=== PATIENT | male | born 1955 | race Caucasian/White ===

== ENCOUNTER 2019-07-04 10:08 | Outpatient (RCR) | payer MEDICARE, MEDICAID, SELFPAY ==
[2019-07-04 12:07] LABS: Add Urine Microscopic? YES; Bilirubin Urine Neg (NEGATIVE); Blood Urine Neg (Negative); Glucose Urine UA Norm (Normal); Ketones Urine Negative (Negative); Leukocyte Esterase Urine 2+ (Negative); Nitrate Urine Positive (Negative); Protein Urine Neg (Negative); Specific Gravity, Urine 1.015 (1.005-1.030); Sulfosalicylic Acid Urine Negative; Urine Appearance Cloudy (CLEAR); Urine Color Amber (Yellow); Urobilinogen Urine Norm (Negative); pH Urine 8.5 (5-7)
[2019-07-04 12:08] LABS: Add Urine Culture? Yes; Amorphous Sediment Urine 2+; Bacteria Urine 4+; Calcium Oxalate Crystals Urine 15-25 /hpf; Mucus Urine 1+; RBC Urine 0-4 /hpf (0-2); Squamous Epithelial Cell Urine 0-4 (0-5)
== END 2019-07-27 23:59 | disposition home or self-care (01) ==
LOC: LAB 10:08
PROVIDERS: Family Provider Physician Assistant Medical; Visit Provider Family Medicine
DX: N39.0 Urinary tract infection, site not specified (principal)
CPT/HCPCS: 81003; 87077; 87086; 87186

== ENCOUNTER 2019-07-17 13:28 | Outpatient (CLI) | payer MEDICARE, MEDICAID, SELFPAY ==
--- NOTE | 2019-07-17 13:37 | XRR_ITS ---
PROCEDURE INFORMATION: Exam: XR Abdomen, 1 View Exam date and time: 07/17/2019 1:54 PM Age: 63 years old Clinical indication: Condition or disease; Other: Calculus of urinary bladder; Patient HX: Best images possible PT is parapalegic TECHNIQUE: Imaging protocol: XR of the abdomen. Views: Frontal supine view of the abdomen. 1 View. COMPARISON: CR XR KUB [id number] 03/06/2019 2:19 PM FINDINGS: Gastrointestinal tract: Normal. No bowel dilation. Bones/joints: Unremarkable. XR/XR KUB [id number] IMPRESSION: No acute findings.
== END 2019-07-17 13:29 | disposition home or self-care (01) ==
LOC: RAD 13:33
PROVIDERS: Family Provider Physician Assistant Medical; PCP Urology; Visit Provider Urology
DX: N21.0 Calculus in bladder (principal)
CPT/HCPCS: 74018

== ENCOUNTER 2019-07-26 11:35 | Day surgery (SDC) | payer MEDICARE, MEDICAID, SELFPAY ==
[2019-07-25 16:06] VITALS: BMI 24.1
[2019-07-26 12:01] VITALS: BP 105/58; PULSE 79; RESP 18; TEMP 36.1; O2SAT 99
[2019-07-26] MEDS: sodium chloride 0.9% 1,000 ML 30 ML IV (12:11)
--- NOTE | 2019-07-26 12:23 | ANES.PREANES ---
Pre-Anesthetic Assessment Pre-Anesthetic Assessment: Height/Weight: Height 1.85 m Weight 83.007 kg Temp Pulse Resp BP Pulse Ox 96.9 F L 79 18 105/58 99 07/26/19 12:01 07/26/19 12:01 07/26/19 12:01 07/26/19 12:01 07/26/19 12:01 Preop Diagnosis: Cystolithiasis Proposed Procedure: Operation Date: 07/26/19 13:00 Proposed Procedures p Cystolitholapaxy(Not Applicable) - Jeet Tenorio MD Last intake: Intake Last Liquid Date 07/25/19 Last Solid Date 07/25/19 Social: Social History: No alcohol and No tobacco Exam: Pre-Anes Outpt Exam: alert, oriented x 3, clear to auscultation bilaterally and regular rate & rhythm Airway: Submandibular: WNL Cervical ROM: WNL MP: 2 Dentition: Full History/ROS: No significant history except as noted Pulmonary: Pulmonary: None reported CV/HEM: Comments: autonomic hyperreflexia : Comments: bladder stones, super pubic cath Hepatic: Hepatic: None reported GI: GI: None reported Metabolic: Metabolic: None reported Musc/skel: Comments: quadraplegic Neuropsych: Comments: C6-7 spinal cord injury Anesthetic Plan: ASA status: III Anesthesia: Anesthesia Evaluation and General Risk of > 500 ml blood loss (7ml/kg in children): No Meds/Allergies Current Medications: Current Medications Generic Name Dose Route Start Last Admin Trade Name Freq PRN Reason Stop Dose Admin Sodium Chloride 1,000 mls @ 30 ml s/hr 07/26/19 11:45 07/26/19 12:11 Sodium Chloride 0.9% IV 07/27/19 11:44 30 mls/hr .Q24H STEPHAN Administration PFSH Anesthesia PFSH: Medical History Bladder calculus (Acute) History of chronic urinary tract infection (Acute) Neurogenic bladder (Acute) Quadriplegia, unspecified (Acute) Surgical History History of back surgery (Acute) Family History Father , 86 CAD (coronary artery disease) Mother Diabetes Social History Smoking and tobacco status: former smoker Alcohol intake: never Adopted: No Caregiver/support person: No Lives independently: No Marital status: Single Current occupational status: disabled Data Anesthesia Cardiac Studies: No Data to Display
--- NOTE | 2019-07-26 12:42 | PM.HPUD ---
H&P update H&P Update: DATE OF SURGERY/PROCEDURE: 07/26/19 DATE H&P PERFORMED: 07/17/19 PLANNED PROCEDURE: Operation Date: 07/26/19 13:00 Proposed Procedures p Cystolitholapaxy(Not Applicable) - Jeet Tenorio MD Full H&P Medications/Allergies: Current Medications: Current Medications Generic Name Dose Route Start Last Admin Trade Name Freq PRN Reason Stop Dose Admin Sodium Chloride 1,000 mls @ 30 ml s/hr 07/26/19 11:45 07/26/19 12:11 Sodium Chloride 0.9% IV 07/27/19 11:44 30 mls/hr .Q24H STEPHAN Administration Perinent History: Medical/Surgical History: Medical History (Updated 07/17/19 @ 18:23 by Jeet Tenorio MD) Bladder calculus (Acute) History of chronic urinary tract infection (Acute) Neurogenic bladder (Acute) Quadriplegia, unspecified (Acute) Family History: Family History (Updated 07/04/19 @ 10:25 by Monique Gil RN) Father , 86 CAD (coronary artery disease) Mother Diabetes Social History: Social History Smoking and tobacco status: former smoker Alcohol intake: never Adopted: No Caregiver/support person: No Lives independently: No Marital status: Single Current occupational status: disabled
--- NOTE | 2019-07-26 13:52 | P.OP_ITS ---
Operative Report Date of procedure: July 26, 2019 Pre-op Diagnosis: Cystolithiasis Post-op diagnosis: same Procedure Done: Cystolitholapaxy greater than sign 2.5 cm Implants: Replaced suprapubic tube with 24 Cook Islander 10 cc balloon Specimens removed/disposition: Bladder stone fragment Pathology: other (Stone fragments) Surgeon: Jeet Tenorio Anesthesia: General Estimated blood loss: None Urine output: Not measured Complications: None Findings: 3 stones completely fragmented and evacuated from the bladder. No complications no problems. Condition: stable Brief History: Curtis is a quadriplegic with a longstanding suprapubic tube and despite utilizing Renacidin irrigation he has continued to form recurrent bladder stones. The right has been decreased though. Symptomatic bladder stones led to this admission for cystolitholapaxy. Procedure: After routine preoperative evaluation examination and obtaining of informed consent he was taken to the operating suite on 07/26/2019 where general anesthesia was administered without difficulty after appropriate timeout was performed, SCDs confirmed to be functioning, preoperative antibiotics administered, and beta-soto protocol confirmed. Prepped and draped in usual sterile fashion in dorsolithotomy position pain careful attention to avoiding pressure points. 23 Cook Islander cystoscope with 30 degree lens was introduced into the urethral meatus and advanced into the bladder under videoscopy. The stones were identified. The suprapubic site was used for replacement of a 24 Cook Islander Junior catheter with 10 cc and placed in the balloon. The stones were then fragmented with a 910 ?m holmium laser fiber into small enough pieces that were easily evacuated from the bladder with a new like evacuator. On final inspection all stones were confirmed to be out. The bladder mucosa was healthy without any significant trauma. The suprapubic catheter balloon was inflated in the bladder in the appropriate position was confirmed. Tolerated the procedure well without complications and was awakened in the operating room and returned to the care of room in stable condition. PLANS: 1. Follow-up in 3 months with KUB 2. Sooner for any concerns or questions.
[2019-07-26 13:57] VITALS: BP 146/84; PULSE 71; RESP 18; TEMP 36.7; O2SAT 100
[2019-07-26 14:00] VITALS: BP 135/68; PULSE 69; RESP 19; O2SAT 100
[2019-07-26 14:05] VITALS: BP 115/63; PULSE 73; RESP 20; TEMP 36.4; O2SAT 98
[2019-07-26 14:13] VITALS: BP 126/66; PULSE 86; RESP 16; TEMP 36.6; O2SAT 95
[2019-07-26 14:28] VITALS: BP 115/79; PULSE 76; RESP 16; O2SAT 96
--- NOTE | 2019-07-26 15:16 | SUR.PHASEI ---
1357- RECEIVED PATIENT IN PACU FROM OR VIA [facility]. RESP ARE EVEN AND NONLABORED. SIMPLE MASK APPLIED AT 6LPM, SAT 97%. HE IS AWAKE AND ALERT, DROWSY. NO S/S PAIN OR NAUSEA 1408- TRANSFERRED PATIENT FROM PACU TO OPS VIA [facility]. RESP ARE EVEN AND NONLABORED. SAT 96% WITH ROOM AIR. HE IS AWAKE AND ALERT, TALKATIVE. DENIES PAIN OR NAUSEA. TRANSITION OF CARE TO [facility]
--- NOTE | 2019-07-26 15:22 | SUR.PHASEII ---
FACE SHEET AND ORDER FOR ALLI FAXED TO [facility] SCHEDULING AND MAIN ADMISSIONS,FAXED TO BOTH PLACES CONFIRMED AT 1430 CALLED REBECCA IN [facility] SCHEDULING AT 1520 AND STATED SHE DIDN'T RECEIVE ANY PAPERWORK BUT WOULD SCHEDULE PT FOR BENB ON September AT 915AM
--- NOTE | 2019-07-26 16:24 | SUR.PHASEII ---
SPOKE WITH GISELA IN MAIN ADMISSIONS REGARDING KUB SCHEDULED FOR September AT 915AM AND STATES THAT SHE CAN SEE THE APPOINTMENT NOW BUT [facility] SCHEDULING IS AWAITING A DR'S ORDER,ORDER FAXED AND CONFIRMED MULTIPLE TIMES,OUTPATIENT REQUEST ALSO FILLED OUT AND FAXED TO [facility] SCHEDULING
--- NOTE | 2019-07-26 16:36 | SUR.PHASEII ---
SPOKE WITH REBECCA IN [facility]EN[facility]AL[facility]ED SCHEDULING AND ORDER RECEIVED PER REBECCA WITH OUTPATIENT REQUEST FORM FAXED TO HER
[2019-07-31 15:52] LABS: Stone Source BLADDER STONE
== END 2019-07-26 14:55 | disposition home or self-care (01) ==
PROVIDERS: Family Provider Physician Assistant Medical; PCP Urology; Visit Provider Urology
PROC: 0TCB8ZZ Extirpation of Matter from Bladder, Via Natural or Artificial Opening Endoscopic (ICD-10-PCS; CPT 52318; principal; 2019-07-26 13:00)
DX: N21.0 Calculus in bladder (principal); Z82.49 Family history of ischemic heart disease and other diseases of the circulatory system; Z83.3 Family history of diabetes mellitus; Z87.891 Personal history of nicotine dependence; Z87.440 Personal history of urinary (tract) infections
CPT/HCPCS: 52318; 12345; 82365; 88300; J1100; J2001; J2405; J2704; J3010; J7030

== ENCOUNTER 2019-07-27 14:39 | Outpatient (RCR) | payer MEDICARE, MEDICAID, SELFPAY | END 2019-07-27 23:59 | disposition home or self-care (01) | LOC: WOUND 14:39 | PROVIDERS: Family Provider Physician Assistant Medical; PCP Urology; Visit Provider Surgery | DX: I96 Gangrene, not elsewhere classified (principal); L89.153 Pressure ulcer of sacral region, stage 3 | CPT/HCPCS: 11044; 11047; 87070; 87176; 87205; 99213; G0463 ==

== ENCOUNTER 2019-07-31 08:33 | Outpatient (RCR) | payer MEDICARE, MEDICAID, SELFPAY ==
--- NOTE | 2019-07-31 08:45 | CT_ITS ---
WS: [id number] CT scan of the pelvis. Additional two-dimensional coronal and sagittal reconstruction was performed. 07/31/2019 Clinical Data: PAIN/REDNESS/NON HEALING ULCER/?OSTEOMYELITIS Comparison: CT pelvis, 12/28/2018 DLP: 367.[address] scans at [facility] use at least one of these dose optimization techniques: automat ed exposure control; mA and/or kV adjustment per patient size (includes targeted exams where dose is matched to clinical indication); or iterative reconstruction. Findings: There is an ulcer over the sacrum which has been noted on the previous scan. However no sacral osteom yelitis seen. There is also a possible subcutaneous fistula overlying the right hip but does not comm unicate with the bone. There is a catheter within the bladder. Oral contrast is within the small bowel. There is a large klaus unt of fecal material in the colon but no diverticulitis is noted. Osteoarthritic changes of the hips is present but there is no osteomyelitis. Degenerative change of the lower lumbar vertebral bodies i s present. There is degenerative disc disease at L4-L5. CT/CT pelvis w con* [id number] Impression: 1. Small ulcer overlying sacrum which does not cause sacral osteomyelitis. 2. Possible subcutaneous fistula in the right hip which does not communicate wi th the femoral head. 3. Osteoarthritis of the hips and the lower lumbar vertebral bodies but no oste omyelitis is present
[2019-07-31] MEDS: iohexol 300 mg/mL 50 mL Btl PO (08:54)
[2019-07-31 09:39] LABS: Blood Urea Nitrogen 17 mg/dL (8-23); Glomerular Filtration Rate 136.1 mL/min (90-130)
[2019-07-31] MEDS: iohexol 300 mg/mL 100 mL Btl IV (10:13)
== END 2019-08-25 23:59 | disposition home or self-care (01) ==
LOC: RAD 08:33
PROVIDERS: Family Provider Physician Assistant Medical; PCP Urology; Visit Provider Surgery
DX: L89.153 Pressure ulcer of sacral region, stage 3 (principal); L98.499 Non-pressure chronic ulcer of skin of other sites with unspecified severity; M16.0 Bilateral primary osteoarthritis of hip; M24.08 Loose body, other site; F17.200 Nicotine dependence, unspecified, uncomplicated; G82.50 Quadriplegia, unspecified; Z91.040 Latex allergy status
CPT/HCPCS: 11044; 11047; 36415; 72193; 82565; 84520

== ENCOUNTER 2019-08-03 14:16 | Outpatient (RCR) | payer MEDICARE, MEDICAID, SELFPAY | END 2019-08-25 23:59 | disposition home or self-care (01) | LOC: LAB 14:16 | PROVIDERS: Family Provider Physician Assistant Medical; PCP Urology; Visit Provider Family Medicine | DX: M79.605 Pain in left leg (principal); M79.604 Pain in right leg; L98.499 Non-pressure chronic ulcer of skin of other sites with unspecified severity ==

== ENCOUNTER 2019-12-07 10:47 | Outpatient (CLI) | payer MEDICARE, MEDICAID, SELFPAY ==
--- NOTE | 2019-12-07 10:59 | MRR_ITS ---
PROCEDURE INFORMATION: Exam: MR Pelvis Without and With Contrast, Sacrum Exam date and time: 12/07/2019 11:37 AM Age: 64 years old Clinical indication: Condition or disease; Other: Ulcer; Additional info: Pressure ulcer of sacrum stage 4 non-healing TECHNIQUE: Imaging protocol: Magnetic resonance images of the pelvis without and with intravenous contrast. Contrast material: PROHANCE; Contrast volume: 17 ml; Contrast route: INTRAVENOUS (IV); COMPARISON: No relevant prior studies available. FINDINGS: Tubes, catheters and devices: A suprapubic catheter is present in the bladder which is decompressed. Intraperitoneal space: No fluid collection identified. Bones/joints: There is extensive bone marrow edema within the bone marrow within the entire coccyx as well as the 5th segment of the sacrum. This is seen on T1 and T2 fat suppressed images. This marrow enhances on postcontrast images. This is also seen at the dorsal distal tip of the 4th sacral segment. Soft tissues: There is a large soft tissue ulceration extending from the posterior skin surface through the subcutaneous fat, reaching the posterior cortex of the coccyx. MR/MR pelvis wo/w con [id number] IMPRESSION: 1. Large posterior pressure ulcer extending from the skin to the posterior cortex of the coccyx. 2. Extensive bone marrow edema and marrow enhancement involving the entire coccyx, the 5th segment of the sacrum and the dorsal distal tip of the 4th segment of the sacrum consistent with osteomyelitis.
[2019-12-07 12:09] LABS: Blood Urea Nitrogen 12 mg/dL (8-23); Glomerular Filtration Rate 167.9 mL/min (90-130)
== END 2019-12-07 10:48 | disposition home or self-care (01) ==
LOC: RADSHAW 10:53
PROVIDERS: Family Provider Physician Assistant Medical; PCP Family Medicine; Visit Provider Nurse Practitioner Family
DX: L89.154 Pressure ulcer of sacral region, stage 4 (principal); R60.9 Edema, unspecified
CPT/HCPCS: 72197; 82565; 84520

== ENCOUNTER 2020-04-08 08:25 | Outpatient (CLI) | payer MEDICARE, MEDICAID, SELFPAY ==
--- NOTE | 2020-04-08 | MR_ITS ---
WS: [id number] MRI PELVIS with and without CONTRAST. COMPARISON: 12/07/2019 Multiplanar, multisequence imaging is performed with and without contrast. Sagittal and axial T1 fat sat sequences post-ProHance 17 cc IV. Suprapubic catheter present in a nondistended bladder. There is a soft tissue track with peripheral e nhancement extending through the midline of the pelvis near the gluteal cleft. This soft tissue tract extends to the distal coccyx. There is enhancement within the periphery. Mild improvement since the prior study with no significant progression. There is less marrow edema within the coccyx. There is a very minimal amount of edema in the fifth sacral segment and the adjacent coccyx. Very slight improv ement in the amount of marrow edema. There is still mild enhancement within the coccyx. Small amount of adjacent free fluid. Overall the presacral soft tissue enhancement is improving. No enhancement of the RIGHT ischial tuberosity. MR/MR pelvis wo/w con [id number] IMPRESSION: 1. Mild improvement in the marrow edema and enhancement involving the distal s acrum and coccyx. There is still a small amount of osteomyelitis involving the coccyx. 2. Slight improvement in the presacral soft tissue thickening and the enhancem ent along the decubitus ulcer tract since 12/07/2019.
== END 2020-04-08 08:26 | disposition home or self-care (01) ==
PROVIDERS: PCP Family Medicine; Visit Provider Internal Medicine Infectious Disease
DX: M86.68 Other chronic osteomyelitis, other site (principal); L89.152 Pressure ulcer of sacral region, stage 2; G82.54 Quadriplegia, C5-C7 incomplete; R60.0 Localized edema
CPT/HCPCS: 72197; A9579

== ENCOUNTER 2020-05-21 09:54 | Outpatient (CLI) | payer MEDICARE, MEDICAID, SELFPAY ==
--- NOTE | 2020-05-21 09:15 | XR_ITS ---
WS: [id number] XR KUB [id number] REASON FOR EXAM: bladder calculus FINDINGS: Compared to the previous examination of 07/17/2019, large bladder calculus is been removed. No urinary tract calculi are identified. Severe degenerative spondylosis in the lumbar spine. Inferior vena cava filter. Severe degenerative arthropathic change in the hip joints. XR/XR KUB [id number] IMPRESSION: No bladder calculus. No other urinary tract calculi.
== END 2020-05-21 09:55 | disposition home or self-care (01) ==
LOC: RAD 10:00
PROVIDERS: PCP Family Medicine; Visit Provider Urology
DX: N21.0 Calculus in bladder (principal)
CPT/HCPCS: 74018

== ENCOUNTER 2020-05-26 13:05 | Outpatient (CLI) | payer MEDICARE, MEDICAID, SELFPAY | END 2020-05-26 13:06 | disposition home or self-care (01) | LOC: WOUND 13:07 | PROVIDERS: PCP Family Medicine; Visit Provider Thoracic Surgery (Cardiothoracic Vascular Surgery) | DX: I96 Gangrene, not elsewhere classified (principal); L89.153 Pressure ulcer of sacral region, stage 3; L89.223 Pressure ulcer of left hip, stage 3 | CPT/HCPCS: 11042; 87070; 87077; 87176; 87186; 87205; G0463 ==

== ENCOUNTER 2020-09-08 13:16 | Outpatient (CLI) | payer MEDICARE, MEDICAID, SELFPAY ==
--- NOTE | 2020-09-08 13:21 | MR_ITS ---
WS: [id number] INDICATION: Left hip infection ulceration TECHNIQUE: MRI the left hip without and with gadolinium enhancement. Coronal T1, axial T1, coronal ST IR, sagittal T2 fat sat, sagittal T1, axial T2 fat sat, and post gadolinium imaging was obtained. FINDINGS: Soft tissue decubitus ulceration overlying the left posterior lateral hip. Associated soft tissue edema. Diffuse soft tissue thickening about the greater trochanter and femoral neck. No eviden ce of drainable abscess or fluid collection. Small fistulous tract extending to the skin with a small amount of air.. Replacement of the normal fatty bone marrow signal involving the femoral neck and gr eater trochanter with diffuse enhancement consistent with osteomyelitis. Preserved bone marrow signal in the femoral head. Abnormal bone marrow signal extends just into the proximal femoral shaft. Visua lized more distal femoral shaft appears normal. Reactive left inguinal lymph nodes. Soft tissue edema and enhancement extends into the gluteus musculature posteriorly. Suprapubic catheter. Previously described sacral decubitus ulcer is only partially visualized. MR/MR hip LT wo/w con [id number] IMPRESSION: 1. Posterior lateral decubitus ulcer overlying the left hip with diffuse soft tissue thickening. Associated enhancement and edema. 2. Fistulous tract extending to the skin with a small amount of air. No draina ble abscess or drainable fluid collection. 3. Replacement of the normal fatty bone marrow signal in the femoral neck and greater trochanter extending to the proximal femoral shaft. Diffuse associated enhancement. Findings consistent with osteomyelitis.
== END 2020-09-08 13:17 | disposition home or self-care (01) ==
LOC: RADSHAW 13:19
PROVIDERS: PCP Family Medicine; Visit Provider Family Medicine
DX: L08.9 Local infection of the skin and subcutaneous tissue, unspecified (principal); L89.229 Pressure ulcer of left hip, unspecified stage; R60.0 Localized edema
CPT/HCPCS: 73723; A9577

== ENCOUNTER 2020-11-20 09:59 | Outpatient (CLI) | payer MEDICARE, MEDICAID, SELFPAY ==
--- NOTE | 2020-11-20 09:30 | XR_ITS ---
WS: [id number] Exam: XR KUB [id number] Date/Time of Exam: 11/20/2020 9:30 AM Reason For Exam: N21.0 - Calculus in bladder Comparison 05/21/2020. Marked stool retention throughout the large bowel. Rectal fecal impaction. An IVC filter is in place. An opaque catheter ends in the central pelvic area. Significance is undetermined. No free air or acu te bowel obstruction. Advanced degenerative changes of the visualized hips. XR/XR KUB [id number] IMPRESSION: 1. Marked stool retention throughout the large bowel with rectal fecal impactio n. 2. Opaque catheter superimposing the pelvis. The significance is unclear. 3. No acute abdominal process.
== END 2020-11-20 10:00 | disposition home or self-care (01) ==
LOC: RAD 10:07
PROVIDERS: PCP Family Medicine; Visit Provider Urology
DX: N21.0 Calculus in bladder (principal); Z96.0 Presence of urogenital implants
CPT/HCPCS: 74018

== ENCOUNTER 2020-12-17 08:16 | Outpatient (CLI) | payer MEDICARE, MEDICAID, SELFPAY ==
--- NOTE | 2020-12-17 08:23 | MR_ITS ---
WS: [id number] MRI LEFT HIP with and without CONTRAST. COMPARISON: 09/08/2020 Multiplanar, multisequence imaging is performed with and without contrast. Moderate-sized decubitus ulcer over the posterior lateral LEFT hip soft tissues has moderately improv ed. The soft tissue tract and ulceration demonstrate improved edema. There is no longer air along the tract. There is less fluid along the tract. Improving amount of marrow edema in the femoral head and neck and also within the adjacent gluteal soft tissues. Mild distention of the greater trochanteric bursa. There is still enhancement within the soft tissues surrounding the greater tuberosity of the L EFT hip through the soft tissue ulceration but improved. There is a new peripherally enhancing collection medially positioned in the LEFT gluteal region near the ischial tuberosity. This collection measures 3.7 x 2.1 cm and was not present on the prior study. Small amount of fluid and enhancement around the LEFT ischial tuberosity. No enhancement within the marrow. Additional poorly defined fluid collection posterior to the RIGHT ischial tuberosity measuring 2.7 x 2.7 cm suspicious for an additional developing abscess. There is adjacent edema but no enhancement wi thin the bone. Additional peripherally enhancing collection measuring 3.0 x 1.8 cm in the midline just below the lotus cyx. Suprapubic catheter. MR/MR hip LT wo/w con [id number] IMPRESSION: 1. Previously described posterior lateral decubitus ulcer and tract posterior to the LEFT hip has moderately improved. Improving osteomyelitis involving the LEFT hip. 2. New small soft tissue ulcerations with enhancement associated with the isch ial tuberosities bilaterally and along the midline just below the coccyx. No as sociated osteomyelitis.
[2020-12-17] MEDS: gadobenate dimeglumine 20 mL vial IV (10:15)
== END 2020-12-17 08:17 | disposition home or self-care (01) ==
LOC: RADSHAW 08:20
PROVIDERS: PCP Family Medicine; Visit Provider Family Medicine
DX: M86.9 Osteomyelitis, unspecified (principal); L89.220 Pressure ulcer of left hip, unstageable
CPT/HCPCS: 73723; A9577

== ENCOUNTER 2021-05-28 12:48 | Outpatient (CLI) | payer MEDICARE, MEDICAID, SELFPAY ==
--- NOTE | 2021-05-28 12:57 | XR_ITS ---
WS: [id number] KUB, AP view, 05/28/2021 Clinical Data: BLADDER CALCULUS Comparison: KUB, 11/20/2020. Findings: No abnormal intraabdominal masses or calcifications are seen. There is no dilatated small bowel or ev idence of obstruction. There are phleboliths in the true pelvis. The IVC filter remains in position. There is a large amount of fecal material throughout the colon. T here is a levoscoliosis and severe osteoarthritis of the right hip. XR/XR KUB [id number] Impression: Large amount of fecal material in the colon.
== END 2021-05-28 12:49 | disposition home or self-care (01) ==
LOC: RAD 12:50
PROVIDERS: PCP Family Medicine; Visit Provider Urology
DX: N21.0 Calculus in bladder (principal)
CPT/HCPCS: 74018

== ENCOUNTER 2022-02-04 13:35 | Outpatient (CLI) | payer MEDICARE, MEDICAID, SELFPAY ==
--- NOTE | 2022-02-04 13:45 | XR_ITS ---
WS: [id number] XR KUB [id number] REASON FOR EXAM: BLADDER CALCULUS FINDINGS: Moderate colonic dilatation with significant stool retention from the right colon to the rectum. Caterina lar to previous examinations. IVC filter and presumed suprapubic catheter. There may be a bladder calculus superimposed on the bladder catheter tip. No other definite urinary tract calculi. XR/XR KUB [id number] IMPRESSION: Possible bladder calculus as above.
== END 2022-02-04 13:36 | disposition home or self-care (01) ==
LOC: RAD 13:35
PROVIDERS: PCP Internal Medicine; Visit Provider Urology
DX: N21.0 Calculus in bladder (principal); N31.9 Neuromuscular dysfunction of bladder, unspecified
CPT/HCPCS: 74018; 99213

== ENCOUNTER 2025-06-18 13:19 | Inpatient (IN) | payer MEDICARE, MEDICAID, SELFPAY ==
[2025-06-18] VITALS (24 sets, daily range): BP systolic 61–169; BP diastolic 38–102; PULSE 50–70; RESP 8–27; TEMP 35.9–36.6; O2SAT 93–99; BMI 21.7; BMI 20.9
--- OUTSIDE RECORDS SUMMARY | 2025-06-18 13:24 | XMS_ITS | Encounter Summary ---
Author Organization [facility] Address [address] [place] [address] Care Team Providers Care Senior Clerk Name Role Phone Panda Trevino MD Primary Care Provider [phone] Encounter Details Date Type Department Care Team (Late st Contact Info) Description 12/31/2019 Lab Requisition [facility] Laboratory Services [address] [place] [address] Panda Trevino MD [address] [place] [address] Social History Tobacco Use Types Packs/Day Years Used Date Smoking Tobacco: Never Smokeless Tobacco: Current Comments:one can per week x 20 Alcohol Use Standard Drinks/Week Comments No 0 (1 standard drink = 0.6 oz pur e alcohol) Sex and Gender Information Value Date Recorded Sex Assigned at Not on file 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 Blood Collection / Unknown 12/31/2019 8:14 AM CDT 12/31/2019 4:15 PM CDT Panda Trevino MD CHEMISTRY ORDERABLES Barbara l Result Performing Organization Address City/[facility]/ZIP Co de Phone Number [facility] [address] [place], [place] [id number] * (ABNORMAL) C-REACTIVE PROTEIN (12/31/2019 8:14 AM CDT) CRP 42.3(H) 0.0 - 5.0 mg/L 12/31/2019 4:34 PM CDT [facility] Blood Collection / Unknown 12/31/2019 8:14 AM CDT 12/31/2019 4:15 PM CDT Panda Trevino MD CHEMISTRY ORDERABLES Barbara l Result Performing Organization Address [facility] Co de Phone Number [place] [id number] [place], [place] [id number] documented in this encounter Visit Diagnoses Not on filedocumented in this encounter Care Teams Senior Clerk Relationship Specialty Start Date End Date Panda Trevino MD [address] [id number] PCP - General Family Practice 01/26/18 documented as of this encounter
--- OUTSIDE RECORDS SUMMARY | 2025-06-18 13:24 | XMS_ITS | Encounter Summary ---
Author Organization [facility] Address [address] [place] [address] Care Team Providers Care Groutman Name Role Phone Panda Trevino MD Primary Care Provider [phone] Reason for Referral * MRI (Routine) - Closed Specialty Diagnoses / Procedures Referred By Contac t Referred To Contact Radiology Diagnoses Pressure ulcer of sacral region, stage 4 (CMS/HCC) Procedures MRI PELVIS W WO CONTRAST Janneth Foy FNP Phone: tel: fax: [facility] [address] [place] [address] Phone: tel: fax: Referral ID Status Reason Start Date Expiration Date V isits Requested Visits Authorized [id number] Closed [facility] CTS to Schedule (SG) 11/14/2019 12/14/2020 1 1 Encounter Details Date Type Department Care Team (Latest Contact Info) Description 11/14/2019 Ancillary Orders [facility] Centralized Scheduling [address] [place] [address] Janneth Foy FNP [address] [place] [address] Pressure ulcer of sacral region, stage 4 (CMS/HCC) Social History Tobacco Use Types Packs/Day Years Used Date Smoking Tobacco: Never Smokeless Tobacco: Current Comments:one can per week x 20 Alcohol Use Standard Drinks/Week Comments No 0 (1 standard drink = 0.6 oz pur e alcohol) Sex and Gender Information Value Date Recorded Sex Assigned at Not on file 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 Gender Identity Not on file Sexual Orientation Not on file documented as of this encounter Plan of Treatment Not on file documented as of this encounter Results * MRI PELVIS W WO CONTRAST (12/07/2019) Anatomical Region Laterality Modality Pelvis Magnetic Resonan ce Janneth Foy COURIER MR ORDERABLES Final Result documented in this encounter Visit Diagnoses Diagnosis Pressure ulcer of sacral region, stage 4 (CMS/HCC) documented in this encounter Care Teams Groutman Relationship Specialty Start Date End Date Panda Trevino MD [address] [facility] [address] [place] [phone] PCP - General Family Practice 01/26/18 documented as of this encounter
--- OUTSIDE RECORDS SUMMARY | 2025-06-18 13:24 | XMS_ITS | Encounter Summary ---
Author Organization [facility] Address [address] [place] [address] Care Team Providers Care Hot Wire Glass Tube Cutter Name Role Phone Panda Trevino MD Primary Care Provider [phone] [phone] Encounter Details Date Type Department Care Team (Late st Contact Info) Description 11/29/2019 Lab Requisition [facility] Laboratory Services [address] [place] [address] Panda Trevino MD [address] [place] [address] Social History Tobacco Use Types Packs/Day Years Used Date Smoking Tobacco: Never Smokeless Tobacco: Current Comments:one can per week x 20 Alcohol Use Standard Drinks/Week Comments No 0 (1 standard drink = 0.6 oz pur e alcohol) Sex and Gender Information Value Date Recorded Sex Assigned at Not on file 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 No / Unsure 11/20/2019 12:59 PM CDT documented as of this encounter Plan of Treatment Not on file documented as of this encounter Procedures Procedure Name Priority Date/Time Associated Diagnosis Comments C-REACTIVE PROTEIN Stat 11/29/2019 7: 18 AM CDT documented in this encounter Results * (ABNORMAL) C-REACTIVE PROTEIN (11/29/2019 7:18 AM CDT) CRP 65.2(H) 0.0 - 5.0 mg/L 11/29/2019 2:15 PM CDT [facility] [employer] [facility] Blood Collection / Unknown 11/29/2019 7:18 AM CDT 11/29/2019 1:54 PM CDT us Panda Trevino MD CHEMISTRY ORDERABLES Barbara l Result [facility] [employer] [facility] CLIA# [id number] [address] [place] [address] documented in this encounter Visit Diagnoses Not on filedocumented in this encounter Care Teams Hot Wire Glass Tube Cutter Relationship Specialty Start Date End Date Panda Trevino MD [address] [facility] [address] [place] [phone] PCP - General Family Practice 01/26/18 documented as of this encounter
--- OUTSIDE RECORDS SUMMARY | 2025-06-18 13:24 | XMS_ITS | Encounter Summary ---
Author Organization [facility] Address [address] [place] [address] Care Team Providers Care Fire Tender Name Role Phone Panda Trevino MD Primary Care Provider +1 [phone] Encounter Details Date Type Department Care Team (Late st Contact Info) Description 11/01/2019 Lab Requisition [facility] Laboratory Services [address] [place] [address] [place] [address] Panda Trevino MD [address] [place] [address] Social History Tobacco Use Types Packs/Day Years Used Date Smoking Tobacco: Never Smokeless Tobacco: Current Comments:one can per week x 20 Alcohol Use Standard Drinks/Week Comments No 0 (1 standard drink = 0.6 oz pur e alcohol) Sex and Gender Information Value Date Recorded Sex Assigned at Not on file 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 Comment: Other - Also called Group A Streptococcus Beta Streptococcus groups A, B, C, and G are predictably susceptible to ampicillin, penicillin, and cefazolin, but may be resistant to erythromycin and/or clindamycin. Susceptibility not routinely performed CULTURE 1+ or few Streptococcus agalactiae(A) HUMERA MCG/ML 11/04/2019 7:37 AM CDT [facility] Comment: Other - Also called Group B Streptococcus Beta Streptococcus groups A, B, C, and G are predictably susceptible to ampicillin, penicillin, and cefazolin, but may be resistant to erythromycin and/or clindamycin. Susceptibility not routinely performed CULTURE STAPHYLOCOCCUS AUREUS(A) HUMERA MCG/ML 11/04/2019 7:37 AM CDT [facility] GRAM STAIN No organisms observed 11/04/2019 7:37 AM CDT [facility] GRAM STAIN No WBC observed 0 7:37 AM T [facility] Wound ENTIRE COCCYX / Unknown Collection / Unknown 11/01/2019 5:54 AM CDT 11/01/2019 2:18 PM CDT Narrative Organism Antibiotic Method Susceptibility Staphylococcus aureus CLINDAMYCIN HMUERA MCG/ML 0.25 mcg/mL: Susceptible Staphylococcus aureus ERYTHROMYCIN HUMERA MCG/ML <=0.25 mcg/mL: Susceptible Staphylococcus aureus OXACILLIN (Nafcillin) HUMERA MCG/ML 0.5 mcg/mL: Susceptible Comment:Oxacillin newberry sceptible S.aureus (MSSA) is predictably susceptible to cefazolin and ceftriaxone. Staphylococcus aureus TRIMETHOPRIM/ SULFAMETHOXAZOLE HUMERA MCG/ML <=10 mcg/mL: Susceptible Staphylococcus aureus VANCOMYCIN HUMERA MCG/ML 1 mcg/mL: Susceptible Staphylococcus aureus DOXYCYCLINE HUMERA MCG/ML <=0.5 mcg/mL: Susceptible Panda Trevino MD MICROBIOLOGY - GENERAL OR DERABLES Final Result [facility] CLIA# [id number] [address] [place] [address] documented in this encounter Visit Diagnoses Not on filedocumented in this encounter Care Teams Fire Tender Relationship Specialty Start Date End Date Panda Trevino MD [address] [phone] PCP - General Family Practice 01/26/18 documented as of this encounter
--- OUTSIDE RECORDS SUMMARY | 2025-06-18 13:24 | XMS_ITS | Encounter Summary ---
Author Organization [facility] Address [address] [place] [address] Care Team Providers Care Medical Bill Processor Name Role Phone Panda Trevino MD Primary Care Provider [phone] [phone] Encounter Details Date Type Department Care Team (Late st Contact Info) Description 10/04/2019 Lab Requisition [facility] Laboratory Services [address] [place] [address] [place] [address] Panda Trevino MD [address] [place] [address] Pressure ulcer of sacral region, stage 3 (CMS/HCC) Social History Tobacco Use Types Packs/Day Years Used Date Smoking Tobacco: Never Smokeless Tobacco: Current Comments:one can per week x 20 Alcohol Use Standard Drinks/Week Comments No 0 (1 standard drink = 0.6 oz pur e alcohol) Sex and Gender Information Value Date Recorded Sex Assigned at Not on file 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 Gender Identity Not on file Sexual Orientation Not on file documented as of this encounter Plan of Treatment Not on file documented as of this encounter Procedures Procedure Name Priority Date/Time Associated Diagnosis Comments C-REACTIVE PROTEIN Stat 10/04/2019 5 :24 AM CDT Pressure ulcer of sacral region, stage 3 documented in this encounter Results * (ABNORMAL) C-REACTIVE PROTEIN (10/04/2019 5:24 AM CDT) CRP 19.7(H) 0.0 - 5.0 mg/L 10/04/2019 2:07 PM CDT [facility] Blood Collection / Unknown 10/04/2019 5:24 AM CDT 10/04/2019 1:51 PM CDT Panda Trevino MD CHEMISTRY ORDERABLES Barbara dick Result [facility] [employer] [facility] CLIA# [id number] [address] [place] [address] documented in this encounter Visit Diagnoses Diagnosis Pressure ulcer of sacral region, stage 3 (CMS/HCC) documented in this encounter Care Teams Medical Bill Processor Relationship Specialty Start Date End Date Panda Trevino MD [address] [facility] [address] [place] [phone] PCP - General Family Practice 01/26/18 documented as of this encounter
--- OUTSIDE RECORDS SUMMARY | 2025-06-18 13:24 | XMS_ITS | Encounter Summary ---
Author Organization [facility] Address [address] [place] [address] Care Team Providers Care Collateral Analyst Name Role Phone Panda Trevino MD Primary Care Provider [phone] [phone] Encounter Details Date Type Department Care Team (Late st Contact Info) Description 11/02/2019 Lab Requisition [facility] Laboratory Services [address] [place] [address] [place] [address] Panda Trevino MD [address] [place] [address] Social History Tobacco Use Types Packs/Day Years Used Date Smoking Tobacco: Never Smokeless Tobacco: Current Comments:one can per week x 20 Alcohol Use Standard Drinks/Week Comments No 0 (1 standard drink = 0.6 oz pur e alcohol) Sex and Gender Information Value Date Recorded Sex Assigned at Not on file 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 Gender Identity Not on file Sexual Orientation Not on file documented as of this encounter Plan of Treatment Not on file documented as of this encounter Procedures Procedure Name Priority Date/Time Associated Diagnosis Comments C-REACTIVE PROTEIN Stat 11/02/2019 8: 37 AM CDT documented in this encounter Results * (ABNORMAL) C-REACTIVE PROTEIN (11/02/2019 8:37 AM CDT) CRP 90.8(H) 0.0 - 5.0 mg/L 11/02/2019 4:08 PM CDT [facility] [employer] [facility] Blood 11/02/2019 8:37 AM CDT 11/02/2019 3:51 PM CDT Panda Trevino MD CHEMISTRY ORDERABLES Barbara dick Result [facility] CLVT# [id number] [address] [place] [address] documented in this encounter Visit Diagnoses Not on filedocumented in this encounter Care Teams Collateral Analyst Relationship Specialty Start Date End Date Panda Trevino MD [address] [address] PCP - General Family Practice 01/26/18 documented as of this encounter
--- OUTSIDE RECORDS SUMMARY | 2025-06-18 13:24 | XMS_ITS | Encounter Summary ---
Author Organization [facility] Address [address] [place] [address] Care Team Providers Care Lacing String Cutter Name Role Phone Panda Trevino MD Primary Care Provider +1 [phone] Encounter Details Date Type Department Care Team (Late st Contact Info) Description 12/19/2019 Lab Requisition [facility] Laboratory Services [address] [place] [address] Panda Trevino MD [address] [place] [address] Social History Tobacco Use Types Packs/Day Years Used Date Smoking Tobacco: Never Smokeless Tobacco: Current Comments:one can per week x 20 Alcohol Use Standard Drinks/Week Comments No 0 (1 standard drink = 0.6 oz pur e alcohol) Sex and Gender Information Value Date Recorded Sex Assigned at Not on file 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 Gender Identity Not on file Sexual Orientation [...] Date/Time Associated Diagnosis Comments C-REACTIVE PROTEIN Stat 12/19/2019 7: 34 AM CDT CK Stat 12/19/2019 7:34 AM CDT documented in this encounter Results * CK (12/19/2019 7:34 AM CDT) CK 108 39 - 308 U/L 12/19/2019 5:21 PM CDT [facility] Blood 12/19/2019 7:34 AM CDT 12/19/2019 5:05 PM CDT Panda Trevino MD CHEMISTRY ORDERABLES Barbara l Result [facility] CLIA# [id number] [address] [place], [place] [address] * (ABNORMAL) C-REACTIVE PROTEIN (12/19/2019 7:34 AM CDT) CRP 66.6(H) 0.0 - 5.0 mg/L 12/19/2019 5:21 PM CDT [facility] Blood 12/19/2019 7:34 AM CDT 12/19/2019 5:05 PM CDT Panda Trevino MD CHEMISTRY ORDERABLES Barbara l Result Performing Organization Address City/[facility]/ZIP Co de Phone Number [facility] CLIA# [id number] [address] [place], [place] [address] documented in this encounter Visit Diagnoses Not on filedocumented in this encounter Care Teams Lacing String Cutter Relationship Specialty Start Date End Date Panda Trevino MD [address] [phone] PCP - General Family Practice 01/26/18 documented as of this encounter
--- OUTSIDE RECORDS SUMMARY | 2025-06-18 13:24 | XMS_ITS | Encounter Summary ---
Author Organization [facility] Address [address] [place] [address] Care Team Providers Care Lapping Machine Tender Name Role Phone Panda Trevino MD Primary Care Provider [phone] [phone] Encounter Details Date Type Department Care Team (Late st Contact Info) Description 01/09/2020 Lab Requisition [facility] Laboratory Services [address] [place] [address] [place] [address] Panda Trevino MD [address] [place] [address] Social History Tobacco Use Types Packs/Day Years Used Date Smoking Tobacco: Never Smokeless Tobacco: Current Comments:one can per week x 20 Alcohol Use Standard Drinks/Week Comments No 0 (1 standard drink = 0.6 oz pur e alcohol) Sex and Gender Information Value Date Recorded Sex Assigned at Not on file 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 Gender Identity Not on file Sexual Orientation Not on file documented as of this encounter Plan of Treatment Not on file documented as of this encounter Procedures Procedure Name Priority Date/Time Associated Diagnosis Comments CBC WITH DIFFERENTIAL Routine 01/09/2020 5:10 AM CDT C-REACTIVE PROTEIN Routine 01/09/2020 5: 10 AM CDT CK Routine 01/09/2020 5:10 AM CDT documented in this encounter Results * (ABNORMAL) CK (01/09/2020 5:10 AM CDT) CK 446(H) 39 - 308 U/L 01/09/2020 2:48 PM CDT [facility] Blood Collection / Unknown 01/09/2020 5:10 AM CDT 01/09/2020 2:26 PM CDT Panda Trevino MD CHEMISTRY ORDERABLES Barbara l Result Performing Organization Address [facility] Co de Phone Number [address] [phone] * (ABNORMAL) C-REACTIVE PROTEIN (01/09/2020 5:10 AM CDT) Pathologist [facility] CRP 59.1(H) 0.0 - 5.0 mg/L 01/09/2020 2:48 PM CDT [facility] Blood Collection / Unknown 01/09/2020 5:10 AM CDT 01/09/2020 2:26 PM CDT Panda Trevino MD CHEMISTRY ORDERABLES Barbara l Result Performing Organization Address [facility] Phone Number [address] [address] * (ABNORMAL) CBC WITH DIFFERENTIAL (01/09/2020 5:10 AM CDT) Pathologist [facility] WBC 10.8 4.8 - 10.8 K/uL 01/09/2020 2:33 PM CDT [facility] RBC 3.82(L) 4.60 - 6.20 M/uL 01/09/2020 2:33 PM CDT [facility] HEMOGLOBIN 10.0(L) 14.0 - 18.0 g/dL 01/09/2020 2:33 PM CDT [facility] HEMATOCRIT 32.3(L) 41.0 - 53.0 % 01/09/2020 2:33 PM CDT [facility] MCV 84.6 84.0 - 103.0 fL 01/09/2020 2:33 PM [facility] MCH 26.2(L) 27.0 - 34.0 pg 01/09/2020 2:33 PM [facility] MCHC 31.0 30.0 - 35.0 g/dL 01/09/2020 2:33 PM [facility] RDW 15.3(H) 11.0 - 14.5 % 01/09/2020 2:33 PM [facility] RDW-STDEV 46.2 37.0 - 54.0 fL 01/09/2020 2:33 PM [facility] PLATELETS 367 140 - 440 K/uL 01/09/2020 2:33 PM [facility] MPV 9.1 8.9 - 12.8 fL 01/09/2020 2:33 PM [facility] NEUTROPHILS 63 42 - 75 % 01/09/2020 2:33 PM [facility] LYMPHOCYTES 22(L) 24 - 44 % 01/09/2020 2:33 PM [facility] MONOCYTES 11(H) 2 - 10 % 01/09/2020 2:33 PM [facility] EOSINOPHILS 3 0 - 7 % 01/09/2020 2:33 PM [facility] BASOPHILS 0 0 - 1 % 01/09/2020 2:33 PM [facility] IMMATURE GRANULOCYTES 1 0 - 2 % 01/09/2020 2:33 PM [facility] NEUTROPHIL ABSOLUTE 6.80 2.00 - 8.00 K/uL 01/09/2020 2:33 PM [facility] LYMPHOCYTE ABSOLUTE 2.36 1.20 - 4.00 K/uL 01/09/2020 2:33 PM [facility] MONOCYTE ABSOLUTE 1.20(H) 0.10 - 0.60 K/uL 01/09/2020 2:33 PM [facility] EOSINOPHIL ABSOLUTE 0.27 0.00 - 0.70 K/uL 01/09/2020 2:33 PM [facility] BASOPHILS ABSOLUTE 0.04 0.00 - 0.20 K/uL 01/09/2020 2:33 PM CDT [facility] IMMATURE GRANULOCYTES ABSOLUTE 0.13(H) 0.00 - 0.10 K/uL 01/09/2020 2:33 PM CDT [facility] Blood Collection / Unknown 01/09/2020 5:10 AM CDT 01/09/2020 2:25 PM CDT us Panda Trevino MD HEMATOLOGY ORDERABLES Fin al Result [facility] [address] [place] [address] documented in this encounter Visit Diagnoses Not on filedocumented in this encounter Care Teams Lapping Machine Tender Relationship Specialty Start Date End Date Panda Trevino MD [address] [phone] PCP - General Family Practice 01/26/18 documented as of this encounter
--- OUTSIDE RECORDS SUMMARY | 2025-06-18 13:24 | XMS_ITS | Encounter Summary ---
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 Gender Identity Not on file Sexual Orientation Not on file documented as of this encounter Plan of Treatment Not on file documented as of this encounter Procedures Procedure Name Priority Date/Time Associated Diagnosis Comments C-REACTIVE PROTEIN Stat 09/13/2019 8: 52 AM CDT Pressure ulcer of sacral region, stage 3 documented in this encounter Results * (ABNORMAL) C-REACTIVE PROTEIN (09/13/2019 8:52 AM CDT) CRP 15.9(H) 0.0 - 5.0 mg/L 09/13/2019 5:08 PM CDT [facility] Blood Collection / Unknown 09/13/2019 8:52 AM CDT 09/13/2019 4:50 PM CDT Panda Trevino MD CHEMISTRY ORDERABLES Barbara dick Result [facility] [employer] [facility] CLIA# [id number] [address] [place] [address] documented in this encounter Visit Diagnoses Diagnosis Pressure ulcer of sacral region, stage 3 (CMS/HCC) documented in this encounter Care Teams Molding Machine Tender Relationship Specialty Start Date End Date Panda Trevino MD [address] [facility] [address] [place] [address] PCP - General Family Practice 01/26/18 documented as of this encounter
--- OUTSIDE RECORDS SUMMARY | 2025-06-18 13:24 | XMS_ITS | Encounter Summary ---
Author Organization [facility] Address [address] [place] [address] Care Team Providers Care Ampoule Sealer Name Role Phone Panda Trevino MD Primary Care Provider +1 [phone] Encounter Details Date Type Department Care Team (Late st Contact Info) Description 12/22/2019 Lab Requisition [facility] Laboratory Services [place] [address] [facility] [address] [place] [address] Panda Trevino MD [address] [place] [phone] Other acute osteomyelitis, unspecified site (CMS/HCC); Pressure ulcer of sacral region, stage 3 (CMS/HCC) Social History Tobacco Use Types Packs/Day Years Used Date Smoking Tobacco: Never Smokeless Tobacco: Current Comments:one can per week x 20 Alcohol Use Standard Drinks/Week Comments No 0 (1 standard drink = 0.6 oz pur e alcohol) Sex and Gender Information Value Date Recorded Sex Assigned at Not on file 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 Gender Identity Not on file Sexual Orientation Not on file documented as of this encounter Plan of Treatment Not on file documented as of this encounter Procedures Procedure Name Priority Date/Time Associated Diagnosis Comments CBC WITH DIFFERENTIAL Routine 12/22/2019 12:05 PM CDT C-REACTIVE PROTEIN Routine 12/22/2019 12 :05 PM CDT CK Routine 12/22/2019 12:05 PM CDT COMPREHENSIVE METABOLIC PANEL Routine 12/22/2019 12:05 PM CDT documented in this encounter Results * (ABNORMAL) CBC WITH DIFFERENTIAL (12/22/2019 12:05 PM CDT) WBC 12.7(H) 4.2 - 9.1 K/uL 12/22/2019 1:27 PM [facility] RBC 4.30(L) 4.63 - 6.08 M/uL 12/22/2019 1:27 PM [facility] HEMOGLOBIN 11.3(L) 13.7 - 17.5 g/dL 12/22/2019 1:27 PM [facility] HEMATOCRIT 36.0(L) 40.1 - 51.0 % 12/22/2019 1:27 PM [facility] MCV 83.7 79.0 - 92.2 fL 12/22/2019 1:27 PM [facility] MCH 26.3 25.7 - 32.2 pg 12/22/2019 1:27 PM [facility] MCHC 31.4(L) 32.3 - 36.5 g/dL 12/22/2019 1:27 PM [facility] RDW 14.6(H) 11.0 - 14.5 % 12/22/2019 1:27 PM [facility] RDW-STDEV 44.3 36.9 - 56.9 fL 12/22/2019 1:27 PM [facility] PLATELETS 438(H) 130 - 400 K/uL 12/22/2019 1:27 PM [facility] MPV 8.7(L) 10.0 - 14.8 fL 12/22/2019 1:27 PM [facility] NEUTROPHILS 65 34 - 68 % 12/22/2019 1:27 PM [facility] LYMPHOCYTES 22 22 - 53 % 12/22/2019 1:27 PM [facility] MONOCYTES 9 5 - 12 % 12/22/2019 1:27 PM [facility] EOSINOPHILS 2 1 - 7 % 12/22/2019 1:27 PM [facility] BASOPHILS 0 0 - 1 % 12/22/2019 1:27 PM CDT [facility] IMMATURE GRANULOCYTES 2 % 12/22/2019 1:27 PM CDT [facility] NEUTROPHIL ABSOLUTE 8.24(H) 1.78 - 5.38 K/uL 12/22/2019 1:27 PM CDT [facility] LYMPHOCYTE ABSOLUTE 2.76 1.20 - 3.40 K/uL 12/22/2019 1:27 PM CDT [facility] MONOCYTE ABSOLUTE 1.13(H) 0.30 - 0.82 K/uL 12/22/2019 1:27 PM CDT [facility] EOSINOPHIL ABSOLUTE 0.28 0.04 - 0.54 K/uL 12/22/2019 1:27 PM CDT [facility] BASOPHILS ABSOLUTE 0.04 0.01 - 0.08 K/uL 12/22/2019 1:27 PM CDT [facility] IMMATURE GRANULOCYTES ABSOLUTE 0.22 K/uL 12/22/2019 1:27 PM CDT [facility] Blood 12/22/2019 12:0 5 PM CDT 12/22/2019 1:12 PM CDT Panda Trevino MD HEMATOLOGY ORDERABLES Fin al Result Performing Organization Address [facility] Co de Phone Number [facility] CLIA # [id number] [address] [place] [address] * (ABNORMAL) C-REACTIVE PROTEIN (12/22/2019 12:05 PM CDT) CRP 42.1(H) <5.0 mg/L 12/22/2019 1:48 PM CDT [facility] Blood 12/22/2019 12:0 5 PM CDT 12/22/2019 1:12 PM CDT Panda Trevino MD CHEMISTRY ORDERABLES Barbara l Result Performing Organization Address City/[facility]/ZIP Co de Phone Number [facility] CLIA # [id number] [address] [place] [address] * CK (12/22/2019 12:05 PM CDT) CK 146 39 - 308 U/L 12/22/2019 1:49 PM [facility] Blood 12/22/2019 12:0 5 PM CDT 12/22/2019 1:12 PM CDT Panda Trevino MD CHEMISTRY ORDERABLES Barbara l Result [facility] CLIA # [id number] [address] [place] [address] * (ABNORMAL) COMPREHENSIVE METABOLIC PANEL (12/22/2019 12:05 PM CDT) Pathologist [facility] SODIUM 134(L) 136 - 145 mmol/L 12/22/2019 1:49 PM [facility] POTASSIUM 3.9 3.5 - 5.1 mmol/L 12/22/2019 1:49 PM [facility] CHLORIDE 100 98 - 107 mmol/L 12/22/2019 1:49 PM [facility] CO2 25 22 - 29 mmol/L 12/22/2019 1:49 PM [facility] CALCIUM 9.3 8.8 - 10.2 mg/dL 12/22/2019 1:49 PM [facility] BUN 12 8 - 23 mg/dL 12/22/2019 1:49 PM [facility] CREATININE 0.64(L) 0.67 - 1.17 mg/dL 12/22/2019 1:49 PM [facility] GLUCOSE 91 74 - 99 mg/dL 12/22/2019 1:49 PM [facility] TOTAL PROTEIN 8.2 6.6 - 8.7 g/dL 12/22/2019 1:49 PM [facility] ALBUMIN 3.6 3.5 - 5.2 g/dL 12/22/2019 1:[address] [facility] BILIRUBIN TOTAL 0.2 <=1.2 mg/dL 12/22/2019 1:49 PM CDT [facility] ALKALINE PHOSPHATASE 83 40 - 129 U/L 12/22/2019 1:49 PM CDT [facility] AST 22 10 - 50 U/L 12/22/2019 1:49 PM CDT [facility] ALT 19 10 - 50 U/L 12/22/2019 1:49 PM T [facility] GFR >60 >=60 mL/min/1.7 3 sq meter 12/22/2019 1:49 PM T [facility] Comment: eGFR has not been validated for use in the elderly (> 70 years of age), women, patients with serious co-morbid conditions, or persons with extremes of body size or muscle mass and should also be interpreted with caution in patients with acute kidney failure, dialysis dependent patients, patients reporting exceptional dietary intake (e.g. vegetarian diet, high protein diets, creatine supplementation), and patients with severe liver disease. Based on National Kidney Disease Education Program If patient is , please refer to the GFR result. GFR, >60 >=60 mL/min/1.7 3 sq meter 12/22/2019 1:49 PM CDT [facility] ANION GAP 9(L) 12 - 20 mmol/L 12/22/2019 1:49 PM [facility] Blood 12/22/2019 12:0 5 PM CDT 12/22/2019 1:12 PM CDT Panda Trevino MD CHEMISTRY ORDERABLES Barbara l Result [facility] CLIA # [id number] [address] [address] documented in this encounter Visit Diagnoses Diagnosis Other acute osteomyelitis, unspecified site (CMS/HCC) Pressure ulcer of sacral region, stage 3 (CMS/HCC) documented in this encounter Care Teams Ampoule Sealer Relationship Specialty Start Date End Date Panda Trevino MD [address] [address] PCP - General Family Practice 01/26/18 documented as of this encounter
--- OUTSIDE RECORDS SUMMARY | 2025-06-18 13:24 | XMS_ITS | Encounter Summary ---
Author Organization [facility] Address [address] [place] [address] Care Team Providers Care Scraper Loader Operator Name Role Phone Panda Trevino MD Primary Care Provider +1 [phone] Encounter Details Date Type Department Care Team (Late st Contact Info) Description 01/03/2020 Lab Requisition [facility] Laboratory Services [address] [place] [address] Panda Trevino MD [address] [place] [address] Social History Tobacco Use Types Packs/Day Years Used Date Smoking Tobacco: Never Smokeless Tobacco: Current Comments:one can per week x 20 Alcohol Use Standard Drinks/Week Comments No 0 (1 standard drink = 0.6 oz pur e alcohol) Sex and Gender Information Value Date Recorded Sex Assigned at Not on file 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 Gender Identity Not on file Sexual Orientation Not on file documented as of this encounter Plan of Treatment Not on file documented as of this encounter Procedures Procedure Name Priority Date/Time Associated Diagnosis Comments C-REACTIVE PROTEIN Stat 01/03/2020 6: 03 AM CDT CK Stat 01/03/2020 6:03 AM CDT documented in this encounter Results * (ABNORMAL) CK (01/03/2020 6:03 AM CDT) CK 546(H) 39 - 308 U/L 01/03/2020 6:00 PM CDT [facility] Blood 01/03/2020 6:03 AM CDT 01/03/2020 5:40 PM CDT Panda Trevino MD CHEMISTRY ORDERABLES Barbara l Result Performing Organization Address [facility] de Phone Number [facility] [address] [place] [address] * (ABNORMAL) C-REACTIVE PROTEIN (01/03/2020 6:03 AM CDT) CRP 73.8(H) 0.0 - 5.0 mg/L 01/03/2020 6:00 PM CDT [facility] Blood 01/03/2020 6:03 AM CDT 01/03/2020 5:40 PM CDT Panda Trevino MD CHEMISTRY ORDERABLES Barbara l Result Performing Organization Address [facility] de Phone Number [place] [place], [place] [id number] documented in this encounter Visit Diagnoses Not on filedocumented in this encounter Care Teams Scraper Loader Operator Relationship Specialty Start Date End Date Panda Trevino MD [address] [facility] [address] [place] [phone] PCP - General Family Practice 01/26/18 documented as of this encounter
--- OUTSIDE RECORDS SUMMARY | 2025-06-18 13:24 | XMS_ITS | Encounter Summary ---
Author Organization [facility] Address [address] [place] [address] Care Team Providers Care Agricultural Extension Educator Name Role Phone Panda Trevino MD Primary Care Provider +1 [phone] Encounter Details Date Type Department Care Team (Late st Contact Info) Description 12/28/2019 Lab Requisition [facility] Laboratory Services [address] [place] [address] Panda Trevino MD [address] [place] [address] Social History Tobacco Use Types Packs/Day Years Used Date Smoking Tobacco: Never Smokeless Tobacco: Current Comments:one can per week x 20 Alcohol Use Standard Drinks/Week Comments No 0 (1 standard drink = 0.6 oz pur e alcohol) Sex and Gender Information Value Date Recorded Sex Assigned at Not on file 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 Gender Identity Not on file Sexual Orientation Not on file documented as of this encounter Plan of Treatment Not on file documented as of this encounter Procedures Procedure Name Priority Date/Time Associated Diagnosis Comments CBC WITH DIFFERENTIAL Stat 12/28/2019 8:38 AM CDT C-REACTIVE PROTEIN Stat 12/28/2019 8: 38 AM CDT CK Stat 12/28/2019 8:38 AM CDT documented in this encounter Results * (ABNORMAL) CK (12/28/2019 8:38 AM CDT) [facility] CK 484(H) 39 - 308 U/L 12/28/2019 12:12 PM CDT [facility] Blood 12/28/2019 8:38 AM CDT 12/28/2019 11:51 AM CDT Panda Trevino MD CHEMISTRY ORDERABLES Barbara l Result Performing Organization Address City/[facility]/ZIP Co de Phone Number [facility] CLIA# [id number] [address] [place] [address] * (ABNORMAL) C-REACTIVE PROTEIN (12/28/2019 8:38 AM CDT) [facility] CRP 36.0(H) 0.0 - 5.0 mg/L 12/28/2019 12:12 PM CDT [facility] Blood 12/28/2019 8:38 AM CDT 12/28/2019 11:51 AM CDT Panda Trevino MD CHEMISTRY ORDERABLES Barbara l Result Performing Organization Address City/[facility] Co de Phone Number [facility] CLIA# [id number] [address] [place] [address] * (ABNORMAL) CBC WITH DIFFERENTIAL (12/28/2019 8:38 AM CDT) [facility] WBC 8.9 4.8 - 10.8 K/uL 12/28/2019 11:57 AM CDT [facility] RBC 4.10(L) 4.60 - 6.20 M/uL 12/28/2019 11:57 AM CDT [facility] HEMOGLOBIN 10.9(L) 14.0 - 18.0 g/dL 12/28/2019 11:57 AM CDT [facility] HEMATOCRIT 35.1(L) 41.0 - 53.0 % 12/28/2019 11:57 AM CDT [facility] MCV 85.6 84.0 - 103.0 fL 12/28/2019 11:57 AM [facility] [employer] [facility] MCH 26.6(L) 27.0 - 34.0 pg 12/28/2019 11:57 AM [facility] [employer] [facility] MCHC 31.1 30.0 - 35.0 g/dL 12/28/2019 11:57 AM [facility] [employer] [facility] RDW 15.1(H) 11.0 - 14.5 % 12/28/2019 11:57 AM [facility] [employer] [facility] RDW-STDEV 46.5 37.0 - 54.0 fL 12/28/2019 11:57 AM [facility] [employer] [facility] PLATELETS 332 140 - 440 K/uL 12/28/2019 11:57 AM [facility] [employer] [facility] MPV 8.9 8.9 - 12.8 fL 12/28/2019 11:57 AM [facility] [employer] [facility] NEUTROPHILS 66 42 - 75 % 12/28/2019 11:57 AM [facility] [employer] [facility] LYMPHOCYTES 23(L) 24 - 44 % 12/28/2019 11:57 AM [facility] [employer] [facility] MONOCYTES 6 2 - 10 % 12/28/2019 11:57 AM [facility] [employer] [facility] EOSINOPHILS 3 0 - 7 % 12/28/2019 11:57 AM [facility] [employer] [facility] BASOPHILS 0 0 - 1 % 12/28/2019 11:57 AM [facility] [employer] [facility] IMMATURE GRANULOCYTES 2 0 - 2 % 12/28/2019 11:57 AM [facility] [employer] [facility] NEUTROPHIL ABSOLUTE 5.88 2.00 - 8.00 K/uL 12/28/2019 11:57 AM [facility] [employer] [facility] LYMPHOCYTE ABSOLUTE 2.08 1.20 - 4.00 K/uL 12/28/2019 11:57 AM [facility] [employer] [facility] MONOCYTE ABSOLUTE 0.56 0.10 - 0.60 K/uL 12/28/2019 11:57 AM [facility] [employer] [facility] EOSINOPHIL ABSOLUTE 0.22 0.00 - 0.70 K/uL 12/28/2019 11:57 AM [facility] [employer] SERVICES - [place] BASOPHILS ABSOLUTE 0.04 0.00 - 0.20 K/uL 12/28/2019 11:57 AM CDT [facility] IMMATURE GRANULOCYTES ABSOLUTE 0.13(H) 0.00 - 0.10 K/uL 12/28/2019 11:57 AM CDT [facility] Blood 12/28/2019 8:38 AM CDT 12/28/2019 11:51 AM CDT us Panda Trevino MD HEMATOLOGY ORDERABLES Fin al Result [facility] CLIA# [id number] [address] [place] [address] documented in this encounter Visit Diagnoses Not on filedocumented in this encounter Care Teams Agricultural Extension Educator Relationship Specialty Start Date End Date Panda Trevino MD [address] [facility] [address] [place] [phone] PCP - General Family Practice 01/26/18 documented as of this encounter
--- OUTSIDE RECORDS SUMMARY | 2025-06-18 13:24 | XMS_ITS | Encounter Summary ---
Author Organization [facility] Address [address] [place] [address] Care Team Providers Care Director [employer] Name Role Phone Panda Trevino MD Primary Care Provider [phone] [phone] Encounter Details Date Type Department Care Team (Late st Contact Info) Description 01/27/2020 Lab Requisition [facility] Laboratory Services [place] [address] [address] Panda Trevino MD [address] [place] [address] Social History Tobacco Use Types Packs/Day Years Used Date Smoking Tobacco: Never Smokeless Tobacco: Current Comments:one can per week x 20 Alcohol Use Standard Drinks/Week Comments No 0 (1 standard drink = 0.6 oz pur e alcohol) Sex and Gender Information Value Date Recorded Sex Assigned at Not on file 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 Gender Identity Not on file Sexual Orientation Not on file documented as of this encounter Plan of Treatment Not on file documented as of this encounter Procedures Procedure Name Priority Date/Time Associated Diagnosis Comments CBC WITH DIFFERENTIAL Routine 01/27/2020 10:33 AM CDT C-REACTIVE PROTEIN Routine 01/27/2020 10 :33 AM CDT CK Routine 01/27/2020 10:33 AM CDT documented in this encounter Results * (ABNORMAL) C-REACTIVE PROTEIN (01/27/2020 10:33 AM CDT) CRP 19.5(H) <5.0 mg/L 01/27/2020 11:37 AM CDT [facility] Blood 01/27/2020 10:3 3 AM CDT 01/27/2020 10:59 AM CDT Panda Trevino MD CHEMISTRY ORDERABLES Barbara l Result [facility] CLIA # [id number] [address] [place] [address] * (ABNORMAL) CK (01/27/2020 10:33 AM CDT) CK 584(H) 39 - 308 U/L 01/27/2020 11:55 AM CDT [facility] Blood 01/27/2020 10:3 3 AM CDT 01/27/2020 10:59 AM CDT Panda Trevino MD CHEMISTRY ORDERABLES Barbara l Result [facility] CLIA # [id number] [address] [place] [address] * (ABNORMAL) CBC WITH DIFFERENTIAL (01/27/2020 10:33 AM CDT) WBC 9.7(H) 4.2 - 9.1 K/uL 01/27/2020 11:03 AM [facility] RBC 4.02(L) 4.63 - 6.08 M/uL 01/27/2020 11:03 AM [facility] HEMOGLOBIN 10.6(L) 13.7 - 17.5 g/dL 01/27/2020 11:03 AM [facility] HEMATOCRIT 33.9(L) 40.1 - 51.0 % 01/27/2020 11:03 AM [facility] MCV 84.3 79.0 - 92.2 fL 01/27/2020 11:03 AM [facility] MCH 26.4 25.7 - 32.2 pg 01/27/2020 11:03 AM [facility] MCHC 31.3(L) 32.3 - 36.5 g/dL 01/27/2020 11:03 AM [facility] RDW 15.5(H) 11.0 - 14.5 % 01/27/2020 11:03 AM [facility] RDW-STDEV 46.9 36.9 - 56.9 fL 01/27/2020 11:03 AM [facility] PLATELETS 293 130 - 400 K/uL 01/27/2020 11:03 AM [facility] MPV 9.0(L) 10.0 - 14.8 fL 01/27/2020 11:03 AM [facility] NEUTROPHILS 69(H) 34 - 68 % 01/27/2020 11:03 AM [facility] LYMPHOCYTES 19(L) 22 - 53 % 01/27/2020 11:03 AM [facility] MONOCYTES 9 5 - 12 % 01/27/2020 11:03 AM [facility] EOSINOPHILS 2 1 - 7 % 01/27/2020 11:03 AM [facility] BASOPHILS 0 0 - 1 % 01/27/2020 11:03 AM [facility] IMMATURE GRANULOCYTES 1 % 01/27/2020 11:03 AM [facility] NEUTROPHIL ABSOLUTE 6.66(H) 1.78 - 5.38 K/uL 01/27/2020 11:03 AM [facility] LYMPHOCYTE ABSOLUTE 1.80 1.20 - 3.40 K/uL 01/27/2020 11:03 AM [facility] MONOCYTE ABSOLUTE 0.91(H) 0.30 - 0.82 K/uL 01/27/2020 11:03 AM [facility] EOSINOPHIL ABSOLUTE 0.23 0.04 - 0.54 K/uL 01/27/2020 11:03 AM [facility] BASOPHILS ABSOLUTE 0.04 0.01 - 0.08 K/uL 01/27/2020 11:03 AM [facility] IMMATURE GRANULOCYTES ABSOLUTE 0.07 K/uL 01/27/2020 11:03 AM CDT [facility] Blood 01/27/2020 10:3 3 AM CDT 01/27/2020 10:59 AM CDT us Panda Trevino MD HEMATOLOGY ORDERABLES Fin al Result [facility] CLIA # [id number] [address] [address] documented in this encounter Visit Diagnoses Not on filedocumented in this encounter Care Teams Director Enterprise Systems Relationship Specialty Start Date End Date Panda Trevino MD [address] [phone] PCP - General Family Practice 01/26/18 documented as of this encounter
--- OUTSIDE RECORDS SUMMARY | 2025-06-18 13:24 | XMS_ITS | Encounter Summary ---
Author Organization [facility] Address [address] [place] [address] Care Team Providers Care Molder Offbearer Name Role Phone Panda Trevino MD Primary Care Provider +1 [phone] Encounter Details Date Type Department Care Team (Late st Contact Info) Description 09/20/2019 Lab Requisition [facility] Laboratory Services [address] [place] [address] [place] [address] Panda Trevino MD [address] [place] [address] Abnormal finding of blood chemistry, unspecified Social History Tobacco Use Types Packs/Day Years Used Date Smoking Tobacco: Never Smokeless Tobacco: Current Comments:one can per week x 20 Alcohol Use Standard Drinks/Week Comments No 0 (1 standard drink = 0.6 oz pur e alcohol) Sex and Gender Information Value Date Recorded Sex Assigned at Not on file 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 Gender Identity Not on file Sexual Orientation Not on file documented as of this encounter Plan of Treatment Not on file documented as of this encounter Procedures Procedure Name Priority Date/Time Associated Diagnosis Comments C-REACTIVE PROTEIN Stat 09/20/2019 7: 15 AM CDT Abnormal finding of blood chemistry, unspecified documented in this encounter Results * (ABNORMAL) C-REACTIVE PROTEIN (09/20/2019 7:15 AM CDT) CRP 13.6(H) 0.0 - 5.0 mg/L 09/20/2019 1:15 PM CDT [facility] Blood Collection / Unknown 09/20/2019 7:15 AM CDT 09/20/2019 1:00 PM CDT Panda Trevino MD CHEMISTRY ORDERABLES Barbara dick Result [facility] [employer] [facility] CLIA# [id number] [address] [place] [address] documented in this encounter Visit Diagnoses Diagnosis Abnormal finding of blood chemistry, unspecified documented in this encounter Care Teams Molder Offbearer Relationship Specialty Start Date End Date Panda Trevino MD [address] [phone] PCP - General Family Practice 01/26/18 documented as of this encounter
--- OUTSIDE RECORDS SUMMARY | 2025-06-18 13:24 | XMS_ITS | Encounter Summary ---
Author Organization [facility] Address [address] [place] [address] Care Team Providers Care Metal Molder Name Role Phone Panda Trevino MD Primary Care Provider +1 [phone] Encounter Details Date Type Department Care Team (Late st Contact Info) Description 11/12/2019 Lab Requisition [facility] Laboratory Services [address] [place] [address] [place] [address] Panda Trevino MD [address] [place] [address] Social History Tobacco Use Types Packs/Day Years Used Date Smoking Tobacco: Never Smokeless Tobacco: Current Comments:one can per week x 20 Alcohol Use Standard Drinks/Week Comments No 0 (1 standard drink = 0.6 oz pur e alcohol) Sex and Gender Information Value Date Recorded Sex Assigned at Not on file 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 Gender Identity Not on file Sexual Orientation Not on file documented as of this encounter Plan of Treatment Not on file documented as of this encounter Procedures Procedure Name Priority Date/Time Associated Diagnosis Comments C-REACTIVE PROTEIN Stat 11/12/2019 7: 52 AM CDT documented in this encounter Results * (ABNORMAL) C-REACTIVE PROTEIN (11/12/2019 7:52 AM CDT) CRP 104.6(H) 0.0 - 5.0 mg/L 11/12/2019 5:28 PM CDT [facility] [employer] [facility] Blood Collection / Unknown 11/12/2019 7:52 AM CDT 11/12/2019 5:10 PM CDT Panda Trevino MD CHEMISTRY ORDERABLES Barbara dick Result [facility] LABORATORY SERVICES [facility]# [id number] [facility] [place] [address] documented in this encounter Visit Diagnoses Not on filedocumented in this encounter Care Teams Metal Molder Relationship Specialty Start Date End Date Panda Trevino MD [address] [phone] PCP - General Family Practice 01/26/18 documented as of this encounter
--- OUTSIDE RECORDS SUMMARY | 2025-06-18 13:24 | XMS_ITS | Encounter Summary ---
Author Organization [facility] Address [address] [place] [address] Care Team Providers Care Occupational Therapy Aide Name Role Phone Panda Trevino MD Primary Care Provider +1 [phone] Encounter Details Date Type Department Care Team (Late st Contact Info) Description 12/25/2019 Lab Requisition [facility] Laboratory Services [address] [place] [address] [place] [address] Panda Trevino MD [address] [place] [address] Social History Tobacco Use Types Packs/Day Years Used Date Smoking Tobacco: Never Smokeless Tobacco: Current Comments:one can per week x 20 Alcohol Use Standard Drinks/Week Comments No 0 (1 standard drink = 0.6 oz pur e alcohol) Sex and Gender Information Value Date Recorded Sex Assigned at Not on file 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 [employer] [facility] Blood Collection / Unknown 12/25/2019 5:28 AM CDT 12/25/2019 3:13 PM CDT Panda Trevino MD CHEMISTRY ORDERABLES Barbara l Result Performing Organization Address City/[facility]/ZIP Co de Phone Number [facility] CLIA# [id number] [address] [place], [place] [address] * (ABNORMAL) C-REACTIVE PROTEIN (12/25/2019 5:28 AM CDT) CRP 44.7(H) 0.0 - 5.0 mg/L 12/25/2019 3:29 PM CDT [facility] Blood Collection / Unknown 12/25/2019 5:28 AM CDT 12/25/2019 3:13 PM CDT Panda Trevino MD CHEMISTRY ORDERABLES Barbara l Result Performing Organization Address City/[facility] Co de Phone Number [facility] CLIA# [id number] [address] [place], [place] [address] documented in this encounter Visit Diagnoses Not on filedocumented in this encounter Care Teams Occupational Therapy Aide Relationship Specialty Start Date End Date Panda Trevino MD [address] [facility] [address] [place] [phone] PCP - General Family Practice 01/26/18 documented as of this encounter
--- OUTSIDE RECORDS SUMMARY | 2025-06-18 13:24 | XMS_ITS | Encounter Summary ---
Author Organization [facility] Address [address] [place] [address] Care Team Providers Care Machine Stonecutter Name Role Phone Panda Trevino MD Primary Care Provider [phone] [phone] Encounter Details Date Type Department Care Team (Late st Contact Info) Description 12/06/2019 Lab Requisition [facility] Laboratory Services [address] [place] [address] [place] [address] Panda Trevino MD [address] [place] [address] Social History Tobacco Use Types Packs/Day Years Used Date Smoking Tobacco: Never Smokeless Tobacco: Current Comments:one can per week x 20 Alcohol Use Standard Drinks/Week Comments No 0 (1 standard drink = 0.6 oz pur e alcohol) Sex and Gender Information Value Date Recorded Sex Assigned at Not on file 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 Gender Identity Not on file Sexual [...] Date/Time Associated Diagnosis Comments C-REACTIVE PROTEIN Stat 12/06/2019 7: 12 AM CDT documented in this encounter Results * (ABNORMAL) C-REACTIVE PROTEIN (12/06/2019 7:12 AM CDT) CRP 118.1(H) 0.0 - 5.0 mg/L 12/06/2019 2:58 PM CDT [facility] [employer] [facility] Blood Collection / Unknown 12/06/2019 7:12 AM CDT 12/06/2019 2:44 PM CDT us Panda Trevino MD CHEMISTRY ORDERABLES Barbara l Result [facility] [employer] [facility] CLIA# [id number] [address] [place] [address] documented in this encounter Visit Diagnoses Not on filedocumented in this encounter Care Teams Machine Stonecutter Relationship Specialty Start Date End Date Panda Trevino MD [address] [facility] [address] [place] [phone] PCP - General Family Practice 01/26/18 documented as of this encounter
--- OUTSIDE RECORDS SUMMARY | 2025-06-18 13:25 | XMS_ITS | Encounter Summary ---
Author Organization [facility] Address [address] [place] [address] Care Team Providers Care Produce Team Lead Name Role Phone Panda Trevino MD Primary Care Provider [phone] [phone] Encounter Details Date Type Department Care Team (Late st Contact Info) Description 04/10/2020 Lab Requisition [facility] Laboratory Services [address] [place] [address] Panda Trevino MD [address] [place] [address] Social History Tobacco Use Types Packs/Day Years Used Date Smoking Tobacco: Never Smokeless Tobacco: Current Comments:one can per week x 20 Alcohol Use Standard Drinks/Week Comments No 0 (1 standard drink = 0.6 oz pur e alcohol) Sex and Gender Information Value Date Recorded Sex Assigned at Not on file Legal Sex Male 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 No / Unsure 03/11/2020 12:53 PM CDT documented as of this encounter Plan of Treatment Not on file documented as of this encounter Procedures Procedure Name Priority Date/Time Associated Diagnosis Comments WOUND CULTURE WITH GRAM STAIN Routine 04/10/2020 7:18 AM CDT documented in this encounter Results * (ABNORMAL) WOUND (AEROBIC) CULTURE WITH GRAM STAIN (04/10/2020 7:18 AM CDT) CULTURE PROTEUS MIRABILIS(A) HUMERA MCG/ML 04/13/2020 11:16 AM CDT [facility] CULTURE STAPHYLOCOCCUS AUREUS(A) HUMERA MCG/ML 04/13/2020 11:16 AM CDT [facility] Comment:Other - For suscepti bility, refer to other wound culture. GRAM STAIN 1+ (Rare or Occasional) Gram positive cocci 04/13/2020 11:16 AM T [facility] GRAM STAIN 1+ (Rare or Occasional) Gram negative rods 04/13/2020 11:16 AM T [facility] GRAM STAIN 1+ (Rare or Occasional) Gram positive rods 04/13/2020 11:16 AM T [facility] GRAM STAIN 1+ (Rare or Occasional) Polymorphonuclear WBC 04/13/2020 11:16 AM T [facility] Wound [place] / Unknown Collection / Unknown 04/10/2020 7:18 AM CDT 04/10/2020 4:43 PM CDT Narrative [facility] - 04/13/2020 11:16 AM CDT Gram positive rods observed on direct gram stain not recovered on aerobic culture. If clinically warranted, suggest submitting culture for anaerobes. Organism Antibiotic Method Susceptibility Proteus mirabilis AMOXICILLIN/ CLAVULANATE HUMERA MCG/ML 16 mcg/mL: Intermediate Proteus mirabilis AMPICILLIN/ SULBACTAM HUMERA MCG/ML >=32 mcg/mL: Resistant Proteus mirabilis AMPICILLIN HUMERA MCG/ML >=32 mcg/mL: Resistant Proteus mirabilis CEFAZOLIN HUMERA MCG/ML >=64 mcg/mL: Resistant Proteus mirabilis CEFEPIME HUMERA MCG/ML 4 mcg/mL: Susceptible Proteus mirabilis CEFTRIAXONE HUMERA MCG/ML >=64 mcg/mL: Resistant Proteus mirabilis CIPROFLOXACIN HUMERA MCG/ML >=4 mcg/mL: Resistant Proteus mirabilis GENTAMICIN HUMERA MCG/ML <=1 mcg/mL: Susceptible Proteus mirabilis LEVOFLOXACIN HUMERA MCG/ML 4 mcg/mL: Intermediate Proteus mirabilis PIPERACILLIN/ TAZOBACTAM HUMERA MCG/ML <=4 mcg/mL: Susceptible Proteus mirabilis TOBRAMYCIN HUMERA MCG/ML <=1 mcg/mL: Susceptible Proteus mirabilis TRIMETHOPRIM/ SULFAMETHOXAZOLE HUMERA M CG/ML >=320 mcg/mL: Resistant Panda Trevino MD MICROBIOLOGY - GENERAL OR DERABLES Final Result [facility] [address] [address] documented in this encounter Visit Diagnoses Not on filedocumented in this encounter Care Teams Produce Team Lead Relationship Specialty Start Date End Date Panda Trevino MD [address] [phone] PCP - General Family Practice 01/26/18 documented as of this encounter
--- OUTSIDE RECORDS SUMMARY | 2025-06-18 13:25 | XMS_ITS | Encounter Summary ---
Author Organization [facility] Address [address] [place] [address] Care Team Providers Care Dredge Pumper Name Role Phone Panda Trevino MD Primary Care Provider [phone] [phone] Reason for Referral * CT Scan (Routine) - Closed Specialty Diagnoses / Procedures Referred By Contac t Referred To Contact Radiology Diagnoses Acute bone infection (CMS/HCC) Procedures CT BIOPSY BONE Panda Trevino MD [address] [address] Phone: tel: fax: [facility] CT Scan [address] [place] [address] Phone: tel: fax: Referral ID Status Reason Start Date Expiration Date V isits Requested Visits Authorized [id number] Closed [facility] TO SCHEDULE (SGF) 01/21/2020 02/20/2021 1 1 Encounter Details Date Type Department Care Team (Latest Contact Info) Description 01/21/2020 Ancillary Orders 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 Exam: CT BIOPSY [id number] lower sacral/coccyx bone biopsy. Date/Time of Exam: 01/31/2020 1:53 PM Reason For Exam: The patient is a 64-year-old quadriplegic male with findings on an MRI of 12/07/2019 suspicious for osteomyelitis of the lower sacrum and/or coccyx. Biopsy has been requested. Diagnosis: Acute bone infection. Technique: Axial CT imaging and CT fluoroscopy were utilized for localization and procedure guidance. Contrast: None. Findings: Comparison is made to the MRI of 12/07/2019. The procedure and its risks, benefits and alternatives were explained to the patient. Consent to proceed was obtained. Note that the patient has no sensation below his chest. IV Versed was administered. No fentanyl was given. The patient was placed in a left lateral decubitus position on the CT scan table. Preliminary images were obtained for localization. An appropriate approach for biopsy of the lower sacrum/upper coccyx at the site of the decubitus ulcer that corresponds to the abnormality on MRI was identified. The skin was marked. The area was prepped and draped in the usual fashion. Utilizing CT fluoroscopy, the 11-gauge introducer was advanced to the posterolateral cortex of the affected bone. Utilizing the power dedicated regional driver, the introducer was advanced through the cortex. Appropriate positioning was confirmed with CT fluoroscopy. A pass was made with the 13-gauge bone biopsy needle utilizing the power dedicated regional driver. A core was obtained and was divided between pathology and microbiology. The introducer was angled somewhat differently and a second pass was made with the 13-gauge bone biopsy needle. A second core was obtained and was divided between pathology and microbiology. The introducer was removed. A sterile Band-Aid was applied. The patient tolerated the procedure well. There were no immediate postprocedure complications. Estimated blood loss was minimal. IMPRESSION: CT-guided lower sacral/upper coccyx bone biopsy as described. [id number] Narrative Procedure Note Pia Narvaez MD - 01/31/2020 IMPRESSION: Please see below. Exam: CT BIOPSY [id number] lower sacral/coccyx bone biopsy. Date/Time of Exam: 01/31/2020 1:53 PM Reason For Exam: The patient is a 64-year-old quadriplegic male with findings on an MRI of 12/07/2019 suspicious for osteomyelitis of the lower sacrum and/or coccyx. Biopsy has been requested. Diagnosis: Acute bone infection. Technique: Axial CT imaging and CT fluoroscopy were utilized for localization and procedure guidance. Contrast: None. Findings: Comparison is made to the MRI of 12/07/2019. The procedure and its risks, benefits and alternatives were explained to the patient. Consent to proceed was obtained. Note that the patient has no sensation below his chest. IV Versed was administered. No fentanyl was given. The patient was placed in a left lateral decubitus position on the CT scan table. Preliminary images were obtained for localization. An appropriate approach for biopsy of the lower sacrum/upper coccyx at the site of the decubitus ulcer that corresponds to the abnormality on MRI was identified. The skin was marked. The area was prepped and draped in the usual fashion. Utilizing CT fluoroscopy, the 11-gauge introducer was advanced to the posterolateral cortex of the affected bone. Utilizing the power dedicated regional driver, the introducer was advanced through the cortex. Appropriate positioning was confirmed with CT fluoroscopy. A pass was made with the 13-gauge bone biopsy needle utilizing the power dedicated regional driver. A core was obtained and was divided between pathology and microbiology. The introducer was angled somewhat differently and a second pass was made with the 13-gauge bone biopsy needle. A second core was obtained and was divided between pathology and microbiology. The introducer was removed. A sterile Band-Aid was applied. The patient tolerated the procedure well. There were no immediate postprocedure complications. Estimated blood loss was minimal. IMPRESSION: CT-guided lower sacral/upper coccyx bone biopsy as described. [id number] ORDERABLES Final Res ult documented in this encounter Visit Diagnoses Diagnosis Acute bone infection (CMS/HCC) Acute osteomyelitis, site unspecified Acute bone infection (CMS/HCC) Acute osteomyelitis, site unspecified documented in this encounter Care Teams Dredge Pumper Relationship Specialty Start Date End Date Panda Trevino MD [address] [address] PCP - General Family Practice 01/26/18 documented as of this encounter
--- OUTSIDE RECORDS SUMMARY | 2025-06-18 13:25 | XMS_ITS | Encounter Summary ---
Author Organization [facility] Address [address] [place] [address] Care Team Providers Care Cook Helper Name Role Phone Panda Trevino MD Primary Care Provider [phone] [phone] Encounter Details Date Type Department Care Team (Late st Contact Info) Description 04/21/2020 Lab Requisition [facility] Laboratory Services [address] [place] [address] Panda Trevino MD [address] [place] [address] Social History Tobacco Use Types Packs/Day Years Used Date Smoking Tobacco: Never Smokeless Tobacco: Current Comments:one can per week x 20 Alcohol Use Standard Drinks/Week Comments No 0 (1 standard drink = 0.6 oz pur e alcohol) Sex and Gender Information Value Date Recorded Sex Assigned at Not on file 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 Gender Identity Not on file Sexual Orientation Not on file documented as of this encounter Plan of Treatment Not on file documented as of this encounter Procedures Procedure Name Priority Date/Time Associated Diagnosis Comments C-REACTIVE PROTEIN Routine 04/21/2020 7: 48 AM CDT documented in this encounter Results * (ABNORMAL) C-REACTIVE PROTEIN (04/21/2020 7:48 AM CDT) CRP 17.2(H) 0.0 - 5.0 mg/L 04/21/2020 2:17 PM CDT [facility] [employer] [facility] Blood 04/21/2020 7:48 AM CDT 04/21/2020 1:57 PM CDT Panda Trevino MD CHEMISTRY ORDERABLES Barbara dick Result Performing Organization Address City/State/[facility] Co de Phone Number [facility] [id number] [place] [address] documented in this encounter Visit Diagnoses Not on filedocumented in this encounter Care Teams Cook Helper Relationship Specialty Start Date End Date Panda Trevino MD [address] [facility] [address] [place] [address] PCP - General Family Practice 01/26/18 documented as of this encounter
--- OUTSIDE RECORDS SUMMARY | 2025-06-18 13:25 | XMS_ITS | Encounter Summary ---
Author Organization [facility] Address [address] [place] [address] Care Team Providers Care Occupational Hygienist Name Role Phone Panda Trevino MD Primary Care Provider [phone] [phone] Encounter Details Date Type Department Care Team (Late st Contact Info) Description 01/12/2020 Lab Requisition [facility] Laboratory Services [place] [address] [address] Panda Trevino MD [address] [place] [address] Social History Tobacco Use Types Packs/Day Years Used Date Smoking Tobacco: Never Smokeless Tobacco: Current Comments:one can per week x 20 Alcohol Use Standard Drinks/Week Comments No 0 (1 standard drink = 0.6 oz pur e alcohol) Sex and Gender Information Value Date Recorded Sex Assigned at Not on file 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 Gender Identity Not on file Sexual Orientation Not on file documented as of this encounter Plan of Treatment Not on file documented as of this encounter Procedures Procedure Name Priority Date/Time Associated Diagnosis Comments CBC WITH DIFFERENTIAL Routine 01/12/2020 11:15 AM CDT C-REACTIVE PROTEIN Routine 01/12/2020 11 :15 AM CDT CK Routine 01/12/2020 11:15 AM CDT documented in this encounter Results * (ABNORMAL) CBC WITH DIFFERENTIAL (01/12/2020 11:15 AM CDT) WBC 12.0(H) 4.2 - 9.1 K/uL 01/12/2020 12:29 PM [facility] RBC 4.04(L) 4.63 - 6.08 M/uL 01/12/2020 12:29 PM [facility] HEMOGLOBIN 10.5(L) 13.7 - 17.5 g/dL 01/12/2020 12:29 PM [facility] HEMATOCRIT 33.6(L) 40.1 - 51.0 % 01/12/2020 12:29 PM [facility] MCV 83.2 79.0 - 92.2 fL 01/12/2020 12:29 PM [facility] MCH 26.0 25.7 - 32.2 pg 01/12/2020 12:29 PM [facility] MCHC 31.3(L) 32.3 - 36.5 g/dL 01/12/2020 12:29 PM [facility] RDW 14.9(H) 11.0 - 14.5 % 01/12/2020 12:29 PM [facility] RDW-STDEV 45.1 36.9 - 56.9 fL 01/12/2020 12:29 PM [facility] PLATELETS 404(H) 130 - 400 K/uL 01/12/2020 12:29 PM [facility] MPV 8.4(L) 10.0 - 14.8 fL 01/12/2020 12:29 PM [facility] NEUTROPHILS 72(H) 34 - 68 % 01/12/2020 12:29 PM [facility] LYMPHOCYTES 16(L) 22 - 53 % 01/12/2020 12:29 PM [facility] MONOCYTES 8 5 - 12 % 01/12/2020 12:29 PM [facility] EOSINOPHILS 2 1 - 7 % 01/12/2020 12:29 PM [facility] BASOPHILS 0 0 - 1 % 01/12/2020 12:29 PM [facility] IMMATURE GRANULOCYTES 2 % 01/12/2020 12:29 PM [facility] NEUTROPHIL ABSOLUTE 8.68(H) 1.78 - 5.38 K/uL 01/12/2020 12:29 PM CDT [facility] LYMPHOCYTE ABSOLUTE 1.86 1.20 - 3.40 K/uL 01/12/2020 12:29 PM CDT [facility] MONOCYTE ABSOLUTE 1.01(H) 0.30 - 0.82 K/uL 01/12/2020 12:29 PM CDT [facility] EOSINOPHIL ABSOLUTE 0.23 0.04 - 0.54 K/uL 01/12/2020 12:29 PM CDT [facility] BASOPHILS ABSOLUTE 0.05 0.01 - 0.08 K/uL 01/12/2020 12:29 PM CDT [facility] IMMATURE GRANULOCYTES ABSOLUTE 0.19 K/uL 01/12/2020 12:29 PM [facility] Blood 01/12/2020 11:1 5 AM CDT 01/12/2020 11:55 AM CDT us Panda Trevino MD HEMATOLOGY ORDERABLES Fin al Result Performing Organization Address [facility] Co de Phone Number [facility] CLIA # [id number] [address] [place] [address] * (ABNORMAL) C-REACTIVE PROTEIN (01/12/2020 11:15 AM CDT) CRP 50.0(H) <5.0 mg/L 01/12/2020 12:34 PM CDT [facility] Blood 01/12/2020 11:1 5 AM CDT 01/12/2020 11:55 AM CDT us Panda Trevino MD CHEMISTRY ORDERABLES Barbara l Result Performing Organization Address City/[facility]/ZIP Co de Phone Number [facility] CLIA # [id number] [address] [place] [address] * (ABNORMAL) CK (01/12/2020 11:15 AM CDT) CK 437(H) 39 - 308 U/L 01/12/2020 12:34 PM CDT [facility] Blood 01/12/2020 11:1 5 AM CDT 01/12/2020 11:55 AM CDT Panda Trevino MD CHEMISTRY ORDERABLES Barbara dick Result [facility] CLIA # [id number] [address] [address] documented in this encounter Visit Diagnoses Not on filedocumented in this encounter Care Teams Occupational Hygienist Relationship Specialty Start Date End Date Panda Trevino MD [address] [phone] PCP - General Family Practice 01/26/18 documented as of this encounter
--- OUTSIDE RECORDS SUMMARY | 2025-06-18 13:25 | XMS_ITS | Encounter Summary ---
Author Organization [facility] Address [address] [place] [address] Care Team Providers Care Retail Account Manager Name Role Phone Panda Trevino MD Primary Care Provider [phone] [phone] Encounter Details Date Type Department Care Team (Late st Contact Info) Description 02/25/2020 Lab Requisition [facility] Laboratory Services [address] [place] [address] Panda Trevino MD [address] [place] [address] Social History Tobacco Use Types Packs/Day Years Used Date Smoking Tobacco: Never Smokeless Tobacco: Current Comments:one can per week x 20 Alcohol Use Standard Drinks/Week Comments No 0 (1 standard drink = 0.6 oz pur e alcohol) Sex and Gender Information Value Date Recorded Sex Assigned at Not on file 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 No / Unsure 02/08/2020 12:33 PM CDT documented as of this encounter Plan of Treatment Not on file documented as of this encounter Procedures Procedure Name Priority Date/Time Associated Diagnosis Comments C-REACTIVE PROTEIN Routine 02/25/2020 3: 10 AM CDT documented in this encounter Results * (ABNORMAL) C-REACTIVE PROTEIN (02/25/2020 3:10 AM CDT) CRP 15.5(H) 0.0 - 5.0 mg/L 02/25/2020 4:45 PM CDT [facility] [employer] [facility] Blood Collection / Unknown 02/25/2020 3:10 AM CDT 02/25/2020 4:23 PM CDT us Panda Trevino MD CHEMISTRY ORDERABLES Barbara l Result [facility] [address] [place] [address] documented in this encounter Visit Diagnoses Not on filedocumented in this encounter Care Teams Retail Account Manager Relationship Specialty Start Date End Date Panda Trevino MD [address] [phone] PCP - General Family Practice 01/26/18 documented as of this encounter
--- OUTSIDE RECORDS SUMMARY | 2025-06-18 13:25 | XMS_ITS | Encounter Summary ---
Author Organization [facility] Address [address] [place] [address] Care Team Providers Care Chief Operator Name Role Phone Panda Trevino MD Primary Care Provider [phone] [phone] Encounter Details Date Type Department Care Team (Late st Contact Info) Description 03/31/2020 Lab Requisition [facility] Laboratory Services [address] [place] [address] Panda Trevino MD [address] [place] [address] Social History Tobacco Use Types Packs/Day Years Used Date Smoking Tobacco: Never Smokeless Tobacco: Current Comments:one can per week x 20 Alcohol Use Standard Drinks/Week Comments No 0 (1 standard drink = 0.6 oz pur e alcohol) Sex and Gender Information Value Date Recorded Sex Assigned at Not on file 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 Gender Identity Not on file Sexual Orientation [...] Date/Time Associated Diagnosis Comments C-REACTIVE PROTEIN Routine 03/31/2020 7: 22 AM CDT documented in this encounter Results * (ABNORMAL) C-REACTIVE PROTEIN (03/31/2020 7:22 AM CDT) CRP 18.3(H) 0.0 - 5.0 mg/L 03/31/2020 4:14 PM CDT [facility] [employer] [facility] Blood Collection / Unknown 03/31/2020 7:22 AM CDT 03/31/2020 3:54 PM CDT us Panda Trevino MD CHEMISTRY ORDERABLES Barbara l Result [facility] [employer] [facility] [address] [place] [address] documented in this encounter Visit Diagnoses Not on filedocumented in this encounter Care Teams Chief Operator Relationship Specialty Start Date End Date Panda Trevino MD [address] [phone] PCP - General Family Practice 01/26/18 documented as of this encounter
--- OUTSIDE RECORDS SUMMARY | 2025-06-18 13:25 | XMS_ITS | Encounter Summary ---
Author Organization [facility] Address [address] [place] [address] Care Team Providers Care Foreman Or Supervisor And Operator Name Role Phone Panda Trevino MD Primary Care Provider +1 [phone] Encounter Details Date Type Department Care Team (Late st Contact Info) Description 03/06/2020 Lab Requisition [facility] Laboratory Services [address] [place] [address] Panda Trevino MD [address] [place] [address] Social History Tobacco Use Types Packs/Day Years Used Date Smoking Tobacco: Never Smokeless Tobacco: Current Comments:one can per week x 20 Alcohol Use Standard Drinks/Week Comments No 0 (1 standard drink = 0.6 oz pur e alcohol) Sex and Gender Information Value Date Recorded Sex Assigned at Not on file 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 Gender Identity Not on file Sexual Orientation [...] Comments WOUND CULTURE WITH GRAM STAIN Routine 03/06/2020 7:05 AM CDT documented in this encounter Results * (ABNORMAL) WOUND (AEROBIC) CULTURE WITH GRAM STAIN (03/06/2020 7:05 AM CDT) Pathologist [facility] CULTURE ESCHERICHIA COLI(A) HUMERA MCG/ML 03/09/2020 7:14 AM CDT [facility] CULTURE PROTEUS MIRABILIS(A) HUMERA MCG/ML 03/09/2020 7:14 AM CDT [facility] CULTURE ACINETOBACTER CALCOACETICUS-ACINET OBACTER BAUMANNII COMPLEX(A) HUMERA MCG/ML 03/09/2020 7:14 AM CDT [facility] GRAM STAIN 4+ (Heavy) Gram positive cocci 03/09/2020 7:14 AM CDT [facility] GRAM STAIN 1+ (Rare or Occasional) Gram positive rods 03/09/2020 7:14 AM T [facility] GRAM STAIN 2+ (Few) Polymorphonuclear WBC 03/09/2020 7:14 AM T [facility] Wound ENT[place] / Unknown Collection / Unknown 03/06/2020 7:05 AM CDT 03/06/2020 12:42 PM CDT Narrative [facility] - 03/09/2020 7:14 AM CDT Unable to isolate Gram positive cocci due to heavy overgrowth of swarming Proteus species. Organism Antibiotic Method Susceptibility Escherichia coli AMOXICILLIN/ CLAVULANATE HUMERA MCG/ML 4 mcg/mL: Susceptible Escherichia coli AMPICILLIN/ SULBACTAM HUMERA MCG/ML >=32 mcg/mL: Resistant Escherichia coli AMPICILLIN HUMERA MCG/ML >=32 mcg/mL: Resistant Escherichia coli CEFAZOLIN HUMERA MCG/ML >=64 mcg/mL: Resistant Escherichia coli CEFEPIME HUMERA MCG/ML 2 mcg/mL: Susceptible Escherichia coli CEFTRIAXONE [place]UMERA MCG/ML >=64 mcg/mL: Resistant Escherichia coli CIPROFLOXACIN HUMERA MCG/ML >=4 mcg/mL: Resistant Escherichia coli GENTAMICIN HUMERA MCG/ML <=1 mcg/mL: Susceptible Escherichia coli LEVOFLOXACIN HUMERA MCG/ML >=8 mcg/mL: Resistant Escherichia coli PIPERACILLIN/ TAZOBACTAM HUMERA MCG/ML <=4 mcg/mL: Susceptible Escherichia coli TOBRAMYCIN HUMERA MCG/ML <=1 mcg/mL: Susceptible Escherichia coli TRIMETHOPRIM/ SULFAMETHOXAZOLE HUMERA MCG/ML >=320 mcg/mL: Resistant Proteus mirabilis AMOXICILLIN/ CLAVULANATE HUMERA MCG/ML 16 mcg/mL: Intermediate Proteus mirabilis AMPICILLIN/ SULBACTAM HUMERA MCG/ML >=32 mcg/mL: Resistant Proteus mirabilis AMPICILLIN HUMERA MCG/ML >=32 mcg/mL: Resistant Proteus mirabilis CEFAZOLIN HUMERA MCG/ML >=64 mcg/mL: Resistant Proteus mirabilis CEFEPIME HUMERA MCG/ML 32 mcg/mL: Resistant Proteus mirabilis CEFTRIAXONE HUMERA MCG/ML >=64 mcg/mL: Resistant Proteus mirabilis CIPROFLOXACIN HUMERA MCG/ML >=4 mcg/mL: Resistant Proteus mirabilis ERTAPENEM HUMERA MCG/ML <=0.5 mcg/mL: Susceptible Proteus mirabilis GENTAMICIN HUMERA MCG/ML <=1 mcg/mL: Susceptible Proteus mirabilis LEVOFLOXACIN HUMERA MCG/ML 4 mcg/mL: Intermediate Proteus mirabilis PIPERACILLIN/ TAZOBACTAM HUMERA MCG/ML <=4 mcg/mL: Susceptible Proteus mirabilis TOBRAMYCIN HUMERA MCG/ML <=1 mcg/mL: Susceptible Proteus mirabilis TRIMETHOPRIM/ SULFAMETHOXAZOLE HUMERA MCG/ML 40 mcg/mL: Susceptible Acinetobacter baumannii complex AMPICILLIN/ SULBACTAM HUMERA MCG/ML <=2 mcg/mL: Susceptible Acinetobacter baumannii complex CEFEPIME HUMERA MCG/ML 4 mcg/mL: Susceptible Acinetobacter baumannii complex CIPROFLOXACIN HUMERA MCG/ML >=4 mcg/mL: Resistant Acinetobacter baumannii complex GENTAMICIN HUMERA MCG/ML <=1 mcg/mL: Susceptible Acinetobacter baumannii complex LEVOFLOXACIN HUMERA MCG/ML 4 mcg/mL: Intermediate Acinetobacter baumannii complex PIPERACILLIN/ TAZOBACTAM HUMERA MCG/ML <=4 mcg/mL: Susceptible Acinetobacter baumannii complex TOBRAMYCIN HUMERA MCG/ML <=1 mcg/mL: Susceptible Acinetobacter baumannii complex TRIMETHOPRIM/ SULFAMETHOXAZOLE HUMERA MCG/ML <=20 mcg/mL: Susceptible Panda Trevino MD MICROBIOLOGY - GENERAL OR DERABLES Final Result Performing Organization Address City/State/[facility] Co de Phone Number [id number] [place] [address] documented in this encounter Visit Diagnoses Not on filedocumented in this encounter Care Teams Foreman Or Supervisor And Operator Relationship Specialty Start Date End Date Panda Trevino MD [address] [phone] PCP - General Family Practice 01/26/18 documented as of this encounter
--- OUTSIDE RECORDS SUMMARY | 2025-06-18 13:25 | XMS_ITS | Encounter Summary ---
Author Organization [facility] Address [address] [place] [address] Care Team Providers Care Transmitter Tester Name Role Phone Panda Trevino MD Primary Care Provider [phone] [phone] Encounter Details Date Type Department Care Team (Late st Contact Info) Description 08/17/[address] [facility] Laboratory Services [place] [address] [address] Panda Trevino MD [address] [place] [phone] Social History Tobacco Use Types Packs/Day Years Used Date Smoking Tobacco: Never Smokeless Tobacco: Current Comments:one can per week x 20 Alcohol Use Standard Drinks/Week Comments No 0 (1 standard drink = 0.6 oz pur e alcohol) Sex and Gender Information Value Date Recorded Sex Assigned at Not on file Legal Sex Male 3:48 AM SEWER AND INSPECTOR Gender Identity Not on file Sexual Orientation Not on file documented as of this encounter Plan of Treatment Not on file documented as of this encounter Procedures Procedure Name Priority Date/Time Associated Diagnosis Comments WOUND CULTURE WITH GRAM STAIN Routine 08/17/2020 1:30 PM SEWER AND INSPECTOR CBC WITH DIFFERENTIAL Routine 08/17/2020 1:00 PM SEWER AND INSPECTOR C-REACTIVE PROTEIN Stat 08/17/2020 1: 00 PM SEWER AND INSPECTOR BASIC METABOLIC PANEL Stat 08/17/2020 1:00 PM SEWER AND INSPECTOR documented in this encounter Results * (ABNORMAL) WOUND (AEROBIC) CULTURE WITH GRAM STAIN (08/17/2020 1:30 PM SEWER AND INSPECTOR) CULTURE PROTEUS MIRABILIS(A) HUMERA MCG/ML 08/21/2020 8:22 AM SEWER AND INSPECTOR [facility] CULTURE STAPHYLOCOCCUS AUREUS(A) HUMERA MCG/ML 08/21/2020 8:22 AM SEWER AND INSPECTOR [facility] CULTURE ENTEROCOCCUS FAECALIS(A) HUMERA MCG/ML 08/21/2020 8:22 AM SEWER AND INSPECTOR [facility] GRAM STAIN 2+ (Few) Polymorphonuclear WBC 08/21/2020 8:22 AM SEWER AND INSPECTOR [facility] GRAM STAIN 4+ (Heavy) Gram positive cocci 08/21/2020 8:22 AM SEWER AND INSPECTOR [facility] Wound (Hip, left) 08/17/2020 1:30 PM SEWER AND INSPECTOR 08/17/2020 1:32 PM SEWER AND INSPECTOR Narrative Organism Antibiotic Method Susceptibility Proteus mirabilis AMOXICILLIN/ CLAVULANATE HUMERA MCG/ML 8 mcg/mL: Susceptible Proteus mirabilis AMPICILLIN/ SULBACTAM HUMERA MCG/ML >=32 mcg/mL: Resistant Proteus mirabilis AMPICILLIN HUMERA MCG/ML >=32 mcg/mL: Resistant Proteus mirabilis CEFAZOLIN HUMERA MCG/ML 16 mcg/mL: Intermediate Proteus mirabilis CEFEPIME HUMERA MCG/ML <=1 mcg/mL: Susceptible Proteus mirabilis CEFTRIAXONE HUMERA MCG/ML <=1 mcg/mL: Susceptible Proteus mirabilis CIPROFLOXACIN HUMERA MCG/ML 1 mcg/mL: Susceptible Proteus mirabilis GENTAMICIN HUMERA MCG/ML <=1 mcg/mL: Susceptible Proteus mirabilis LEVOFLOXACIN HUMERA MCG/ML 1 mcg/mL: Susceptible Proteus mirabilis PIPERACILLIN/ TAZOBACTAM HUMERA MCG/ML <=4 mcg/mL: Susceptible Proteus mirabilis TOBRAMYCIN HUMERA MCG/ML <=1 mcg/mL: Susceptible Proteus mirabilis TRIMETHOPRIM/ SULFAMETHOXAZOLE HUMERA MCG/ML >=320 mcg/mL: Resistant Staphylococcus aureus CLINDAMYCIN HUMERA MCG/ML 0.25 mcg/mL: Susceptible Staphylococcus aureus ERYTHROMYCIN HUMERA MCG/ML <=0.25 mcg/mL: Susceptible Staphylococcus aureus OXACILLIN (Nafcillin) HUMERA MCG/ML 0.5 mcg/mL: Susceptible Comment:Oxacillin newberry sceptible S.aureus (MSSA) is predictably susceptible to cefazolin and ceftriaxone. Staphylococcus aureus TRIMETHOPRIM/ SULFAMETHOXAZOLE HUMERA MCG/ML <=10 mcg/mL: Susceptible Staphylococcus aureus VANCOMYCIN HUMERA MCG/ML 1 mcg/mL: Susceptible Staphylococcus aureus DOXYCYCLINE HUMERA MCG/ML <=0.5 mcg/mL: Susceptible Enterococcus faecalis VANCOMYCIN HUMERA MCG/ML 1 mcg/mL: Susceptible Enterococcus faecalis AMPICILLIN HUMERA MCG/ML <=2 mcg/mL: Susceptible Panda Trevino MD MICROBIOLOGY - GENERAL OR DERABLES Final Result Performing Organization Address [facility]/ZIP Co de Phone Number [address] [address] * (ABNORMAL) C-REACTIVE PROTEIN (08/17/2020 1:00 PM SEWER AND INSPECTOR) Pathologist [facility] CRP 341.0(H) <5.0 mg/L 08/17/2020 2:01 PM [facility] Blood 08/17/2020 1:00 PM SEWER AND INSPECTOR 08/17/2020 1:32 PM SEWER AND INSPECTOR Panda Trevino MD CHEMISTRY ORDERABLES Barbara l Result [facility] CLIA # [id number] [address] [place] [address] * (ABNORMAL) BASIC METABOLIC PANEL (08/17/2020 1:00 PM SEWER AND INSPECTOR) SODIUM 134(L) 136 - 145 mmol/L 08/17/2020 2:01 PM [facility] POTASSIUM 3.7 3.5 - 5.1 mmol/L 08/17/2020 2:01 PM [facility] CHLORIDE 97(L) 98 - 107 mmol/L 08/17/2020 2:01 PM [facility] CO2 24 22 - 29 mmol/L 08/17/2020 2:01 PM [facility] CALCIUM 8.8 8.8 - 10.2 mg/dL 08/17/2020 2:01 PM [facility] BUN 22 8 - 23 mg/dL 08/17/2020 2:01 PM [facility] CREATININE 0.80 0.67 - 1.17 mg/dL 08/17/2020 2:01 PM [facility] GLUCOSE 117(H) 74 - 99 mg/dL 08/17/2020 2:01 PM [facility] GFR >60 >=60 mL/min/1.7 3 sq meter 08/17/2020 2:01 PM [facility] Comment: eGFR has not been validated for [...] GFR, >60 >=60 mL/min/1.7 3 sq meter 08/17/2020 2:01 PM [facility] ANION GAP 13 12 - 20 mmol/L 08/17/2020 2:01 PM [facility] Blood 08/17/2020 1:00 PM SEWER AND INSPECTOR 08/17/2020 1:32 PM SEWER AND INSPECTOR us Panda Trevino MD CHEMISTRY ORDERABLES Barbara l Result [facility] CLIA # [id number] [address] [place] [address] * (ABNORMAL) CBC WITH DIFFERENTIAL (08/17/2020 1:00 PM SEWER AND INSPECTOR) WBC 18.0(H) 4.2 - 9.1 K/uL 08/17/2020 1:35 PM [facility] RBC 3.82(L) 4.63 - 6.08 M/uL 08/17/2020 1:35 PM [facility] HEMOGLOBIN 10.3(L) 13.7 - 17.5 g/dL 08/17/2020 1:35 PM [facility] HEMATOCRIT 32.3(L) 40.1 - 51.0 % 08/17/2020 1:35 PM [facility] MCV 84.6 79.0 - 92.2 fL 08/17/2020 1:35 PM [facility] MCH 27.0 25.7 - 32.2 pg 08/17/2020 1:35 PM [facility] MCHC 31.9(L) 32.3 - 36.5 g/dL 08/17/2020 1:35 PM [facility] RDW 14.6(H) 11.0 - 14.5 % 08/17/2020 1:35 PM [facility] RDW-STDEV 45.2 36.9 - 56.9 fL 08/17/2020 1:35 PM [facility] PLATELETS 334 130 - 400 K/uL 08/17/2020 1:35 PM [facility] MPV 9.1(L) 10.0 - 14.8 fL 08/17/2020 1:35 PM [facility] NEUTROPHILS 85(H) 34 - 68 % 08/17/2020 1:35 PM [facility] LYMPHOCYTES 7(L) 22 - 53 % 08/17/2020 1:35 PM [facility] MONOCYTES 7 5 - 12 % 08/17/2020 1:35 PM [facility] EOSINOPHILS 0(L) 1 - 7 % 08/17/2020 1:35 PM [facility] BASOPHILS 0 0 - 1 % 08/17/2020 1:35 PM [facility] IMMATURE GRANULOCYTES 1 % 08/17/2020 1:35 PM [facility] NEUTROPHIL ABSOLUTE 15.23(H) 1.78 - 5.38 K/uL 08/17/2020 1:35 PM [facility] LYMPHOCYTE ABSOLUTE 1.22 1.20 - 3.40 K/uL 08/17/2020 1:35 PM SEWER AND INSPECTOR [facility] MONOCYTE ABSOLUTE 1.33(H) 0.30 - 0.82 K/uL 08/17/2020 1:35 PM SEWER AND INSPECTOR [facility] EOSINOPHIL ABSOLUTE 0.01(L) 0.04 - 0.54 K/uL 08/17/2020 1:35 PM SEWER AND INSPECTOR [facility] BASOPHILS ABSOLUTE 0.03 0.01 - 0.08 K/uL 08/17/2020 1:35 PM SEWER AND INSPECTOR [facility] IMMATURE GRANULOCYTES ABSOLUTE 0.16 K/uL 08/17/2020 1:35 PM SEWER AND INSPECTOR [facility] Blood 08/17/2020 1:00 PM SEWER AND INSPECTOR 08/17/2020 1:32 PM SEWER AND INSPECTOR Panda Trevino MD HEMATOLOGY ORDERABLES Fin al Result [facility] CLIA # [id number] [address] [address] documented in this encounter Visit Diagnoses Not on filedocumented in this encounter Care Teams Transmitter Tester Relationship Specialty Start Date End Date Panda Trevino MD [address] [phone] PCP - General Family Practice 01/26/18 documented as of this encounter
--- OUTSIDE RECORDS SUMMARY | 2025-06-18 13:25 | XMS_ITS | Encounter Summary ---
Author Organization [facility] Address [address] [place]: [place] [address] Care Team Providers Care Shoemaking Finisher Name Role Phone Panda Trevino MD Primary Care Provider [phone] [phone] Encounter Details Date Type Department Care Team (Late st Contact Info) Description 02/18/2000 Outpatient Historical Non-Staff, Physician NO ADDRESS ON FILE Social History Tobacco Use Types Packs/Day Years Used Date Smoking Tobacco: Never Assessed Sex and Gender Information Value Date Recorded Sex Assigned at Not on file Legal Sex Male 3:48 AM SAUSAGE CANNER Gender Identity Not on file Sexual Orientation Not on file documented as of this encounter Plan of Treatment Not on file documented as of this encounter Visit Diagnoses Not on filedocumented in this encounter Care Teams Shoemaking Finisher Relationship Specialty Start Date End Date Panda Trevino MD [address] [place] [address] PCP - General Family Practice 01/26/18 documented as of this encounter
--- OUTSIDE RECORDS SUMMARY | 2025-06-18 13:25 | XMS_ITS | Encounter Summary ---
Author Organization [facility] Address [address] [place] [address] Care Team Providers Care Mobile Application Architect Name Role Phone Panda Trevino MD Primary Care Provider [phone] [phone] Encounter Details Date Type Department Care Team (Late st Contact Info) Description 03/24/2020 Lab Requisition [facility] Laboratory Services [address] [place] [address] [place] [address] Panda Trevino MD [address] [place] [address] Social History Tobacco Use Types Packs/Day Years Used Date Smoking Tobacco: Never Smokeless Tobacco: Current Comments:one can per week x 20 Alcohol Use Standard Drinks/Week Comments No 0 (1 standard drink = 0.6 oz pur e alcohol) Sex and Gender Information Value Date Recorded Sex Assigned at Not on file Legal Sex Male 3:48 AM RUG DYER Gender Identity Not on file Sexual Orientation [...] Date/Time Associated Diagnosis Comments C-REACTIVE PROTEIN Routine 03/24/2020 6: 58 AM CDT documented in this encounter Results * (ABNORMAL) C-REACTIVE PROTEIN (03/24/2020 6:58 AM CDT) CRP 17.4(H) 0.0 - 5.0 mg/L 03/24/2020 2:28 PM CDT [facility] Blood 03/24/2020 6:58 AM CDT 03/24/2020 2:03 PM CDT Panda Trevino MD CHEMISTRY ORDERABLES Barbara l Result [facility] [employer] [facility] [address] [place] [address] documented in this encounter Visit Diagnoses Not on filedocumented in this encounter Care Teams Mobile Application Architect Relationship Specialty Start Date End Date Panda Trevino MD [address] [facility] [address] [place] [address] PCP - General Family Practice 01/26/18 documented as of this encounter
--- OUTSIDE RECORDS SUMMARY | 2025-06-18 13:25 | XMS_ITS | Encounter Summary ---
Author Organization [facility] Address [address] [place] [address] Care Team Providers Care Retail Client Solutions Analyst Name Role Phone Panda Trevino MD Primary Care Provider +1 [phone] Encounter Details Date Type Department Care Team (Late st Contact Info) Description 01/18/2020 Lab Requisition [facility] Laboratory Services [address] [place] [address] [place] [address] Panda Trevino MD [address] [place] [address] Social History Tobacco Use Types Packs/Day Years Used Date Smoking Tobacco: Never Smokeless Tobacco: Current Comments:one can per week x 20 Alcohol Use Standard Drinks/Week Comments No 0 (1 standard drink = 0.6 oz pur e alcohol) Sex and Gender Information Value Date Recorded Sex Assigned at Not on file Legal 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 Male 3:48 AM CABIN CREW Gender Identity Not on file Sexual Orientation Not on file documented as of this encounter Plan of Treatment Not on file documented as of this encounter Procedures Procedure Name Priority Date/Time Associated Diagnosis Comments C-REACTIVE PROTEIN Routine 01/18/2020 5: 43 AM CDT CK Routine 01/18/2020 5:43 AM CDT documented in this encounter Results * (ABNORMAL) CK (01/18/2020 5:43 AM CDT) CK 667(H) 39 - 308 U/L 01/18/2020 4:52 PM CDT [facility] Blood 01/18/2020 5:43 AM CDT 01/18/2020 4:34 PM CDT Panda Trevino MD CHEMISTRY ORDERABLES Barbara l Result Performing Organization Address City/[facility] Co de Phone Number [facility] [address] [place] [address] * (ABNORMAL) C-REACTIVE PROTEIN (01/18/2020 5:43 AM CDT) CRP 42.9(H) 0.0 - 5.0 mg/L 01/18/2020 4:52 PM CDT [facility] Blood 01/18/2020 5:43 AM CDT 01/18/2020 4:34 PM CDT Panda Trevino MD CHEMISTRY ORDERABLES Barbara l Result Performing Organization Address [facility] de Phone Number [phone] [place], [place] [id number] documented in this encounter Visit Diagnoses Not on filedocumented in this encounter Care Teams Retail Client Solutions Analyst Relationship Specialty Start Date End Date Panda Trevino MD [address] [facility] [address] [place] [address] PCP - General Family Practice 01/26/18 documented as of this encounter
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
--- OUTSIDE RECORDS SUMMARY | 2025-06-18 13:25 | XMS_ITS | Encounter Summary ---
Author Organization [facility] Address [address] [place] [address] Care Team Providers Care Manufacturing Technologist Name Role Phone Panda Trevino MD Primary Care Provider +1 [phone] Encounter Details Date Type Department Care Team (Late st Contact Info) Description 07/01/2020 Lab Requisition [facility] Laboratory Services [address] [place] [address] [place] [address] Panda Trevino MD [address] [place] [address] Social History Tobacco Use Types Packs/Day Years Used Date Smoking Tobacco: Never Smokeless Tobacco: Current Comments:one can per week x 20 Alcohol Use Standard Drinks/Week Comments No 0 (1 standard drink = 0.6 oz pur e alcohol) Sex and Gender Information Value Date Recorded Sex Assigned at Not on file Legal Sex Male 3:48 AM TRANSFER STATION ATTENDANT Gender Identity Not on file Sexual Orientation Not on file documented as of this encounter Plan of Treatment Not on file documented as of this encounter Procedures Procedure Name Priority Date/Time Associated Diagnosis Comments WOUND CULTURE WITH GRAM STAIN Routine 07/01/2020 7:05 AM TRANSFER STATION ATTENDANT documented in this encounter Results * (ABNORMAL) WOUND (AEROBIC) CULTURE WITH GRAM STAIN (07/01/2020 7:05 AM TRANSFER STATION ATTENDANT) CULTURE ESCHERICHIA COLI(A) HMUERA MCG/ML 07/04/2020 8:13 AM TRANSFER STATION ATTENDANT [facility] CULTURE KLEBSIELLA PNEUMONIAE(A) HUMERA MCG/ML 07/04/2020 8:13 AM [facility] CULTURE ENTEROCOCCUS FAECALIS(A) HUMERA MCG/ML 07/04/2020 8:13 AM [facility] CULTURE CORYNEBACTERIUM(A) HUMERA MCG/ML 07/04/2020 8:13 AM [facility] Comment: This organism usually considered a source/site contaminant. Susceptibility not routinely performed GRAM STAIN No Polymorphonuclear WBC 07/04/2020 8:13 AM TRANSFER STATION ATTENDANT [facility] GRAM STAIN 4+ (Heavy) Gram positive cocci 07/04/2020 8:13 AM [facility] GRAM STAIN 4+ (Heavy) Gram negative rods 07/04/2020 8:13 AM [facility] GRAM STAIN 3+ (Moderate) Gram positive rods 07/04/2020 8:13 AM [facility] Wound [place] / Unknown Collection / Unknown 07/01/2020 7:05 AM TRANSFER STATION ATTENDANT 07/01/2020 8:17 PM TRANSFER STATION ATTENDANT Narrative Organism Antibiotic Method Susceptibility Escherichia coli AMOXICILLIN/ CLAVULANATE HUMERA MCG/ML 8 mcg/mL: Susceptible Escherichia coli AMPICILLIN/ SULBACTAM HUMERA [...] TRIMETHOPRIM/ SULFAMETHOXAZOLE HUMERA MCG/ML >=320 mcg/mL: Resistant Klebsiella pneumoniae AMOXICILLIN/ CLAVULANATE HUMERA MCG /ML 8 mcg/mL: Susceptible Klebsiella pneumoniae AMPICILLIN/ SULBACTAM HUMERA MCG/ML >=32 mcg/mL: Resistant Klebsiella pneumoniae AMPICILLIN HUMERA MCG/ML >=32 mcg/mL: Resistant Klebsiella pneumoniae CEFAZOLIN HUMERA MCG/ML >=64 mcg/mL: Resistant Klebsiella pneumoniae CEFEPIME HUMERA MCG/ML >=64 mcg/mL: Resistant Klebsiella pneumoniae CEFTRIAXONE HUMERA MCG/ML >=64 mcg/mL: Resistant Klebsiella pneumoniae CIPROFLOXACIN HUMERA MCG/ML 1 mcg/mL: Susceptible Klebsiella pneumoniae ERTAPENEM HUMERA MCG/ML <=0.5 mcg/mL: Susceptible Klebsiella pneumoniae GENTAMICIN HUMERA MCG/ML <=1 mcg/mL: Susceptible Klebsiella pneumoniae IMIPENEM HUMERA MCG/ML <=0.25 mcg/mL: Susceptible Klebsiella pneumoniae LEVOFLOXACIN HUMERA MCG/ML 1 mcg/mL: Susceptible Klebsiella pneumoniae PIPERACILLIN/ TAZOBACTAM HUMERA MCG /ML <=4 mcg/mL: Susceptible Klebsiella pneumoniae TOBRAMYCIN HUMERA MCG/ML <=1 mcg/mL: Susceptible Klebsiella pneumoniae TRIMETHOPRIM/ SULFAMETHOXAZOLE HUMERA MCG/ML >=320 mcg/mL: Resistant Comment:Imipenem susceptibil ity for this isolate is predictive of susceptibility to Meropenem. Meropenem (formulary preferred) should be utilized preferentially for therapy, if indicated. Enterococcus faecalis VANCOMYCIN HUMERA MCG/ML 1 mcg/mL: Susceptible Enterococcus faecalis AMPICILLIN HUMERA MCG/ML <=2 mcg/mL: Susceptible Panda Trevino MD MICROBIOLOGY - GENERAL OR DERABLES Final Result Performing Organization Address [facility]/State/[facility] Co de Phone Number [facility] LABORATORY SERVICES [address] [address] documented in this encounter Visit Diagnoses Not on filedocumented in this encounter Care Teams Manufacturing Technologist Relationship Specialty Start Date End Date Panda Trevino MD [address] [facility] [address] [place] [address] PCP - General Family Practice 01/26/18 documented as of this encounter
--- OUTSIDE RECORDS SUMMARY | 2025-06-18 13:25 | XMS_ITS | Encounter Summary ---
Author Organization [facility] Address [address] [place] [address] Care Team Providers Care Ed Case Manager Name Role Phone Panda Trevino MD Primary Care Provider +1 [phone] Encounter Details Date Type Department Care Team (Late st Contact Info) Description 03/17/2020 Lab Requisition [facility] Laboratory Services [address] [place] [address] [place] [address] Panda Trevino MD [address] [place] [address] Social History Tobacco Use Types Packs/Day Years Used Date Smoking Tobacco: Never Smokeless Tobacco: Current Comments:one can per week x 20 Alcohol Use Standard Drinks/Week Comments No 0 (1 standard drink = 0.6 oz pur e alcohol) Sex and Gender Information Value Date Recorded Sex Assigned at Not on file Legal Sex Male 3:48 AM GROUT WORKER Gender Identity Not on file Sexual Orientation [...] Date/Time Associated Diagnosis Comments C-REACTIVE PROTEIN Routine 03/17/2020 7: 58 AM CDT documented in this encounter Results * (ABNORMAL) C-REACTIVE PROTEIN (03/17/2020 7:58 AM CDT) CRP 11.5(H) 0.0 - 5.0 mg/L 03/17/2020 5:59 PM CDT [facility] [employer] [facility] Blood Collection / Unknown 03/17/2020 7:58 AM CDT 03/17/2020 5:35 PM CDT us Panda Trevino MD CHEMISTRY ORDERABLES Barbara l Result [facility] [employer] [facility] [address] [place] [address] documented in this encounter Visit Diagnoses Not on filedocumented in this encounter Care Teams Ed Case Manager Relationship Specialty Start Date End Date Panda Trevino MD [address] [facility] [address] [place] [phone] PCP - General Family Practice 01/26/18 documented as of this encounter
--- OUTSIDE RECORDS SUMMARY | 2025-06-18 13:25 | XMS_ITS | Encounter Summary ---
Author Organization [facility] Address [address] [place] [address] Care Team Providers Care Aerodynamics Professor Name Role Phone Panda Trevino MD Primary Care Provider +1 [phone] Encounter Details Date Type Department Care Team (Late st Contact Info) Description 04/28/2020 Lab Requisition [facility] Laboratory Services [address] [place] [address] [place] [address] Panad Trevino MD [address] [place] [address] Social History Tobacco Use Types Packs/Day Years Used Date Smoking Tobacco: Never Smokeless Tobacco: Current Comments:one can per week x 20 Alcohol Use Standard Drinks/Week Comments No 0 (1 standard drink = 0.6 oz pur e alcohol) Sex and Gender Information Value Date Recorded Sex Assigned at Not on file Legal Sex Male 3:48 AM ASSOCIATE DIRECTOR OF SALES Gender Identity Not on file Sexual Orientation Not on file documented as of this encounter Plan of Treatment Not on file documented as of this encounter Procedures Procedure Name Priority Date/Time Associated Diagnosis Comments C-REACTIVE PROTEIN Routine 04/28/2020 7: 10 AM ASSOCIATE DIRECTOR OF SALES documented in this encounter Results * (ABNORMAL) C-REACTIVE PROTEIN (04/28/2020 7:10 AM ASSOCIATE DIRECTOR OF SALES) CRP 18.5(H) 0.0 - 5.0 mg/L 04/28/2020 2:49 PM ASSOCIATE DIRECTOR OF SALES [facility] LABORATORY [facility] Blood Collection / Unknown 04/28/2020 7:10 AM ASSOCIATE DIRECTOR OF SALES 04/28/2020 2:30 PM ASSOCIATE DIRECTOR OF SALES Panda Trevino MD CHEMISTRY ORDERABLES Barbara dick Result Performing Organization Address City/State/[facility] Co de Phone Number [facility] [address] [address] documented in this encounter Visit Diagnoses Not on filedocumented in this encounter Care Teams Aerodynamics Professor Relationship Specialty Start Date End Date Panda Trevino MD [address] [phone] PCP - General Family Practice 01/26/18 documented as of this encounter
--- OUTSIDE RECORDS SUMMARY | 2025-06-18 13:25 | XMS_ITS | Encounter Summary ---
Author Organization [facility] Address [address] [place] [address] Care Team Providers Care Facility Service Manager Name Role Phone Panda Trevino MD Primary Care Provider [phone] [phone] Encounter Details Date Type Department Care Team (Late st Contact Info) Description 02/11/2020 Lab Requisition [facility] Laboratory Services [address] [place] [address] [place] [address] Panda Trevino MD [address] [place] [address] Social History Tobacco Use Types Packs/Day Years Used Date Smoking Tobacco: Never Smokeless Tobacco: Current Comments:one can per week x 20 Alcohol Use Standard Drinks/Week Comments No 0 (1 standard drink = 0.6 oz pur e alcohol) Sex and Gender Information Value Date Recorded Sex Assigned at Not on file Legal Sex Male 3:48 AM HOME CARE GIVER Gender Identity Not on file Sexual Orientation [...] Date/Time Associated Diagnosis Comments C-REACTIVE PROTEIN Routine 02/11/2020 8: 21 AM CDT documented in this encounter Results * (ABNORMAL) C-REACTIVE PROTEIN (02/11/2020 8:21 AM CDT) CRP 20.7(H) 0.0 - 5.0 mg/L 02/11/2020 5:30 PM CDT [facility] [employer] [facility] Blood Collection / Unknown 02/11/2020 8:21 AM CDT 02/11/2020 5:05 PM CDT us Panda Trevino MD CHEMISTRY ORDERABLES Barbara l Result [facility] [address] [place] [address] documented in this encounter Visit Diagnoses Not on filedocumented in this encounter Care Teams Facility Service Manager Relationship Specialty Start Date End Date Panda Trevino MD [address] [phone] PCP - General Family Practice 01/26/18 documented as of this encounter
--- OUTSIDE RECORDS SUMMARY | 2025-06-18 13:25 | XMS_ITS | Encounter Summary ---
Author Organization [facility] Address [address] [place] [address] Care Team Providers Care Tool And Die Designer Name Role Phone Panda Trevino MD Primary Care Provider +1 [phone] Encounter Details Date Type Department Care Team (Late st Contact Info) Description 01/21/2020 Lab Requisition [facility] Laboratory Services [address] [place] [address] [place] [address] Panda Trevino MD [address] [place] [address] Social History Tobacco Use Types Packs/Day Years Used Date Smoking Tobacco: Never Smokeless Tobacco: Current Comments:one can per week x 20 Alcohol Use Standard Drinks/Week Comments No 0 (1 standard drink = 0.6 oz pur e alcohol) Sex and Gender Information Value Date Recorded Sex Assigned at Not on file Legal Sex Male 3:48 AM ATTORNEY Gender Identity Not on file Sexual Orientation Not on file documented as of this encounter Plan of Treatment Not on file documented as of this encounter Procedures Procedure Name Priority Date/Time Associated Diagnosis Comments C-REACTIVE PROTEIN Routine 01/21/2020 7: 09 AM CDT CK Routine 01/21/2020 7:09 AM CDT documented in this encounter Results * (ABNORMAL) CK (01/21/2020 7:09 AM CDT) CK 719(H) 39 - 308 U/L 01/21/2020 6:37 PM CDT [facility] LABORATORY [facility] Blood Collection / Unknown 01/21/2020 7:09 AM CDT 01/21/2020 6:16 PM CDT Panda Trevino MD CHEMISTRY ORDERABLES Barbara l Result Performing Organization Address City/[facility]/ZIP Co de Phone Number [facility] [address] [place], [place] [address] * (ABNORMAL) C-REACTIVE PROTEIN (01/21/2020 7:09 AM CDT) CRP 34.2(H) 0.0 - 5.0 mg/L 01/21/2020 6:37 PM CDT [facility] Blood Collection / Unknown 01/21/2020 7:09 AM CDT 01/21/2020 6:16 PM CDT Panda Trevino MD CHEMISTRY ORDERABLES Barbara l Result Performing Organization Address City/[facility] Co de Phone Number [place] [place] [address] documented in this encounter Visit Diagnoses Not on filedocumented in this encounter Care Teams Tool And Die Designer Relationship Specialty Start Date End Date Panda Trevino MD [address] [phone] PCP - General Family Practice 01/26/18 documented as of this encounter
--- OUTSIDE RECORDS SUMMARY | 2025-06-18 13:25 | XMS_ITS | Encounter Summary ---
Author Organization [facility] Address [address] [place] [address] Care Team Providers Care Kiln Head House Operator Name Role Phone Panda Trevino MD Primary Care Provider [phone] [phone] Encounter Details Date Type Department Care Team (Late st Contact Info) Description 01/15/2020 Lab Requisition [facility] Laboratory Services [address] [place] [address] [place] [address] Panda Trevino MD [address] [place] [address] Social History Tobacco Use Types Packs/Day Years Used Date Smoking Tobacco: Never Smokeless Tobacco: Current Comments:one can per week x 20 Alcohol Use Standard Drinks/Week Comments No 0 (1 standard drink = 0.6 oz pur e alcohol) Sex and Gender Information Value Date Recorded Sex Assigned at Not on file Legal Sex Male 3:48 AM AN/SYQ 13 NAV/C2 OPERATOR Gender Identity Not on file Sexual Orientation Not on file documented as of this encounter Plan of Treatment Not on file documented as of this encounter Procedures Procedure Name Priority Date/Time Associated Diagnosis Comments C-REACTIVE PROTEIN Routine 01/15/2020 5: 51 AM CDT CK Routine 01/15/2020 5:51 AM CDT documented in this encounter Results * (ABNORMAL) CK (01/15/2020 5:51 AM CDT) CK 650(H) 39 - 308 U/L 01/15/2020 4:27 PM CDT [facility] LABORATORY [facility] Blood Collection / Unknown 01/15/2020 5:51 AM CDT 01/15/2020 4:08 PM CDT Panda Trevino MD CHEMISTRY ORDERABLES Barbara l Result Performing Organization Address City/[facility]/ZIP Co de Phone Number [facility] [address] [place], [place] [phone] * (ABNORMAL) C-REACTIVE PROTEIN (01/15/2020 5:51 AM CDT) CRP 48.6(H) 0.0 - 5.0 mg/L 01/15/2020 4:27 PM CDT [facility] Blood Collection / Unknown 01/15/2020 5:51 AM CDT 01/15/2020 4:08 PM CDT aPnda Trevino MD CHEMISTRY ORDERABLES Barbara l Result Performing Organization Address [facility] Co de Phone Number [place] [phone] [place], [place] [address] documented in this encounter Visit Diagnoses Not on filedocumented in this encounter Care Teams Kiln Head House Operator Relationship Specialty Start Date End Date Panda Trevino MD [address] [phone] PCP - General Family Practice 01/26/18 documented as of this encounter
--- OUTSIDE RECORDS SUMMARY | 2025-06-18 13:25 | XMS_ITS | Encounter Summary ---
Author Organization [facility] Address [address] [place] [address] Care Team Providers Care Gasoline Finisher Name Role Phone Panda Trevino MD Primary Care Provider +1 [phone] Encounter Details Date Type Department Care Team (Late st Contact Info) Description 03/10/2020 Lab Requisition [facility] Laboratory Services [address] [place] [address] [place] [address] Panda Trevino MD [address] [place] [address] Social History Tobacco Use Types Packs/Day Years Used Date Smoking Tobacco: Never Smokeless Tobacco: Current Comments:one can per week x 20 Alcohol Use Standard Drinks/Week Comments No 0 (1 standard drink = 0.6 oz pur e alcohol) Sex and Gender Information Value Date Recorded Sex Assigned at Not on file Legal Sex Male 3:48 AM AIR 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 ENGINEER Gender Identity Not on file Sexual Orientation [...] Date/Time Associated Diagnosis Comments C-REACTIVE PROTEIN Routine 03/10/2020 6: 50 AM CDT CK Routine 03/10/2020 6:50 AM CDT documented in this encounter Results * CK (03/10/2020 6:50 AM CDT) CK 278 39 - 308 U/L 03/10/2020 5:58 PM CDT [facility] Blood Collection / Unknown 03/10/2020 6:50 AM CDT 03/10/2020 5:04 PM CDT Panda Trevino MD CHEMISTRY ORDERABLES Barbara l Result Performing Organization Address City/[facility] Co de Phone Number [address] [phone] * (ABNORMAL) C-REACTIVE PROTEIN (03/10/2020 6:50 AM CDT) CRP 29.2(H) 0.0 - 5.0 mg/L 03/10/2020 5:58 PM CDT [facility] Blood Collection / Unknown 03/10/2020 6:50 AM CDT 03/10/2020 5:04 PM CDT Panda Trevino MD CHEMISTRY ORDERABLES Barbara l Result Performing Organization Address [facility] de Phone Number [address] [address] documented in this encounter Visit Diagnoses Not on filedocumented in this encounter Care Teams Gasoline Finisher Relationship Specialty Start Date End Date Panda Trevino MD [address] [address] PCP - General Family Practice 01/26/18 documented as of this encounter
--- OUTSIDE RECORDS SUMMARY | 2025-06-18 13:25 | XMS_ITS | Encounter Summary ---
Author Organization [facility] Address [address] [place] [address] Care Team Providers Care Supervisor Tank Storage Name Role Phone Panda Trevino MD Primary Care Provider +1 [phone] Encounter Details Date Type Department Care Team (Late st Contact Info) Description 04/14/2020 Lab Requisition [facility] Laboratory Services [address] [place] [address] [place] [address] Panda Trevino MD [address] [place] [address] Social History Tobacco Use Types Packs/Day Years Used Date Smoking Tobacco: Never Smokeless Tobacco: Current Comments:one can per week x 20 Alcohol Use Standard Drinks/Week Comments No 0 (1 standard drink = 0.6 oz pur e alcohol) Sex and Gender Information Value Date Recorded Sex Assigned at Not on file Legal Sex Male 3:48 AM SWATCH MAKER Gender Identity Not on file Sexual Orientation Not on file documented as of this encounter Plan of Treatment Not on file documented as of this encounter Procedures Procedure Name Priority Date/Time Associated Diagnosis Comments C-REACTIVE PROTEIN Routine 04/14/2020 7: 39 AM CDT documented in this encounter Results * (ABNORMAL) C-REACTIVE PROTEIN (04/14/2020 7:39 AM CDT) CRP 36.5(H) 0.0 - 5.0 mg/L 04/14/2020 3:59 PM CDT [facility] Blood Collection / Unknown 04/14/2020 7:39 AM CDT 04/14/2020 3:43 PM CDT Panda Trevino MD CHEMISTRY ORDERABLES Barbara dick Result [facility] LABORATORY SERVICES [address] [address] documented in this encounter Visit Diagnoses Not on filedocumented in this encounter Care Teams Supervisor Tank Storage Relationship Specialty Start Date End Date Panda Trevino MD [address] [facility] [address] [place] [phone] PCP - General Family Practice 01/26/18 documented as of this encounter
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
--- OUTSIDE RECORDS SUMMARY | 2025-06-18 13:25 | XMS_ITS | Encounter Summary ---
Author Organization [facility] Address [address] [place] [address] Care Team Providers Care Medical File Clerk Name Role Phone Panda Trevino MD Primary Care Provider [phone] Encounter Details Date Type Department Care Team (Late st Contact Info) Description 01/24/2020 Lab Requisition [facility] Laboratory Services [address] [place] [address] Panda Trevino MD [address] [place] [address] Social History Tobacco Use Types Packs/Day Years Used Date Smoking Tobacco: Never Smokeless Tobacco: Current Comments:one can per week x 20 Alcohol Use Standard Drinks/Week Comments No 0 (1 standard drink = 0.6 oz pur e alcohol) Sex and Gender Information Value Date Recorded Sex Assigned at Not on file Legal Sex Male 3:48 AM RESPIRATORY MEDICINE PHYSICIAN Gender Identity Not on file Sexual Orientation Not on file documented as of this encounter Plan of Treatment Not on file documented as of this encounter Procedures Procedure Name Priority Date/Time Associated Diagnosis Comments C-REACTIVE PROTEIN Routine 01/24/2020 5: 16 AM CDT CK Routine 01/24/2020 5:16 AM CDT documented in this encounter Results * (ABNORMAL) CK (01/24/2020 5:16 AM CDT) CK 606(H) 39 - 308 U/L 01/24/2020 2:29 PM CDT [facility] Blood Collection / Unknown 01/24/2020 5:16 AM CDT 01/24/2020 2:05 PM CDT Panda Trevino MD CHEMISTRY ORDERABLES Barbara l Result Performing Organization Address City/[facility]/ZIP Co de Phone Number [facility] [address] [place], [place] [address] * (ABNORMAL) C-REACTIVE PROTEIN (01/24/2020 5:16 AM CDT) CRP 19.7(H) 0.0 - 5.0 mg/L 01/24/2020 2:29 PM CDT [facility] Linkedwith [facility] Blood Collection / Unknown 01/24/2020 5:16 AM CDT 01/24/2020 2:05 PM CDT Panda Trevino MD CHEMISTRY ORDERABLES Barbara l Result Performing Organization Address City/[facility] Co de Phone Number [place] [phone] [place] [address] documented in this encounter Visit Diagnoses Not on filedocumented in this encounter Care Teams Medical File Clerk Relationship Specialty Start Date End Date Panda Trevino MD [address] [phone] PCP - General Family Practice 01/26/18 documented as of this encounter
--- OUTSIDE RECORDS SUMMARY | 2025-06-18 13:25 | XMS_ITS | Encounter Summary ---
Author Organization [facility] Address [address] [place] [address] Care Team Providers Care Marking Machine Operator Name Role Phone Panda Trevino MD Primary Care Provider [phone] [phone] Encounter Details Date Type Department Care Team (Late st Contact Info) Description 04/07/2020 Lab Requisition [facility] Laboratory Services [address] [place] [address] Panda Trevino MD [address] [place] [address] Social History Tobacco Use Types Packs/Day Years Used Date Smoking Tobacco: Never Smokeless Tobacco: Current Comments:one can per week x 20 Alcohol Use Standard Drinks/Week Comments No 0 (1 standard drink = 0.6 oz pur e alcohol) Sex and Gender Information Value Date Recorded Sex Assigned at Not on file Legal Sex Male 3:48 AM INTERNAL REVENUE SERVICE AGENT Gender Identity Not on file Sexual Orientation [...] Date/Time Associated Diagnosis Comments C-REACTIVE PROTEIN Routine 04/07/2020 6: 45 AM CDT documented in this encounter Results * (ABNORMAL) C-REACTIVE PROTEIN (04/07/2020 6:45 AM CDT) CRP 22.1(H) 0.0 - 5.0 mg/L 04/07/2020 3:59 PM CDT [facility] Blood Collection / Unknown 04/07/2020 6:45 AM CDT 04/07/2020 3:43 PM CDT us Panda Trevino MD CHEMISTRY ORDERABLES Barbara l Result [facility] [address] [place] [address] documented in this encounter Visit Diagnoses Not on filedocumented in this encounter Care Teams Marking Machine Operator Relationship Specialty Start Date End Date Panda Trevino MD [address] [facility] [address] [place] [address] PCP - General Family Practice 01/26/18 documented as of this encounter
--- OUTSIDE RECORDS SUMMARY | 2025-06-18 13:25 | XMS_ITS | Encounter Summary ---
Author Organization [facility] Address [address] [place] [address] Care Team Providers Care Healthcare Management Consultant Name Role Phone Panda Trevino MD Primary Care Provider [phone] Encounter Details Date Type Department Care Team (Late st Contact Info) Description 04/10/2020 Lab Requisition [facility] Laboratory Services [address] [place] [address] Panda Trevino MD [address] [place] [address] Social History Tobacco Use Types Packs/Day Years Used Date Smoking Tobacco: Never Smokeless Tobacco: Current Comments:one can per week x 20 Alcohol Use Standard Drinks/Week Comments No 0 (1 standard drink = 0.6 oz pur e alcohol) Sex and Gender Information Value Date Recorded Sex Assigned at Not on file 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 Gender Identity Not on file Sexual [...] GRAM STAIN (04/10/2020 7:18 AM CDT) CULTURE KLEBSIELLA PNEUMONIAE(A) HUMERA MCG/ML 04/14/2020 7:17 AM CDT [facility] CULTURE STAPHYLOCOCCUS AUREUS(A) HUMERA MCG/ML 04/14/2020 7:17 AM CDT [facility] CULTURE PROTEUS MIRABILIS(A) HUMERA MCG/ML 04/14/2020 7:17 AM CDT [facility] GRAM STAIN 1+ (Rare or Occasional) Gram positive cocci 04/14/2020 7:17 AM CDT [facility] GRAM STAIN 1+ (Rare or Occasional) Polymorphonuclear WBC 04/14/2020 7:17 AM CDT [facility] Wound SWAB FROM BUTTOCK / Unknown Collection / Unknown 04/10/2020 7:18 AM CDT 04/10/2020 4:43 PM CDT Narrative Organism Antibiotic Method Susceptibility Klebsiella pneumoniae AMOXICILLIN/ CLAVULANATE HUMERA MCG /ML 4 mcg/mL: Susceptible Klebsiella pneumoniae AMPICILLIN/ SULBACTAM HUMERA MCG/ML 16 mcg/mL: Intermediate Klebsiella pneumoniae AMPICILLIN HUMERA MCG/ML >=32 mcg/mL: Resistant Klebsiella pneumoniae CEFAZOLIN HUMERA MCG/ML >=64 mcg/mL: Resistant Klebsiella pneumoniae CEFEPIME HUMERA MCG/ML 2 mcg/mL: Susceptible Klebsiella pneumoniae CEFTRIAXONE HUMERA MCG/ML >=64 mcg/mL: Resistant Klebsiella pneumoniae CIPROFLOXACIN HUMERA MCG/ML 0.5 mcg/mL: Susceptible Klebsiella pneumoniae GENTAMICIN HUMERA MCG/ML <=1 mcg/mL: Susceptible Klebsiella pneumoniae LEVOFLOXACIN HUMERA MCG/ML 1 mcg/mL: Susceptible Klebsiella pneumoniae PIPERACILLIN/ TAZOBACTAM HUMERA MCG /ML <=4 mcg/mL: Susceptible Klebsiella pneumoniae TOBRAMYCIN HUMERA MCG/ML <=1 mcg/mL: Susceptible Klebsiella pneumoniae TRIMETHOPRIM/ SULFAMETHOXAZOLE HUMERA MCG/ML <=20 mcg/mL: Susceptible Staphylococcus aureus CLINDAMYCIN HUMERA MCG/ML 0.25 mcg/mL: Susceptible Staphylococcus aureus ERYTHROMYCIN HUMERA MCG/ML <=0.25 mcg/mL: Susceptible Staphylococcus aureus OXACILLIN (Nafcillin) HUMERA MCG/ML 0.5 mcg/mL: Susceptible Comment:Oxacillin newberry sceptible S.aureus (MSSA) is predictably susceptible to cefazolin and ceftriaxone. Staphylococcus aureus TRIMETHOPRIM/ SULFAMETHOXAZOLE HUMERA MCG/ML <=10 mcg/mL: Susceptible Staphylococcus aureus VANCOMYCIN HUMERA MCG/ML 1 mcg/mL: Susceptible Staphylococcus aureus DOXYCYCLINE HUMERA MCG/ML <=0.5 mcg/mL: Susceptible Proteus mirabilis AMOXICILLIN/ CLAVULANATE HUMERA MCG/ML 4 mcg/mL: Susceptible Proteus mirabilis AMPICILLIN/ SULBACTAM HUMERA MCG/ML 16 mcg/mL: Intermediate Proteus mirabilis AMPICILLIN HUMERA MCG/ML >=32 mcg/mL: Resistant Proteus mirabilis CEFAZOLIN HUMERA MCG/ML >=64 mcg/mL: Resistant Proteus mirabilis CEFEPIME HUMERA MCG/ML 2 mcg/mL: Susceptible Proteus mirabilis CEFTRIAXONE HUMERA MCG/ML >=64 mcg/mL: Resistant Proteus mirabilis CIPROFLOXACIN HUMERA MCG/ML 0.5 mcg/mL: Susceptible Proteus mirabilis GENTAMICIN HUMERA MCG/ML <=1 mcg/mL: Susceptible Proteus mirabilis LEVOFLOXACIN HUMERA MCG/ML 1 mcg/mL: Susceptible Proteus mirabilis PIPERACILLIN/ TAZOBACTAM HUMERA MCG/ML <=4 mcg/mL: Susceptible Proteus mirabilis TOBRAMYCIN HUMERA MCG/ML <=1 mcg/mL: Susceptible Proteus mirabilis TRIMETHOPRIM/ SULFAMETHOXAZOLE HUMERA MCG/ML <=20 mcg/mL: Susceptible Panda Trevino MD MICROBIOLOGY - GENERAL OR DERABLES Final Result Performing Organization Address [facility]/State/[facility] Co de Phone Number [facility] [address] [address] documented in this encounter Visit Diagnoses Not on filedocumented in this encounter Care Teams Healthcare Management Consultant Relationship Specialty Start Date End Date Panda Trevino MD [address] [address] PCP - General Family Practice 01/26/18 documented as of this encounter
--- OUTSIDE RECORDS SUMMARY | 2025-06-18 13:25 | XMS_ITS | Encounter Summary ---
Author Organization [facility] Address [address] [place] [address] Care Team Providers Care B2B Sales Executive Name Role Phone Panda Trevino MD Primary Care Provider [phone] Encounter Details Date Type Department Care Team (Late st Contact Info) Description 02/18/2020 Lab Requisition [facility] Laboratory Services [address] [place] [address] Panda Trevino MD [address] [place] [address] Social History Tobacco Use Types Packs/Day Years Used Date Smoking Tobacco: Never Smokeless Tobacco: Current Comments:one can per week x 20 Alcohol Use Standard Drinks/Week Comments No 0 (1 standard drink = 0.6 oz pur e alcohol) Sex and Gender Information Value Date Recorded Sex Assigned at Not on file 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 Gender Identity Not on file Sexual Orientation [...] Date/Time Associated Diagnosis Comments C-REACTIVE PROTEIN Routine 02/18/2020 8: 25 AM CDT documented in this encounter Results * (ABNORMAL) C-REACTIVE PROTEIN (02/18/2020 8:25 AM CDT) CRP 10.1(H) 0.0 - 5.0 mg/L 02/18/2020 7:31 PM CDT [facility] [employer] [facility] Blood Collection / Unknown 02/18/2020 8:25 AM CDT 02/18/2020 7:11 PM CDT us Panda Trevino MD CHEMISTRY ORDERABLES Barbara l Result [facility] [address] [place] [address] documented in this encounter Visit Diagnoses Not on filedocumented in this encounter Care Teams B2B Sales Executive Relationship Specialty Start Date End Date Panda Trevino MD [address] [phone] PCP - General Family Practice 01/26/18 documented as of this encounter
--- NOTE | 2025-06-18 13:39 | ECG_ITS ---
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
[2025-06-18 14:07] LABS: Hematocrit 37.7 % (37-53); Hemoglobin 12.10 g/dL (11.27-16.99); Mean Corpuscular HGB Conc 32.1 g/dL (30-55); Mean Corpuscular Hemoglobin 25.8 pg (27-33); Mean Corpuscular Volume 80.4 fl (82-101); Nucleated Red Blood Cells % 0 %; Platelet Count 493 10^3/cmm (157-399); Red Blood Count 4.69 10^6/uL (3.85-5.65); White Blood Count 17.24 10^3/uL (3.29-11.43)
[2025-06-18 14:23] LABS: Lactic Sepsis W/Reflex 1.0 mmol/L (0.5-2.2)
[2025-06-18 14:24] LABS: Alanine Aminotransferase 13 U/L (0-41); Albumin Level 3.3 g/dL (3.5-5.2); Alkaline Phosphatase 120 U/L (40-130); Anion Gap 18.5 (5-19); Aspartate Amino Transferase 18 U/L (0-40); Calcium 9.0 mg/dL (8.5-10.5); Carbon Dioxide 29 mmol/L (22-29); Chloride 90 mmol/L (98-107); Globulin 5.0 g/dL (1.3-4.6); Glucose 101 mg/dL (65-115); Osmolality Calculated 311 mOsm/kg (285-295); Potassium 3.5 mmol/L (3.5-5.1); Sodium 134 mmol/L (136-145); Total Protein 8.3 g/dL (6.6-8.7)
[2025-06-18 14:31] LABS: Blood Urea Nitrogen 106 mg/dL (8-23)
--- NOTE | 2025-06-18 14:38 | XR_ITS ---
WS: [id number] Portable AP semiupright chest, Clinical Data: dyspnea/cough Comparison: Two-view chest, 09/14/2016 Findings: No nodules, masses or effusions are seen. The heart is normal. The pulmonary vascularity is not increased. No pneumonia or pneumothorax is seen. The aortic arch shows calcification and tortuosity. There is a lower cervical spinal fusion. There are monitor leads on the chest wall. XR/XR chest 1V portable [id number] Impression: Atherosclerosis.
--- NOTE | 2025-06-18 14:39 | W.ED.GENADLT ---
Documented by User: Vince Otero, 06/25/25 10:28 HPI - General Adult General: Chief complaint: General Medical Stated complaint: not eating or drinking Time Seen by Provider: 06/18/25 13:25 History of Present Illness: 69-year-old male presents to the emergency room From local long-term significant decrease in intake the last several days. Has a chronic indwelling Junior due to a neurogenic bladder as a result of a spinal cord injury several decades ago. Patient is not mobile. He is otherwise awake and alert answers questions. He was hypotensive at the long-term as well although there is no reported fever. On arrival here he is hypotensive as well. Associated symptoms: Deny chest pain, dyspnea or rash Related Data Home Medications ?Medication ?Instructions ?Recorded ?Confirmed acetaminophen 325 mg tablet 650 mg PO Q6H PRN Pain 07/17/19 06/19/25 (Tylenol) baclofen 10 mg tablet 10 mg PO TID 07/17/19 06/19/25 bisacodyl 10 mg rectal suppository 10 mg SD QDAY PRN Constipation 07/17/19 06/19/25 (Dulcolax (bisacodyl)) magnesium hydroxide 400 mg/5 mL 5 ml PO QDAY PRN Constipation 07/17/19 06/19/25 oral suspension (Milk of Magnesia) melatonin 5 mg capsule 5 mg PO DAILY 07/17/19 06/19/25 multivitamin with iron 1 tab PO QDAY 07/17/19 06/19/25 tramadol 50 mg tablet 50 mg PO Q8H PRN Pain 07/17/19 06/19/25 polyethylene glycol 3350 17 17 g PO DAILY PRN Constipation 05/28/21 06/19/25 gram/dose oral powder (Miralax) bismuth subsalicylate 262 mg/15 mL 524 mg PO Q1H PRN UPSET STOMACH 02/04/22 06/19/25 oral suspension (Pepto-Bismol) sodium phosphates 19 gram-7 118 ml SD DAILY PRN Constipation 02/04/22 06/19/25 gram/118 mL enema (Fleet Enema) citric ac 1980.6 mg-glucono 59.4 30 ml irrigation DAILY 06/19/25 06/19/25 mg-mag carb 980.4 mg/30 mL irrig.soln (Renacidin) sennosides 8.6 mg-docusate sodium 1 tab-cap PO DAILY 06/19/25 06/19/25 50 mg tablet (Stool Softener-Laxative) tramadol 50 mg tablet 100 mg PO BEDTIME 06/19/25 06/19/25 Previous Rx's ?Medication ?Instructions ?Recorded ertapenem 1 gram solution for 1 g IV DAILY 6 days 06/24/25 injection gabapentin 100 mg capsule 100 mg PO BID 60 days #120 caps 06/24/25 midodrine 5 mg tablet 10 mg (2 x 5 mg) PO TID 60 days 06/24/25 #360 tabs remdesivir 100 mg intravenous 100 mg IV Q24H 3 days 06/24/25 powder for solution sodium di- and 1 tab PO BID 3 days #6 tabs 06/24/25 monophosphate-potassium phos monobasic 250 mg tablet (Phospha Neutral) Allergies Allergy/AdvReac Type Severity Reaction Status Date / Time vancomycin Allergy NA Verified 02/04/22 14:36 Review of Systems Const: Denies: fever(s) or chills Card: Denies: chest pain Resp: Denies: dyspnea GI: Denies: abdominal pain : Denies: dysuria, urinary frequency or urinary urgency Musc: Denies: neck pain or back pain Skin/Breast: Denies: rash PFSH ED PFSH: Medical History History of chronic urinary tract infection Quadriplegia, unspecified Neurogenic bladder Bladder calculus Surgical History History of back surgery Family History Father , 86 CAD (coronary artery disease) Mother Diabetes Social History Smoking and tobacco/nicotine status: never used tobacco/nicotine Alcohol intake: never Substance/Drug Use: never Adopted: No Caregiver/support person: No Lives independently: No Marital status: Single Current occupational status: disabled Physical Exam Const: GENERAL APPEARANCE: cooperative ORIENTATION/CONSCIOUSNESS: Yes awake HENMT: COMMON NORMALS: normocephalic, atraumatic and hearing grossly normal bilaterally HEAD & SCALP: normocephalic and atraumatic Resp: COMMON NORMALS: normal respiratory effort, No retractions, No use of accessory muscles and clear to auscultation bilaterally AUSCULTATION: clear to auscultation bilaterally Cardio: COMMON NORMALS: regular rate, regular rhythm and No murmurs present (Cardio) RATE: regular rate RHYTHM: regular rhythm GI: COMMON NORMALS: Soft to palpation and No hepatosplenomegaly present AUSCULTATION: Yes normoactive bowel sounds PALPATION: Yes Soft to palpation, No Tenderness to palpation present (GI), No Guarding due to palpation present (GI) and Yes No hepatosplenomegaly present Extremity: COMMON NORMALS: normal to inspection, capillary refill normal, no clubbing, cyanosis or edema, no calf tenderness and no pedal edema Skin: COMMON NORMALS: no rashes or lesions noted GENERAL SKIN EXAM: no rashes or lesions noted Course Vital Signs: Vital signs: Vital Signs Temperature 98.2 F 06/24/25 17:50 Pulse Rate 61 06/24/25 17:50 Respiratory Rate 18 06/24/25 17:50 Blood Pressure 76/48 06/24/25 17:50 Pulse Oximetry 97 06/24/25 17:50 Oxygen Delivery Me thod Room Air 06/24/25 15:53 Oxygen Flow Rate 2 06/20/25 17:15 MDM - General Adult Medical Decision Making 69-year-old male presents to the emergency room With hypotension. He also shows signs of significant volume depletion. His white count is 17-4. Urine shows greater than 100 whites and 100 red blood cells per high-power field. His lactate is normal at 1.0. He was given IV fluids to for volume replacement. He shows signs of a mild acute kidney injury and that his baseline creatinine is 0.6 and he is at 1.1. His BUN is markedly elevated. Additionally he is positive for COVID. He was started on IV antibiotics for his urinary tract infection and given IV fluids for volume replacement. Cultures have been done. Labs and imaging reviewed as found in the chart there is no evidence of obstruction from the Junior he is due to have it replaced in 1 to 2 weeks per his report will be replaced today. Discussed with hospitalist orders written. Also believe his tunneling sacral decubitus ulcer places potentially significant role he has chronic osteomyelitis as noted on the CT today. Medical Records I reviewed the patient's medical records. Lab Data I reviewed the patient's lab results. 06/24/25 04:47 06/24/25 04:47 Radiology Impressions Chest X-Ray 06/18/25 14:38 Impression: Atherosclerosis. Abdomen/Pelvis CT 06/18/25 15:38 IMPRESSION: 1. Urinary bladder decompressed around a suprapubic catheter balloon. There is thickening of the wall and intraluminal air likely related to the suprapubic catheter, however cystitis cannot be excluded. There are 3 large bladder calcifications which are new since July 31, 2019. 2. Zxae-ly-hrwlzakh bilateral hydroureteronephrosis. Small bilateral renal stones are present. No obstructing ureteral stone is seen. 3. Copious amount of fecal material in the rectosigmoid region with a mild amount of fecal material throughout the remainder of the colon. 4. Bilateral decubitus ulcers extending to the ischial tuberosities bilaterally with increased sclerosis in the ischial tuberosities suspicious for chronic osteomyelitis. These findings have progressed since July 31, 2019. If clinically indicated, MRI may be helpful for further evaluation. 5. 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 COMMENTS: For patients with an IVC filter, recommend assessment for a management plan for the patient's IVC filter. If there is no established management plan, recommend referral to an interventional clinician on a nonemergent basis for evaluation. Renal Ultrasound 06/21/25 06:27 IMPRESSION: 1. Limited quality evaluation of the kidneys. 2. Small amount of residual hydronephrosis LEFT kidney cannot be excluded. 3. No hydronephrosis RIGHT kidney. Laboratory Results WBC 17.24 10^3/uL (3.29-11.43) H 06/18/25 13:51 RBC 4.69 10^6/uL (3.85-5.65) 06/18/25 13:51 Hgb 12.10 g/dL (11.27-16.99) 06/18/25 13:51 Hct 37.7 % (37-53) 06/18/25 13:51 MCV 80.4 fl (82-101) L 06/18/25 13:51 MCH 25.8 pg (27-33) L 06/18/25 13:51 MCHC 32.1 g/dL (30-55) 06/18/25 13:51 RDW 15.3 % (12.1-15.1) H 06/18/25 13:51 Plt Count 493 10^3/cmm (157-399) H 06/18/25 13:51 MPV 9.1 fL (7.4-10.4) 06/18/25 13:51 Neut % (Auto) 78.4 % 06/18/25 13:51 Lymph % (Auto) 11.8 % 06/18/25 13:51 [place] % (Auto) 6.2 % 06/18/25 13:51 Eos % (Auto) 0.4 % 06/18/25 13:51 Baso % (Auto) 0.2 % 06/18/25 13:51 Neut # (Auto) 13.52 10^3/uL (1.8-7.7) H 06/18/25 13:51 Lymph # (Auto) 2.0 10^3/uL (0.8-4.8) 06/18/25 13:51 [place] # (Auto) 1.1 10^3/uL (0.2-0.9) H 06/18/25 13:51 Eos # (Auto) 0.1 10^3/uL (0.0-0.8) 06/18/25 13:51 Baso # (Auto) 0.0 10^3/uL (0.0-0.1) 06/18/25 13:51 Nucleated RBC % (auto) 0 % 06/18/25 13:51 Nucleated RBCs # 0.0 /100WBC 06/18/25 13:51 ESR > 120 mm/hr (0-10) H 06/18/25 13:51 Sodium 134 mmol/L (136-145) L 06/18/25 13:51 Potassium 3.5 mmol/L (3.5-5.1) 06/18/25 13:51 Chloride 90 mmol/L (98-107) L 06/18/25 13:51 Carbon Dioxide 29 mmol/L (22-29) 06/18/25 13:51 Anion Gap 18.5 (5-19) 06/18/25 13:51 BUN 106 mg/dL (8-23) H* D 06/18/25 13:51 Creatinine 1.1 mg/dL (0.7-1.2) 06/18/25 13:51 GFR Calculation 66.6 mL/min (90-130) L 06/18/25 13:51 Glucose 101 mg/dL (65-115) 06/18/25 13:51 Calculated Osmolality 311 mOsm/kg (285-295) H 06/18/25 13:51 Lactic Acid 1.0 mmol/L (0.5-2.2) 06/18/25 13:51 Calcium 9.0 mg/dL (8.5-10.5) 06/18/25 13:51 Magnesium 3.4 mg/dL (1.7-2.3) H 06/18/25 13:51 Total Bilirubin 0.4 mg/dL (0.15-1.2) 06/18/25 13:51 AST 18 U/L (0-40) 06/18/25 13:51 ALT 13 U/L (0-41) 06/18/25 13:51 Alkaline Phosphatase 120 U/L (40-130) 06/18/25 13:51 C-Reactive Protein 159.9 mg/L (0.0-4.9) H 06/18/25 13:51 Total Protein 8.3 g/dL (6.6-8.7) 06/18/25 13:51 Albumin 3.3 g/dL (3.5-5.2) L 06/18/25 13:51 Globulin 5.0 g/dL (1.3-4.6) H 06/18/25 13:51 Urine Color Cancelled 06/18/25 14:29 Urine Color [place] (Yellow) A 06/18/25 14:29 Urine Appearance Cancelled 06/18/25 14:29 Urine Appearance Turbid (CLEAR) A 06/18/25 14: Urine pH 8.5 (5-7) A 06/18/25 14: Urine pH Cancelled 06/18/25 14:29 Ur Specific [place] 1.014 (1.005-1.030) 06/18/25 14:29 Ur Specific [place] Cancelled 06/18/25 14: Urine Protein 2+ (Negative) A 06/18/25 14: Urine Protein Cancelled 06/18/25 14:29 Urine Glucose (UA) Cancelled 06/18/25 14: Urine Glucose (UA) Negative (Normal) 06/18/25 14:29 Urine Ketones Cancelled 06/18/25 14:29 Urine Ketones Trace (Negative) 06/18/25 14: Urine Blood 3+ (Negative) A 06/18/25 14:29 Urine Blood Cancelled 06/18/25 14:29 Urine Nitrate Cancelled 06/18/25 14:29 Urine Nitrate Positive (Negative) A 06/18/25 14:29 Urine Bilirubin Cancelled 06/18/25 14: Urine Bilirubin Negative (Negative) 06/18/25 14:29 Prot Sulfosalicylic Acd Cancelled 06/18/25 14:29 Urine Urobilinogen 0.2 mg/dL (Negative) 06/18/25 14:29 Urine Urobilinogen Cancelled 06/18/25 14:29 Ur Leukocyte Esterase 3+ (Negative) A 06/18/25 14:29 Ur Leukocyte Esterase Cancelled 06/18/25 14:29 Urine RBC >100 /hpf (0-2) H 06/18/25 14:29 Urine RBC Cancelled 06/18/25 14:29 Urine WBC >100 /hpf (0-5) H 06/18/25 14:29 Urine WBC Cancelled 06/18/25 14:29 Ur Squamous Epith Cells 6-10 /hpf (0-5) 06/18/25 14:29 Ur Squamous Epith Cells Cancelled 06/18/25 14:29 Ur Transition Epith Cell Cancelled 06/18/25 14:29 Ur Renal Epithelial Cell Cancelled 06/18/25 14:29 Calcium Oxalate Crystal Cancelled 06/18/25 14:29 Uric Acid Crystals Cancelled 06/18/25 14:29 Triple Phos Crystals Cancelled 06/18/25 14:29 Other Crystals Cancelled 06/18/25 14:29 Amorphous Sediment 2+ /hpf 06/18/25 14:29 Amorphous Sediment Cancelled 06/18/25 14:29 Urine Bacteria 4+ /hpf (NONE) H 06/18/25 14:29 Urine Bacteria Cancelled 06/18/25 14:29 Hyaline Casts 73.42 /lpf 06/18/25 14:29 Hyaline Casts Cancelled 06/18/25 14:29 Fine Granular Casts Cancelled 06/18/25 14:29 Coarse Granular Casts Cancelled 06/18/25 14:29 RBC Casts Cancelled 06/18/25 14:29 Other Casts Cancelled 06/18/25 14:29 Urine Mucus Cancelled 06/18/25 14:29 Urine Trichomonas Cancelled 06/18/25 14:29 Urine Yeast Cancelled 06/18/25 14:29 Urine Sperm Cancelled 06/18/25 14:29 Ur Oval Fat Bodies Cancelled 06/18/25 14:29 Influenza A (PCR) Negative (Negative) 06/18/25 17:01 Influenza Type B (PCR) Negative (Negative) 06/18/25 17:01 RSV (PCR) Negative (Negative) 06/18/25 17:01 SARS-CoV-2 (PCR) Positive (Negative) A 06/18/25 17:01 Blood Type A Positive 06/18/25 14:56 Rho(D) Type Rh positive 06/18/25 14:56 Antibody Screen Negative 06/18/25 14:56 ED provider radiology interpretation(s): Chest x-ray no acute infiltrates no cardiomegaly no effusion CT reviewed from radiology read. EKG Data EKG 1: I personally reviewed and interpreted this EKG as follows: Computer generated interpretation: Chest X-Ray 06/18/25 14:38 Impression: Atherosclerosis. Abdomen/Pelvis CT 06/18/25 15:38 IMPRESSION: 1. Urinary bladder decompressed around a suprapubic catheter balloon. There is thickening of the wall and intraluminal air likely related to the suprapubic catheter, however cystitis cannot be excluded. There are 3 large bladder calcifications which are new since July 31, 2019. 2. Bkuj-qt-[id number] bilateral hydroureteronephrosis. Small bilateral renal stones are present. No obstructing ureteral stone is seen. 3. Copious amount of fecal material in the rectosigmoid region with a mild amount of fecal material throughout the remainder of the colon. 4. Bilateral decubitus ulcers extending to the ischial tuberosities bilaterally with increased sclerosis in the ischial tuberosities suspicious for chronic osteomyelitis. These findings have progressed since July 31, 2019. If clinically indicated, MRI may be helpful for further evaluation. 5. 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 COMMENTS: For patients with an IVC filter, recommend assessment for a management plan for the patient's IVC filter. If there is no established management plan, recommend referral to an interventional clinician on a nonemergent basis for evaluation. Renal Ultrasound 06/21/25 06:27 IMPRESSION: 1. Limited quality evaluation of the kidneys. 2. Small amount of residual hydronephrosis LEFT kidney cannot be excluded. 3. No hydronephrosis RIGHT kidney. EKG 06/18/2025 1339 Sinus rhythm rate of 51 SD interval 366 QTc [address] changes noted. No to the computer read states it is a electronic atrial pacer however patient does not have a pacemaker. No previous EKGs available for comparison Discharge Plan Discharge Patient Disposition: Admitted As Inpatient Admit Provider: Ang Neal Clinical Impression: Acute kidney injury, History of chronic urinary tract infection, Chronic osteomyelitis, pelvis, Urinary tract infection associated with indwelling urethral catheter, initial encounter, Quadriplegia, unspecified, Decubitus ulcer of ischial area Condition: Stable Coding Level of Care Code ED Cane Weigher Helper for Chg Fwd Documented by User: LYNN Peterson, CUSTOMER RELATIONSHIP SPECIALIST 06/20/25 07:12 HPI - General Adult General: Chief complaint: General Medical Stated complaint: not eating or drinking Time Seen by Provider: 06/18/25 13:25 History of Present Illness: Please OMIT document Related Data Home Medications ?Medication ?Instructions ?Recorded ?Confirmed acetaminophen 325 mg tablet 650 mg PO Q6H PRN Pain 07/17/19 06/19/25 (Tylenol) baclofen 10 mg tablet 10 mg PO TID 07/17/19 06/19/25 bisacodyl 10 mg rectal suppository 10 mg SD QDAY PRN Constipation 07/17/19 06/19/25 (Dulcolax (bisacodyl)) magnesium hydroxide 400 mg/5 mL 5 ml PO QDAY PRN Constipation 07/17/19 06/19/25 oral suspension (Milk of Magnesia) melatonin 5 mg capsule 5 mg PO DAILY 07/17/19 06/19/25 multivitamin with iron 1 tab PO QDAY 07/17/19 06/19/25 tramadol 50 mg tablet 50 mg PO Q8H PRN Pain 07/17/19 06/19/25 polyethylene glycol 3350 17 17 g PO DAILY PRN Constipation 05/28/21 06/19/25 gram/dose oral powder (Miralax) bismuth subsalicylate 262 mg/15 mL 524 mg PO Q1H PRN UPSET STOMACH 02/04/22 06/19/25 oral suspension (Pepto-Bismol) sodium phosphates 19 gram-7 118 ml SD DAILY PRN Constipation 02/04/22 06/19/25 gram/118 mL enema (Fleet Enema) citric ac 1980.6 mg-glucono 59.4 30 ml irrigation DAILY 06/19/25 06/19/25 mg-mag carb 980.4 mg/30 mL irrig.soln (Renacidin) sennosides 8.6 mg-docusate sodium 1 tab-cap PO DAILY 06/19/25 06/19/25 50 mg tablet (Stool Softener-Laxative) tramadol 50 mg tablet 100 mg PO BEDTIME 06/19/25 06/19/25 Previous Rx's ?Medication ?Instructions ?Recorded ertapenem 1 gram solution for 1 g IV DAILY 6 days 06/24/25 injection gabapentin 100 mg capsule 100 mg PO BID 60 days #120 caps 06/24/25 midodrine 5 mg tablet 10 mg (2 x 5 mg) PO TID 60 days 06/24/25 #360 tabs remdesivir 100 mg intravenous 100 mg IV Q24H 3 days 06/24/25 powder for solution sodium di- and 1 tab PO BID 3 days #6 tabs 06/24/25 monophosphate-potassium phos monobasic 250 mg tablet (Phospha Neutral) Allergies Allergy/AdvReac Type Severity Reaction Status Date / Time vancomycin Allergy NA Verified 02/04/22 14:36 Review of Systems Narrative: DELETE DOCUMENT PFSH ED PFSH: Medical History History of chronic urinary tract infection Quadriplegia, unspecified Neurogenic bladder Bladder calculus Surgical History History of back surgery Family History Father , 86 CAD (coronary artery disease) Mother Diabetes Social History Smoking and tobacco/nicotine status: never used tobacco/nicotine Alcohol intake: never Substance/Drug Use: never Adopted: No Caregiver/support person: No Lives independently: No Marital status: Single Current occupational status: disabled Course Vital Signs: Vital signs: Vital Signs Temperature 98.2 F 06/24/25 17:50 Pulse Rate 61 06/24/25 17:50 Respiratory Rate 18 06/24/25 17:50 Blood Pressure 76/48 06/24/25 17:50 Pulse Oximetry 97 06/24/25 17:50 Oxygen Delivery Me thod Room Air 06/24/25 15:53 Oxygen Flow Rate 2 06/20/25 17:15 MDM - General Adult Medical Decision Making OMIT DOCUMENT Lab Data 06/24/25 04:47 06/24/25 04:47 Radiology Impressions Chest X-Ray 06/18/25 14:38 Impression: Atherosclerosis. Abdomen/Pelvis CT 06/18/25 15:38 IMPRESSION: 1. Urinary bladder decompressed around a suprapubic catheter balloon. There is thickening of the wall and intraluminal air likely related to the suprapubic catheter, however cystitis cannot be excluded. There are 3 large bladder calcifications which are new since July 31, 2019. 2. Uhph-sz-[id number] bilateral hydroureteronephrosis. Small bilateral renal stones are present. No obstructing ureteral stone is seen. 3. Copious amount of fecal material in the rectosigmoid region with a mild amount of fecal material throughout the remainder of the colon. 4. Bilateral decubitus ulcers extending to the ischial tuberosities bilaterally with increased sclerosis in the ischial tuberosities suspicious for chronic osteomyelitis. These findings have progressed since July 31, 2019. If clinically indicated, MRI may be helpful for further evaluation. 5. 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 COMMENTS: For patients with an IVC filter, recommend assessment for a management plan for the patient's IVC filter. If there is no established management plan, recommend referral to an interventional clinician on a nonemergent basis for evaluation. Renal Ultrasound 06/21/25 06:27 IMPRESSION: 1. Limited quality evaluation of the kidneys. 2. Small amount of residual hydronephrosis LEFT kidney cannot be excluded. 3. No hydronephrosis RIGHT kidney. Laboratory Results WBC 17.24 10^3/uL (3.29-11.43) H 06/18/25 13:51 RBC 4.69 10^6/uL (3.85-5.65) 06/18/25 13:51 Hgb 12.10 g/dL (11.27-16.99) 06/18/25 13:51 Hct 37.7 % (37-53) 06/18/25 13:51 MCV 80.4 fl (82-101) L 06/18/25 13:51 MCH 25.8 pg (27-33) L 06/18/25 13:51 MCHC 32.1 g/dL (30-55) 06/18/25 13:51 RDW 15.3 % (12.1-15.1) H 06/18/25 13:51 Plt Count 493 10^3/cmm (157-399) H 06/18/25 13:51 MPV 9.1 fL (7.4-10.4) 06/18/25 13:51 Neut % (Auto) 78.4 % 06/18/25 13:51 Lymph % (Auto) 11.8 % 06/18/25 13:51 [place] % (Auto) 6.2 % 06/18/25 13:51 Eos % (Auto) 0.4 % 06/18/25 13:51 Baso % (Auto) 0.2 % 06/18/25 13:51 Neut # (Auto) 13.52 10^3/uL (1.8-7.7) H 06/18/25 13:51 Lymph # (Auto) 2.0 10^3/uL (0.8-4.8) 06/18/25 13:51 [place] # (Auto) 1.1 10^3/uL (0.2-0.9) H 06/18/25 13:51 Eos # (Auto) 0.1 10^3/uL (0.0-0.8) 06/18/25 13:51 Baso # (Auto) 0.0 10^3/uL (0.0-0.1) 06/18/25 13:51 Nucleated RBC % (auto) 0 % 06/18/25 13:51 Nucleated RBCs # 0.0 /100WBC 06/18/25 13:51 ESR > 120 mm/hr (0-10) H 06/18/25 13:51 Sodium 134 mmol/L (136-145) L 06/18/25 13:51 Potassium 3.5 mmol/L (3.5-5.1) 06/18/25 13:51 Chloride 90 mmol/L (98-107) L 06/18/25 13:51 Carbon Dioxide 29 mmol/L (22-29) 06/18/25 13:51 Anion Gap 18.5 (5-19) 06/18/25 13:51 BUN 106 mg/dL (8-23) H* D 06/18/25 13:51 Creatinine 1.1 mg/dL (0.7-1.2) 06/18/25 13:51 GFR Calculation 66.6 mL/min (90-130) L 06/18/25 13:51 Glucose 101 mg/dL (65-115) 06/18/25 13:51 Calculated Osmolality 311 mOsm/kg (285-295) H 06/18/25 13:51 Lactic Acid 1.0 mmol/L (0.5-2.2) 06/18/25 13:51 Calcium 9.0 mg/dL (8.5-10.5) 06/18/25 13:51 Magnesium 3.4 mg/dL (1.7-2.3) H 06/18/25 13:51 Total Bilirubin 0.4 mg/dL (0.15-1.2) 06/18/25 13:51 AST 18 U/L (0-40) 06/18/25 13:51 ALT 13 U/L (0-41) 06/18/25 13:51 Alkaline Phosphatase 120 U/L (40-130) 06/18/25 13:51 C-Reactive Protein 159.9 mg/L (0.0-4.9) H 06/18/25 13:51 Total Protein 8.3 g/dL (6.6-8.7) 06/18/25 13:51 Albumin 3.3 g/dL (3.5-5.2) L 06/18/25 13:51 Globulin 5.0 g/dL (1.3-4.6) H 06/18/25 13:51 Urine Color Cancelled 06/18/25 14:29 Urine Color [place] (Yellow) A 06/18/25 14:29 Urine Appearance Cancelled 06/18/25 14: Urine Appearance Turbid (CLEAR) A 06/18/25 14: Urine pH 8.5 (5-7) A 06/18/25 14:29 Urine pH Cancelled 06/18/25 14:29 Ur Specific [place] 1.014 (1.005-1.030) 06/18/25 14:29 Ur Specific [place] Cancelled 06/18/25 14: Urine Protein 2+ (Negative) A 06/18/25 14: Urine Protein Cancelled 06/18/25 14:29 Urine Glucose (UA) Cancelled 06/18/25 14: Urine Glucose (UA) Negative (Normal) 06/18/25 14: Urine Ketones Cancelled 06/18/25 14: Urine Ketones Trace (Negative) 06/18/25 14: Urine Blood 3+ (Negative) A 06/18/25 14:29 Urine Blood Cancelled 06/18/25 14:29 Urine Nitrate Cancelled 06/18/25 14: Urine Nitrate Positive (Negative) A 06/18/25 14: Urine Bilirubin Cancelled 06/18/25 14: Urine Bilirubin Negative (Negative) 06/18/25 14:29 Prot Sulfosalicylic Acd Cancelled 06/18/25 14:29 Urine Urobilinogen 0.2 mg/dL (Negative) 06/18/25 14:29 Urine Urobilinogen Cancelled 06/18/25 14:29 Ur Leukocyte Esterase 3+ (Negative) A 06/18/25 14:29 Ur Leukocyte Esterase Cancelled 06/18/25 14:29 Urine RBC >100 /hpf (0-2) H 06/18/25 14:29 Urine RBC Cancelled 06/18/25 14:29 Urine WBC >100 /hpf (0-5) H 06/18/25 14:29 Urine WBC Cancelled 06/18/25 14:29 Ur Squamous Epith Cells 6-10 /hpf (0-5) 06/18/25 14:29 Ur Squamous Epith Cells Cancelled 06/18/25 14:29 Ur Transition Epith Cell Cancelled 06/18/25 14:29 Ur Renal Epithelial Cell Cancelled 06/18/25 14:29 Calcium Oxalate Crystal Cancelled 06/18/25 14:29 Uric Acid Crystals Cancelled 06/18/25 14:29 Triple Phos Crystals Cancelled 06/18/25 14:29 Other Crystals Cancelled 06/18/25 14:29 Amorphous Sediment 2+ /hpf 06/18/25 14:29 Amorphous Sediment Cancelled 06/18/25 14:29 Urine Bacteria 4+ /hpf (NONE) H 06/18/25 14:29 Urine Bacteria Cancelled 06/18/25 14:29 Hyaline Casts 73.42 /lpf 06/18/25 14:29 Hyaline Casts Cancelled 06/18/25 14:29 Fine Granular Casts Cancelled 06/18/25 14:29 Coarse Granular Casts Cancelled 06/18/25 14:29 RBC Casts Cancelled 06/18/25 14:29 Other Casts Cancelled 06/18/25 14:29 Urine Mucus Cancelled 06/18/25 14:29 Urine Trichomonas Cancelled 06/18/25 14:29 Urine Yeast Cancelled 06/18/25 14:29 Urine Sperm Cancelled 06/18/25 14:29 Ur Oval Fat Bodies Cancelled 06/18/25 14:29 Influenza A (PCR) Negative (Negative) 06/18/25 17:01 Influenza Type B (PCR) Negative (Negative) 06/18/25 17:01 RSV (PCR) Negative (Negative) 06/18/25 17:01 SARS-CoV-2 (PCR) Positive (Negative) A 06/18/25 17:01 Blood Type A Positive 06/18/25 14:56 Rho(D) Type Rh positive 06/18/25 14:56 Antibody Screen Negative 06/18/25 14:56 XR interpretation done by ED provider, pending radiology final review EKG Data EKG 1: Computer generated interpretation: Chest X-Ray 06/18/25 14:38 Impression: Atherosclerosis. Abdomen/Pelvis CT 06/18/25 15:38 IMPRESSION: 1. Urinary bladder decompressed around a suprapubic catheter balloon. There is thickening of the wall and intraluminal air likely related to the suprapubic catheter, however cystitis cannot be excluded. There are 3 large bladder calcifications which are new since July 31, 2019. 2. Iwuo-my-euqsqyou bilateral hydroureteronephrosis. Small bilateral renal stones are present. No obstructing ureteral stone is seen. 3. Copious amount of fecal material in the rectosigmoid region with a mild amount of fecal material throughout the remainder of the colon. 4. Bilateral decubitus ulcers extending to the ischial tuberosities bilaterally with increased sclerosis in the ischial tuberosities suspicious for chronic osteomyelitis. These findings have progressed since July 31, 2019. If clinically indicated, MRI may be helpful for further evaluation. 5. 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 COMMENTS: For patients with an IVC filter, recommend assessment for a management plan for the patient's IVC filter. If there is no established management plan, recommend referral to an interventional clinician on a nonemergent basis for evaluation. Renal Ultrasound 06/21/25 06:27 IMPRESSION: 1. Limited quality evaluation of the kidneys. 2. Small amount of residual hydronephrosis LEFT kidney cannot be excluded. 3. No hydronephrosis RIGHT kidney. Discharge Plan Discharge Patient Disposition: Admitted As Inpatient Admit Provider: Ang Neal Clinical Impression: Acute kidney injury, History of chronic urinary tract infection, Chronic osteomyelitis, pelvis, Urinary tract infection associated with indwelling urethral catheter, initial encounter, Quadriplegia, unspecified, Decubitus ulcer of ischial area Condition: Stable Coding Level of Care Code ED Cane Weig[employer] Helper for Perla Swanson
[2025-06-18 15:33] LABS: Glucose Urine UA Negative (Normal); Nitrate Urine Positive (Negative); Specific Gravity, Urine 1.014 (1.005-1.030)
[2025-06-18 15:35] LABS: Universal Test for UA Present (0)
--- NOTE | 2025-06-18 15:38 | CTR_ITS ---
PROCEDURE INFORMATION: Exam: CT Abdomen And Pelvis Without Contrast Exam date and time: 06/18/2025 4:09 PM Age: 69 years old Clinical indication: Abdominal pain TECHNIQUE: Imaging protocol: Computed tomography of the abdomen and pelvis without contrast. Radiation optimization: All CT scans at this facility use at least one of these dose optimization techniques: automated exposure control; mA and/or kV adjustment per patient size (includes targeted exams where dose is matched to clinical indication); or iterative reconstruction. COMPARISON: MR pelvis wo/w con [id number] 04/08/2020 8:56 AM RADIATION DOSE METRICS: Total DLP (mGy-cm): 679.5 FINDINGS: Lungs: Visualized lung bases are clear. Liver: There is a small calcified granuloma in the posterior right hepatic lobe. Otherwise unremarkable on this noncontrast study. Gallbladder and biliary ducts: No radiopaque stones. No significant biliary ductal dilatation. Pancreas: Mild fatty atrophy. Spleen: Unremarkable. Adrenal glands: Unremarkable. Kidneys and ureters: There are small bilateral renal calculi. There is [id number] bilateral hydroureteronephrosis. No distal obstructing ureteral stones are seen. Stomach and bowel: There is a copious amount of fecal material in the rectosigmoid region. There is a mild amount of fecal material throughout the remainder of the colon.There is no significant bowel dilatation or evidence of obstruction. Appendix: No evidence of appendicitis. Intraperitoneal space: There is mild stranding of the fat in the presacral region. No significant free fluid. No free air. No focal fluid collection. Vasculature: The abdominal aorta is normal in caliber. There is mild atherosclerotic calcification. No abdominal aortic aneurysm. An IVC filter is noted. Lymph nodes: Unremarkable. No pathologically enlarged lymph nodes detected. Urinary bladder: There is a suprapubic catheter in place with the bladder decompressed around the catheter balloon. There are 3 large calcifications in the dependent portion of the urinary bladder measuring up to 2.6 cm. There is thickening of the wall of the urinary bladder with intraluminal air. Reproductive: Unremarkable as visualized. Bones/joints: There is chronic fracture deformity of the right proximal femur with nonunion, new since the prior study. There are fracture deformities of the L2 and L3 vertebral bodies, likely old. These were not included on the prior CT pelvis. Diffuse degenerative changes are noted. There is increased sclerosis within the bilateral ischial tuberosities which could be related to chronic osteomyelitis. No focal erosion is appreciated. Soft tissues: There are decubitus ulcers within the buttocks bilaterally which extend to the ischial tuberosities bilaterally. CT/CT abdomen pelvis wo con [id number] IMPRESSION: 1. Urinary bladder decompressed around a suprapubic catheter balloon. There is thickening of the wall and intraluminal air likely related to the suprapubic catheter, however cystitis cannot be excluded. There are 3 large bladder calcifications which are new since July 31, 2019. 2. [id number]-[id number] bilateral hydroureteronephrosis. Small bilateral renal stones are present. No obstructing ureteral stone is seen. 3. Copious amount of fecal material in the rectosigmoid region with a mild amount of fecal material throughout the remainder of the colon. 4. Bilateral decubitus ulcers extending to the ischial tuberosities bilaterally with increased sclerosis in the ischial tuberosities suspicious for chronic osteomyelitis. These findings have progressed since July 31, 2019. If clinically indicated, MRI may be helpful for further evaluation. 5. 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 COMMENTS: For patients with an IVC filter, recommend assessment for a management plan for the patient's IVC filter. If there is no established management plan, recommend referral to an interventional clinician on a nonemergent basis for evaluation.
[2025-06-18 15:47] LABS: UA Slide Review UA Slide Review Perf
[2025-06-18] MEDS: pantoprazole 40 mg SDV 80 MG IVP (16:18)
--- NOTE | 2025-06-18 16:49 | P.HP_ITS ---
Providers/Chief Complaint 2 Admitting Physician: Dr. Hans Pichardo MD Primary Care Provider: Bereket Dickson DO Chief Complaint: not eating or drinking History of Present Illness PLEASE OMIT DOCUMENT Medications/Allergies Home Medications ?Medication ?Instructions ?Recorded ?Confirmed ?Last Taken ?Type acetaminophen 325 mg tablet 650 mg PO Q6H PRN Pain 06/19/25 06/18/25 03:55 History (Tylenol) baclofen 10 mg tablet 10 mg PO TID 07/17/1906/18/25 09:40 History bisacodyl 10 mg rectal suppository 10 mg [place] QDAY PRN C onstipation 07/17/19 06/19/25 Unknown History (Dulcolax (bisacodyl)) magnesium hydroxide 400 mg/5 mL 5 ml PO QDAY PRN Const ipation 07/17/19 06/19/25 06/14/25 08:15 History oral suspension (Milk of Magnesia) melatonin 5 mg capsule 5 mg PO DAILY 07/17/1906/1906/17/25 20:15 History multivitamin with iron 1 tab PO QDAY 07/17/1906/19 Unknown History tramadol 50 mg tablet 50 mg PO Q8H PRN Pain 06/19/25 06/18/25 09:40 History polyethylene glycol 3350 17 17 g PO DAILY PRN Constipa tion 05/28/21 06/19/25 06/17/25 20:05 History gram/dose oral powder (Miralax) bismuth subsalicylate 262 mg/15 mL 524 mg PO Q1H PRN U PSET STOMACH 02/04/22 06/19/25 Unknown History oral suspension (Pepto-Bismol) sodium phosphates 19 gram-7 118 ml [place] DAILY PRN Consti pation 02/04/22 06/19/25 Unknown History gram/118 mL enema (Fleet Enema) citric ac 1980.6 mg-glucono 59.4 30 ml irrigation MAXIMUS Y 06/19/25 06/19/25 06/18/25 10:35 History mg-mag carb 980.4 mg/30 mL irrig.soln (Renacidin) nitrofurantoin 100 mg PO BID 06/19/2506/1906/18/25 09:40 History monohydrate/macrocrystals 100 mg capsule sennosides 8.6 mg-docusate sodium 1 tab-cap PO DAILY 1 08/20/24 06/19/25 06/09/25 20:25 History 50 mg tablet (Stool Softener-Laxative) tramadol 50 mg tablet 100 mg PO BEDTIME 06/19/25 1 08/20/24 06/17/25 20:20 History Allergies Allergy/AdvReac Type Severity Reaction Status Date / Time vancomycin Allergy NA Verified 02/04/22 14:36 PFSH Acute 2 PFSH: Medical History History of chronic urinary tract infection Quadriplegia, unspecified Neurogenic bladder Bladder calculus Surgical History History of back surgery Family History Father , 86 CAD (coronary artery disease) Mother Diabetes Social History Smoking and tobacco/nicotine status: never used tobacco/nicotine Alcohol intake: never Substance/Drug Use: never Adopted: No Caregiver/support person: No Lives independently: No Marital status: Single Current occupational status: disabled Vitals/I&O/Wt Last Vital Signs Temp 97.8 F 06/18/25 13:30 Pulse 54 L 06/18/25 16:30 Resp 14 06/18/25 13:30 BP 140/90 06/18/25 16:30 Pulse Ox 97 06/18/25 16:30 06/18/25 06/18/25 06/18/25 06:59 14:59 22:59 Intake Total 500 / 500 2000 / 2500 Balance 500 / 500 2000 / 2500 Weight last 48 hrs Weight 74.843 kg Data 06/20/25 03:31 06/20/25 03:31 Micro: Microbiology 06/18/25 13:51 Blood Culture - Preliminary Blood SPECIMEN COLLECTED 06/18/25 13:57 Blood Culture - Preliminary Blood SPECIMEN COLLECTED A&P PDMP PDMP Reviewed: Not Reviewed Attestations 2 Medical Necessity Statement*: Patient expected to stay at least 2 midnights for management of UTI with antibiotics and food intolerance.
--- NOTE | 2025-06-18 16:49 | PM.HP ---
Providers/Chief Complaint Admitting Physician: Dr. Hans Pichardo MD Primary Care Provider: Bereket Dickson DO Chief Complaint: not eating or drinking History of Present Illness PLEASE OMIT DOCUMENT Medications/Allergies Home Medications ?Medication ?Instructions ?Recorded ?Confirmed ?Last Taken ?Type acetaminophen 325 mg tablet 650 mg PO Q6H PRN Pain 07/17/19 06/19/25 06/18/25 03:55 History (Tylenol) baclofen 10 mg tablet 10 mg PO TID 07/17/19 06/19/25 06/18/25 09:40 History bisacodyl 10 mg rectal suppository 10 mg [place] QDAY PRN Constipation 07/17/19 06/19/25 Unknown History (Dulcolax (bisacodyl)) magnesium hydroxide 400 mg/5 mL 5 ml PO QDAY PRN Constipation 07/17/19 06/19/25 06/14/25 08:15 History oral suspension (Milk of Magnesia) melatonin 5 mg capsule 5 mg PO DAILY 07/17/19 06/19/25 06/17/25 20:15 History multivitamin with iron 1 tab PO QDAY 07/17/19 06/19/25 Unknown History tramadol 50 mg tablet 50 mg PO Q8H PRN Pain 07/17/19 06/19/25 06/18/25 09:40 History polyethylene glycol 3350 17 17 g PO DAILY PRN Constipation 05/28/21 06/19/25 06/17/25 20:05 History gram/dose oral powder (Miralax) bismuth subsalicylate 262 mg/15 mL 524 mg PO Q1H PRN UPSET STOMACH 02/04/22 06/19/25 Unknown History oral suspension (Pepto-Bismol) sodium phosphates 19 gram-7 118 ml [place] DAILY PRN Constipation 02/04/22 06/19/25 Unknown History gram/118 mL enema (Fleet Enema) citric ac 1980.6 mg-glucono 59.4 30 ml irrigation DAILY 06/19/25 06/19/25 06/18/25 10:35 History mg-mag carb 980.4 mg/30 mL irrig.soln (Renacidin) nitrofurantoin 100 mg PO BID 06/19/25 06/19/25 06/18/25 09:40 History monohydrate/macrocrystals 100 mg capsule sennosides 8.6 mg-docusate sodium 1 tab-cap PO DAILY 06/19/25 06/19/25 06/09/25 20:25 History 50 mg tablet (Stool Softener-Laxative) tramadol 50 mg tablet 100 mg PO BEDTIME 06/19/25 06/19/25 06/17/25 20:20 History Allergies Allergy/AdvReac Type Severity Reaction Status Date / Time vancomycin Allergy NA Verified 02/04/22 14:36 PFSH Acute PFSH: Medical History History of chronic urinary tract infection Quadriplegia, unspecified Neurogenic bladder Bladder calculus Surgical History History of back surgery Family History Father , 86 CAD (coronary artery disease) Mother Diabetes Social History Smoking and tobacco/nicotine status: never used tobacco/nicotine Alcohol intake: never Substance/Drug Use: never Adopted: No Caregiver/support person: No Lives independently: No Marital status: Single Current occupational status: disabled Vitals/I&O/Wt Last Vital Signs Temp 97.8 F 06/18/25 13:30 Pulse 54 L 06/18/25 16:30 Resp 14 06/18/25 13:30 BP 140/90 06/18/25 16:30 Pulse Ox 97 06/18/25 16:30 06/18/25 06/18/25 06/18/25 06:59 14:59 22:59 Intake Total 500 / 500 2000 / 2500 Balance 500 / 500 2000 / 2500 Weight last 48 hrs Weight 74.843 kg Data 06/20/25 03:31 06/20/25 03:31 Micro: Microbiology 06/18/25 13:51 Blood Culture - Preliminary Blood SPECIMEN COLLECTED 06/18/25 13:57 Blood Culture - Preliminary Blood SPECIMEN COLLECTED A&P PDMP PDMP Reviewed: Not Reviewed Attestations Medical Necessity Statement*: Patient expected to stay at least 2 midnights for management of UTI with antibiotics and food intolerance.
[2025-06-18 17:59] LABS: Respiratory Syncytial Virus Ce NEGATIVE (Negative)
[2025-06-18 18:11] LABS: SARS-CoV-2 PCR Positive (Negative)
[2025-06-18 19:03] LABS: Magnesium 3.4 mg/dL (1.7-2.3)
[2025-06-18] MEDS: heparin 5,000 unit/mL INJ 1 mL 5000 UNIT SUBCUT (19:25)
[2025-06-18] MEDS: piperacillin-tazobactam 3.375 GM in sodium chloride 0.9% (plus) 50 ML IV (20:47)
--- NOTE | 2025-06-18 21:11 | P.HP_ITS ---
Providers/Chief Complaint 2 Admitting Physician: Ang Neal MD Primary Care Provider: Bereket Dickson DO Chief Complaint: not eating or drinking History of Present Illness History as per the previous notes and the patient: Curtis Carrera is a 69 year old male bedridden with past medical history of quadriplegia since more than 30 yrs due to accident, bed ridden secondary to quadriplegia, decubitus ulcer of the left hip with multiple tracts and soiled with stools, chronic urinary tract infection, neurogenic bladder on suprapubic cath presented with decreased appetite and feeling of unwell. the patient is wide awake and alert and complained of having decrease appetite, with some feeling of chills but not high grade fever. he also reported mild nausea but not actively vomiting. no abd pain or any diarrhea. no lower leg swellings or any chest pain. he also informed having on and off mild shortness of breath but not distressed lately. In the ER the patient was having labile blood pressure and leukocytosis with high inflammatory markers. Due to his labile blood pressure that was responsive to fluids patient was admitted to ICU as a case of septic shock since there is high likely chance of having infectious source of his presentation. Review of Systems 2 General: Reports: 10 or more systems reviewed and unremarkable except in HPI and below Medications/Allergies Home Medications ?Medication ?Instructions ?Recorded ?Confirmed ?Last Taken ?Type acetaminophen 325 mg tablet 650 mg PO Q6H PRN Pain 02/04/22 Unknown History (Tylenol) baclofen 10 mg tablet 10 mg PO TID 07/17/19 Unknown History bisacodyl 10 mg rectal suppository 10 mg [place] QDAY PRN C onstipation 07/17/19 02/04/22 Unknown History (Dulcolax (bisacodyl)) citric ac 1980.6 mg-glucono 59.4 30 ml irrigation MAXIMUS Y 07/17/19 02/04/22 Unknown History mg-mag carb 980.4 mg/30 mL irrig.soln (Renacidin) magnesium hydroxide 400 mg/5 mL 5 ml PO QDAY PRN Const ipation 07/17/19 02/04/22 Unknown History oral suspension (Milk of Magnesia) melatonin 5 mg capsule 5 mg PO DAILY 07/17/1902/04 Unknown History multivitamin with iron 1 tab PO QDAY 07/17/1905/28 Unknown History sennosides 8.6 mg capsule (senna) 8.6 mg PO BID PRN Co nstipation 07/17/19 02/04/22 Unknown History tramadol 50 mg tablet 50 mg PO Q8H PRN Pain 02/04/22 Unknown History polyethylene glycol 3350 17 17 g PO DAILY PRN 05/28/21 02/04/22 Unknown History gram/dose oral powder bismuth subsalicylate 262 mg/15 mL 524 mg PO Q1H PRN 0 02/04/22 02/04/22 Unknown History oral suspension (Pepto-Bismol) citric ac 1980.6 mg-glucono 59.4 30 ml irrigation ONCE 02/04/22 02/04/22 Unknown History mg-mag carb 980.4 mg/30 mL irrig.soln (Renacidin) collagenase clostridium histo. 250 1 applic topical DA CALE 02/04/22 02/04/22 Unknown History unit/gram topical ointment (Santyl) furosemide 20 mg tablet 20 mg PO DAILY PRN 02/04/22 02/04/22 Unknown History sertraline 50 mg tablet 50 mg PO DAILY 02/04/2201/25 Unknown History sodium hypochlorite 0.125 % 1 applic topical DAILY 05/1802/04/22 Unknown History solution (Dakin's Solution) sodium phosphates 19 gram-7 118 ml [place] DAILY PRN 02/04/22 Unknown History gram/118 mL enema (Fleet Enema) Allergies Allergy/AdvReac Type Severity Reaction Status Date / Time vancomycin Allergy NA Verified 02/04/22 14:36 PFSH Acute 2 PFSH: Medical History (Updated 06/18/25 @ 21:21 by Ang Neal MD) History of chronic urinary tract infection Quadriplegia, unspecified Neurogenic bladder Bladder calculus Surgical History History of back surgery Family History Father , 86 CAD (coronary artery disease) Mother Diabetes Social History (Reviewed 06/18/25 @ 16:52 by Scarlet A Dankwa, VIDEO EDITING INTERN, ACADEMIC AFFAIRS VICE PRESIDENT) Smoking and tobacco/nicotine status: never used tobacco/nicotine Alcohol intake: never Substance/Drug Use: never Adopted: No Caregiver/support person: No Lives independently: No Marital status: Single Current occupational status: disabled Vitals/I&O/Wt Last Vital Signs Temp 97.8 F 06/18/25 13:30 Pulse 61 06/18/25 21:06 Resp 14 06/18/25 20:22 BP 96/62 06/18/25 21:06 Pulse Ox 94 06/18/25 21:06 O2 Del Method Room Air 06/18/25 20:22 06/18/25 06/18/25 06/18/25 06:59 14:59 22:59 Intake Total 500 / 500 2332.5 / 2832.5 Balance 500 / 500 2332.5 / 2832.5 Weight last 48 hrs Weight 74.843 kg Physical Exam 2 Narrative: General: Alert and oriented, lying comfortably without any distress, HEENT: Normocephalic, atraumatic, grossly unremarkable exam Cardio: normal rate rhythm, normal S1-S2 without any murmurs, rubs, or gallops and JVD normal Respiratory: abdomino thoracic pattern of breathing, normal vascular breathing on auscultation without any wheezes, stridor, rhonchi GI: Abdomen soft, nontender, nondistended, normoactive bowel sounds present all 4 quadrants, supra pubic catheter in place with mild pus/slough around the edges Neuro: baseline quadriplegic, but alert and oriented Extremities: palpable pulses, mild trace edema Skin: multiple decubitus ulcers on the buttocks with stool soiling, seems chronic, tissue is not well perfused, delay capillary refill, pressure sores on the feet as well mainly on the left one Data 06/18/25 13:51 06/18/25 13:51 Micro: Microbiology 06/18/25 13:51 Blood Culture - Preliminary Blood SPECIMEN COLLECTED 06/18/25 13:57 Blood Culture - Preliminary Blood SPECIMEN COLLECTED A&P Assessment and plan 1. Septic shock: 2 sets of blood cultures, urine cultures, chest x-ray Lactate series change suprapubic catheter Maintain 2 IV bore cannulas Broad-spectrum antibiotics coverage with Zosyn and vancomycin IV fluid bolus and response to monitor, if non responsive then start patient on nor epi and add midodrine considering patient likely dysautonomia Maintain MAP above 65 2. Decubitus ulcer of left hip: CT scan abd pelvis done, showing possible cystitis, decubitus ulcers, for detailed report refer to the imaging section Surgery consult for multiple pressure sores with connecting paths on the buttocks chronic Osteomyelitis of the ischial tuberosities 3. Neurogenic bladder: replace and Maintain Junior's care and catheter care 4. Acute kidney injury: adequate hydration to maintain I/O monitoring dialy renal parameters PDMP PDMP Reviewed: Not Reviewed Attestations 2 Medical Necessity Statement*: Patient will stay more than 2 midnights in the ICU for further management of septic shock with labile blood pressure requiring fluid boluses, CIERRA, and possible acute on chronic osteomyelitis of the pelvis? Time Spent in Patient Care: 16 - 35 minutes (>than 50% of time sp ent in counselling and/or direct pt care on unit) . Critical Care Time: The high probability of a clinically significant, sudden or life threatening deterioration, as referenced in this documentation, required my full and direct attention, intervention and personal management. The critical care time shown is in addition to time spent performing any reported separately billable procedures and includes the following: [x] Data and vital sign review and interpretation [x ] Patient assessment, examination and intervention [x] Medication orders and management [x] Patient/Family updates as able [x] Care Coordination and Documentation. Critical Care Time (min): 35 Coding Level of Care Code Critical Care >/= 30 minutes Diagnoses Septic shock A41.9; R65.21 Decubitus ulcer of left hip L89.229 Neurogenic bladder N31.9 Acute kidney injury N17.9
[2025-06-18] MEDS: HYDROcodone-acetaminophen 5-325 mg Tablet 1 TAB PO (21:39)
[2025-06-18] MEDS: MELATONIN 3 MG TABLET PO (21:39)
[2025-06-18] MEDS: norepinephrine 4 MG/250 ML BAG 7.5 MG IV (23:42)
[2025-06-19] VITALS (99 sets, daily range): BP systolic 54–224; BP diastolic 35–160; PULSE 57–107; RESP 12–28; TEMP 36.5–37.6; O2SAT 91–98; BMI 20.8; BMI 21.5
[2025-06-19] MEDS: piperacillin-tazobactam 3.375 GM in sodium chloride 0.9% (plus) 50 ML IV ×3 (03:20→20:34)
[2025-06-19 04:42] LABS: Hematocrit 34.1 % (37-53); Hemoglobin 10.80 g/dL (11.27-16.99); Mean Corpuscular HGB Conc 31.7 g/dL (30-55); Mean Corpuscular Hemoglobin 25.8 pg (27-33); Mean Corpuscular Volume 81.4 fl (82-101); Nucleated Red Blood Cells % 0 %; Platelet Count 433 10^3/cmm (157-399); Red Blood Count 4.19 10^6/uL (3.85-5.65); White Blood Count 18.03 10^3/uL (3.29-11.43)
[2025-06-19 05:10] LABS: Lactic Sepsis W/Reflex 1.5 mmol/L (0.5-2.2)
[2025-06-19 05:14] LABS: Alanine Aminotransferase 11 U/L (0-41); Albumin Level 2.8 g/dL (3.5-5.2); Alkaline Phosphatase 136 U/L (40-130); Anion Gap 13.4 (5-19); Aspartate Amino Transferase 22 U/L (0-40); Blood Urea Nitrogen 62 mg/dL (8-23); Calcium 8.4 mg/dL (8.5-10.5); Carbon Dioxide 30 mmol/L (22-29); Chloride 102 mmol/L (98-107); Creatinine Clr Calc Pharmacy 95.9250; Globulin 4.1 g/dL (1.3-4.6); Glucose 129 mg/dL (65-115); Osmolality Calculated 313 mOsm/kg (285-295); Potassium 3.4 mmol/L (3.5-5.1); Sodium 142 mmol/L (136-145); Total Protein 6.9 g/dL (6.6-8.7)
[2025-06-19] MEDS: pantoprazole 40 mg SDV IVP (05:43)
[2025-06-19] MEDS: heparin 5,000 unit/mL INJ 1 mL 5000 UNIT SUBCUT ×2 (05:43→17:26)
--- NOTE | 2025-06-19 07:06 | PHA.VACGOAL ---
Vancomycin Goal - Goal Vancomycin Goal:: 15-20 mg/L Vancomycin Indication:: Other - Therapy Current therapy:: Pip/Tazo Day of therpy:: Day []of [] . Actual body weight (kg): 163 lb 2.273 oz - Data Labs: WBC 18.03 10^3/uL (3.29-11.43) H 06/19/25 04:03 RBC 4.19 10^6/uL (3.85-5.65) 06/19/25 04:03 Hgb 10.80 g/dL (11.27-16.99) L 06/19/25 04:03 Hct 34.1 % (37-53) L 06/19/25 04:03 MCV 81.4 fl (82-101) L 06/19/25 04:03 MCH 25.8 pg (27-33) L 06/19/25 04:03 MCHC 31.7 g/dL (30-55) 06/19/25 04:03 RDW 15.4 % (12.1-15.1) H 06/19/25 04:03 Sodium 142 mmol/L (136-145) 06/19/25 04:03 Potassium 3.4 mmol/L (3.5-5.1) L 06/19/25 04:03 Chloride 102 mmol/L (98-107) 06/19/25 04:03 Carbon Dioxide 30 mmol/L (22-29) H 06/19/25 04:03 Anion Gap 13.4 (5-19) 06/19/25 04:03 BUN 62 mg/dL (8-23) H 06/19/25 04:03 Creatinine 0.8 mg/dL (0.7-1.2) 06/19/25 04:03 GFR Calculation 96.1 mL/min (90-130) 06/19/25 04:03 Last dialysis session:: N/A Treatment plan:: new consult Regimen:: NO LOADING DOSE GIVEN. MAINTENANCE DOSE OF 750 MG Q12H STARTED. RENAL FUNCTION HAS IMPROVED, ADJUSTING DOSE TO 1000 MG Q12H. Follow up:: [facility] 06/20 @0600
--- NOTE | 2025-06-19 15:01 | P.PN_ITS ---
Subjective 2 Subjective: Patient was seen in the morning, currently doing well did not voice any complaints Overnight the patient blood pressure was labile, midodrine was started and also intermittently on nor epi Called surgeon for his decubitus ulcers and to follow the plan of care ID also consulted for further management of his chronic osteomyelitis of ischial tuberosity Patient also does not prefer blood products however it is not clear if he is Faith or not? Vitals/I&O/Wt Last Vital Signs Temp 97.9 F 06/19/25 05:30 Pulse 63 06/19/25 12:00 Resp 15 06/19/25 12:00 BP 129/103 06/19/25 12:00 Pulse Ox 94 06/19/25 08:30 O2 Del Method Room Air 06/19/25 08:13 06/19/25 06/19/25 06/19/25 06:59 14:59 22:59 Intake Total 1979.913 / 4812.413 1770 / 1770 Balance 1978.913 / 3562.413 1769 / 0 Weight last 48 hrs Weight 74 kg Weight 71.717 kg Weight 72 kg Weight 74.843 kg Physical Exam 2 Narrative: General: Alert and oriented, lying comfortably without any distress, HEENT: Normocephalic, atraumatic, grossly unremarkable exam Cardio: normal rate rhythm, normal S1-S2 without any murmurs, rubs, or gallops and JVD normal Respiratory: abdomino thoracic pattern of breathing, normal vascular breathing on auscultation without any wheezes, stridor, rhonchi GI: Abdomen soft, nontender, nondistended, normoactive bowel sounds present all 4 quadrants, supra pubic catheter in place with mild pus/slough around the edges Neuro: baseline quadriplegic, but alert and oriented Extremities: palpable pulses, mild trace edema Skin: multiple decubitus ulcers on the buttocks with stool soiling, seems chronic, tissue well-perfused and normal capillary refill, pressure sores on the feet as well mainly on the left foot Urinary Catheter Management: Suprapubic: Cath Placed During This Visit: yes Reason for Continuing Indwelling Catheter: Chronic Indwelling Urinary Catheter on Admission Urinary Catheter Date of Insertion: 06/19/25 Urinary Catheter Time of Insertion: 00:45 Data 06/19/25 04:03 06/19/25 04:03 Micro: Microbiology 06/18/25 13:51 Blood Culture - Preliminary Blood NEGATIVE TO DATE 06/18/25 13:57 Blood Culture - Preliminary Blood NEGATIVE TO DATE 06/18/25 14:29 Urine Culture - Preliminary Urine,Clean Catch Gram Negative Rods Gram Negative Rods#2 A&P Assessment and plan 1. Septic shock: 2 sets of blood cultures prelim negative, urine cultures showing gram-negative rods and to follow final cultures and sensitivity Chest x-ray was unremarkable for any infiltrates Lactate series showed normal lactate Changed suprapubic catheter and continue catheter care Maintain 2 IV bore cannulas Broad-spectrum antibiotics coverage with Zosyn and vancomycin Continue IV fluids, Nor epi as needed and midodrine Maintain MAP above 65 2. Decubitus ulcer of left hip: CT scan abd pelvis done, showing possible cystitis, decubitus ulcers, for detailed report refer to the imaging section Surgery consult for multiple pressure sores with connecting paths on the buttocks, verbal recommended for conservative management. chronic Osteomyelitis of the ischial tuberosities, ID consulted and to follow the plan of care 3. Neurogenic bladder: Maintain suprapubic catheter care 4. Acute kidney injury: Currently improving, adequate hydration to maintain I/O monitoring dialy renal parameters PDMP PDMP Reviewed: Not Reviewed Attestations 2 Medical Necessity Statement*: Patient will stay more than 2 midnights for the management of septic shock secondary to UTI versus skin/soft tissue infection of the infected decubitus ulcer versus chronic osteomyelitis requiring ID and surgery on board Time Spent in Patient Care: Greater than 35 minutes (>than 50% of time spent in counselling and/or direct pt care on unit) . Critical Care Time: The high probability of a clinically significant, sudden or life threatening deterioration, as referenced in this documentation, required my full and direct attention, intervention and personal management. The critical care time shown is in addition to time spent performing any reported separately billable procedures and includes the following: [x] Data and vital sign review and interpretation [x ] Patient assessment, examination and intervention [x] Medication orders and management [x] Patient/Family updates as able [x] Care Coordination and Documentation. Critical Care Time (min): 36 Other Attestations: Patient condition has been discussed at length with the patient/family, I have independently reviewed the chart labs imaging/diagnostics/EKG. the goals of care and code status with the patient/family/NOK/legal traffic representative, and documented accordingly. I have reconciled the medications after confirmation/comorbidities/current clinical condition. The management has been done according to the current clinical condition with respect to patient goals of care and based on recommendations/guidelines. The patient/family has been informed about the current condition and further plan of care. Agreed with the plan of care and understood without any language barrier. Every effort was made to ensure accuracy of washing machine loader. Any obvious errors or omissions should be clarified with the author of the document. Coding Level of Care Code Critical Care >/= 30 minutes Diagnoses Septic shock A41.9; R65.21 Decubitus ulcer of left hip L89.229 Neurogenic bladder N31.9 Acute kidney injury N17.9
--- NOTE | 2025-06-19 17:28 | PM.CONSULT ---
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 He does not have sensation where pressure sores are at. It appears he had had flaps at sacrum that shows intact skin and near ischial/upper femur sores that are not grossly infected. He is seen weekly on tuesday at wound clinic and he states he has had dressing changes daily and wounds are stable and not getting worse or appreciably better. He has open areas about 3-4 cm on both ischial areas with epitheliazation and some undermining 1-2 cm right greater than left. Ulcers appears to go down to periosteal tissue in areas but less than 2-3 cm. He comes in with fever but not SOB and positive for covid. He is on low pressure air mechanical air mattress. He has suprapubic urinary catheter and has BM per anus about every few days. Review of Systems Narrative: Constitutional: denies rigors, singnificant weight gain, increased appetite HEENT: denies chronic cough, blurry vision, excessive tearing, eye pain, flashing lights, odynophagia, painful mastication, change in voice, change in taste, chronic sore throat, hypersalivation Heart: denies racing heart, palpitations, othropnea, PND Lungs: denies hemoptysis, pain with deep inspiration, chronic bronchitis GI: denies hematemesis, hematochezia, dysphagia, tenesmus : denies polyuria, hematuria Musculoskeletal: denies hemarthrosis Neuro: denies new onset syncope, ptosis eyelid or face SKin: denies new onset hyperalgia, new rash new cyanosis Endocrine: denies new polyuria, polydipsia, polyphagia, heat intolerance, excessive energy Hem/Onc: denies new petechiae, swollen glands, new excessive epstaxis Psych: denies racing thought Medications/Allergies Home Medications ?Medication ?Instructions ?Recorded ?Confirmed ?Last Taken ?Type acetaminophen 325 mg tablet 650 mg PO Q6H PRN Pain 07/17/19 06/19/25 06/18/25 03:55 History (Tylenol) baclofen 10 mg tablet 10 mg PO TID 07/17/19 06/19/25 06/18/25 09:40 History bisacodyl 10 mg rectal suppository 10 mg HI QDAY PRN Constipation 07/17/19 06/19/25 Unknown History (Dulcolax (bisacodyl)) magnesium hydroxide 400 mg/5 mL 5 ml PO QDAY PRN Constipation 07/17/19 06/19/25 06/14/25 08:15 History oral suspension (Milk of Magnesia) melatonin 5 mg capsule 5 mg PO DAILY 07/17/19 06/19/25 06/17/25 20:15 History multivitamin with iron 1 tab PO QDAY 07/17/19 06/19/25 Unknown History tramadol 50 mg tablet 50 mg PO Q8H PRN Pain 07/17/19 06/19/25 06/18/25 09:40 History polyethylene glycol 3350 17 17 g PO DAILY PRN Constipation 05/28/21 06/19/25 06/17/25 20:05 History gram/dose oral powder (Miralax) bismuth subsalicylate 262 mg/15 mL 524 mg PO Q1H PRN UPSET STOMACH 02/04/22 06/19/25 Unknown History oral suspension (Pepto-Bismol) sodium phosphates 19 gram-7 118 ml HI DAILY PRN Constipation 02/04/22 06/19/25 Unknown History gram/118 mL enema (Fleet Enema) citric ac 1980.6 mg-glucono 59.4 30 ml irrigation DAILY 06/19/25 06/19/25 06/18/25 10:35 History mg-mag carb 980.4 mg/30 mL irrig.soln (Renacidin) nitrofurantoin 100 mg PO BID 06/19/25 06/19/25 06/18/25 09:40 History monohydrate/macrocrystals 100 mg capsule sennosides 8.6 mg-docusate sodium 1 tab-cap PO DAILY 06/19/25 06/19/25 06/09/25 20:25 History 50 mg tablet (Stool Softener-Laxative) tramadol 50 mg tablet 100 mg PO BEDTIME 06/19/25 06/19/25 06/17/25 20:20 History Allergies Allergy/AdvReac Type Severity Reaction Status Date / Time vancomycin Allergy NA Verified 02/04/22 14:36 Current Medications Generic Name Dose Route Start Last Admin Trade Name Freq PRN Reason Stop Dose Admin Hydrocodone Bitart/Acetaminophen 1 tab 06/18/25 18:27 06/18/25 21:39 Hydrocodone-Acetaminophen 5-325 Mg Tablet PO 1 tab Q4H PRN Administration MODERATE PAIN Baclofen 10 mg 06/18/25 21:00 06/19/25 12:03 Baclofen 10 Mg Tablet PO 10 mg TID STEPHAN Administration Heparin Sodium (Porcine) 5,000 unit 06/18/25 18:30 06/19/25 17:26 Heparin 5,000 Unit/Ml Inj 1 Ml SUBCUT 5,000 unit Q12H STEPHAN Administration Lactated Ringer's 1,000 mls @ 150 mls/hr 06/18/25 18:30 06/19/25 15:07 Lactated Ringers IV 06/19/25 18:29 Not Given .Q6H40M STEPHAN Piperacillin Sod/Tazobactam 50 mls @ 12.5 mls/hr 06/18/25 20:00 06/19/25 17:01 Sod 3.375 gm/ Sodium Chloride IV Infused Q8H STEPHAN Infusion Protocol Norepinephrine Bitartrate 4 mg in 250 mls @ 0 mls/hr 06/18/25 23:30 06/19/25 04:00 Levophed IV 0 mcg/min .Q0M STEPHAN 0 mls/hr Protocol Titration Per Protocol Melatonin 3 mg 06/18/25 21:00 06/18/25 21:39 Melatonin 3 Mg Tablet PO 3 mg BEDTIME STEPHAN Administration Midodrine 10 mg 06/18/25 23:28 06/19/25 12:03 Midodrine 5 Mg Tablet PO 10 mg TID STEPHAN Administration Pantoprazole Sodium 40 mg 06/19/25 05:00 06/19/25 05:43 Pantoprazole 40 Mg Sdv IVP 40 mg DAILY STEPHAN Administration Senna 17.2 mg 06/18/25 21:00 06/18/25 20:21 Sennosides 8.6 Mg Tablet PO 17.2 mg BEDTIME STEPHAN Administration Sertraline HCl 50 mg 06/19/25 05:00 06/19/25 05:42 Sertraline 50 Mg Tablet PO 50 mg DAILY STEPHAN Administration PFSH Acute PFSH: Medical History (Updated 06/19/25 @ 17:43 by Harshal Malhotra MD) History of chronic urinary tract infection Quadriplegia, unspecified Neurogenic bladder Bladder calculus Surgical History History of back surgery Family History Father , 86 CAD (coronary artery disease) Mother Diabetes Social History Smoking and tobacco/nicotine status: never used tobacco/nicotine Alcohol intake: never Substance/Drug Use: never Adopted: No Caregiver/support person: No Lives independently: No Marital status: Single Current occupational status: disabled Vitals/I&O/Wt Last Vital Signs Temp 98.6 F 06/19/25 16:30 Pulse 63 06/19/25 16:30 Resp 19 H 06/19/25 16:30 BP 100/56 06/19/25 16:30 Pulse Ox 91 06/19/25 15:15 O2 Del Method Room Air 06/19/25 08:13 06/19/25 06/19/25 06/19/25 06:59 14:59 22:59 Intake Total 1978.913 / 4812.413 1770 / 1770 540 / 2310 Balance 1978.913 / 3562.413 1770 / 1770 540 / 2310 Weight last 48 hrs Weight 163 lb 2.273 oz Weight 158 lb 1.76 oz Weight 158 lb 11.725 oz Weight 165 lb Physical Exam Narrative: Patient is a well developed well nourished and in NAD and is afebrile with vitals stable and is answering questions appropriately with a normal affect and is alert and oriented x3 HEENT: normocephalic with normal external ears and nonicteric, oral mucosa moist and dentition normal for age, trachea midline with no large masses visualized Heart: RRR, no gallops murmurs or rubs, normal PMI with no thrills Lungs: normal excursions, no loud audible wheezing, no subcutaneous emphysema Abdomen: nondistended, no gross hepatosplenomegaly, no masses, no rigidity or rebound, no loud borborygmi Neuro: quadriplegic Musculoskeletal: quadriplegic Skin: pink warm and dry with no rashes or ecchymosis Vascular: good radial pulses, no ulceration, less than 2 second capillary refill in hand : deferred Pressure sores: see HPI for desciption of ulcers Urinary Catheter Management: Suprapubic: Cath Placed During This Visit: yes Reason for Continuing Indwelling Catheter: Chronic Indwelling Urinary Catheter on Admission Urinary Catheter Date of Insertion: 06/19/25 Urinary Catheter Time of Insertion: 00:45 Data 06/19/25 04:03 06/19/25 04:03 Micro: Microbiology 06/18/25 13:51 Blood Culture - Preliminary Blood NEGATIVE TO DATE 06/18/25 13:57 Blood Culture - Preliminary Blood NEGATIVE TO DATE 06/18/25 14:29 Urine Culture - Preliminary Urine,Clean Catch Gram Negative Rods Gram Negative Rods#2 A&P Assessment and plan 1. Decubitus ulcer of left hip: 2. Quadriplegia, unspecified: 3. Decubitus ulcer of ischial area: Plan: Patient can resume dressing changes he is used to. He may have been on hydrofera blue doam changed daily and kept moist with saline bid or just wet to dry mesh guaze dressing changes. Other options would be saline soaked aquacel AG ribbon changed daily or silver calcim alginate wound pads soaked in saline. You can wash wound daily or if gets soiled with feces with hibiclens soap and water or vashe wash or periwash. He does not have significant need for debridement. Wound is clean and I do not think he needs debridement creams or applications of santyl or coloplast triad cream daily. He is not sick from his ulcers. PDMP PDMP Reviewed: Not Reviewed Coding Level of Care Code Acute Code for [facility] Diagnoses Decubitus ulcer of left hip L89.229 Quadriplegia, unspecified G82.50 Decubitus ulcer of ischial area L89.309
--- NOTE | 2025-06-19 18:30 | PM.CONSULT ---
Providers/Reason For Consult Consulting Physician/Specialty*: Shahida Dougherty MD/Infectious Disease Reason for Consult*: sepsis, UTI , chronic suprapubic cronin catheter Requesting Physician: Ang Neal MD Attending Physician: Ang Neal MD Primary Care Provider: Bereket Dickson DO History of Present Illness History of Present Illness Curtis Carrera is a 69 year old male long term resident, paraplegia with chronic decubitus sacral wound and chronic sacral osteomyelitis, last treated with iv abx per patient 5 months ago. He is currently a NH resident and undergoes wound care at [facility]. Also with h/o chronic suprapubic catheter which has had issues with thick discharge with obstruction intermittently requiring flushes. He was followed by Dr. Tenorio here until his detention for recurring nephrolithiasis. He is currently admitted here since 06/18 after presenting for fever, chills and labile BP. He required pressor support with levophed and was admitted to the ICU. He tested + for COVID 19, Cxr is not showing any infiltrates. Denies any diarrhea, nausea or vomiting Review of Systems General: Reports: 10 or more systems reviewed and unremarkable except in HPI and below Const: Denies: fever(s), chills or body aches Eyes: Denies: change in vision, blurry vision or photophobia ENMT: Reports: hoarseness; Denies: throat pain, enlarged tonsils, odynophagia or nasal congestion Card: Denies: chest pain, palpitations, irregular heart rhythm, edema, swelling of feet/ankles, lightheadedness, pre-syncope, dyspnea on exertion or orthopnea Resp: Denies: dyspnea, productive cough, non-productive cough, wheezing, stridor, pain on inspiration, change in phlegm color, hemoptysis or chest congestion GI: Denies: abdominal pain, nausea, vomiting, hematemesis, coffee ground emesis, dysphagia, heartburn, diarrhea, constipation, GI cramping, change in stool character, hematochezia or melena : Denies: flank pain, dysuria, urinary frequency, urinary urgency, urinary hesitancy or hematuria Musc: Denies: neck pain, back pain, extremity pain, joint swelling, joint warmth or deformity Neuro: Denies: headache(s), numbness in extremities, weakness in extremities, sensory changes, difficulty walking, frequent falls, dizziness, vertigo, behavioral changes, Slurred speech present or seizure-like activity Psych: Denies: anxiety, depression, suicidal ideation or homicidal ideation Endo: Denies: polyuria, polydipsia, tired all the time, cold intolerance or hot flashes Luis/Lymph: Denies: easy bruising or easy bleeding Medications/Allergies Home Medications ?Medication ?Instructions ?Recorded ?Confirmed ?Last Taken ?Type acetaminophen 325 mg tablet 650 mg PO Q6H PRN Pain 07/17/19 06/19/25 06/18/25 03:55 History (Tylenol) baclofen 10 mg tablet 10 mg PO TID 07/17/19 06/19/25 06/18/25 09:40 History bisacodyl 10 mg rectal suppository 10 mg IA QDAY PRN Constipation 07/17/19 06/19/25 Unknown History (Dulcolax (bisacodyl)) magnesium hydroxide 400 mg/5 mL 5 ml PO QDAY PRN Constipation 07/17/19 06/19/25 06/14/25 08:15 History oral suspension (Milk of Magnesia) melatonin 5 mg capsule 5 mg PO DAILY 07/17/19 06/19/25 06/17/25 20:15 History multivitamin with iron 1 tab PO QDAY 07/17/19 06/19/25 Unknown History tramadol 50 mg tablet 50 mg PO Q8H PRN Pain 07/17/19 06/19/25 06/18/25 09:40 History polyethylene glycol 3350 17 17 g PO DAILY PRN Constipation 05/28/21 06/19/25 06/17/25 20:05 History gram/dose oral powder (Miralax) bismuth subsalicylate 262 mg/15 mL 524 mg PO Q1H PRN UPSET STOMACH 02/04/22 06/19/25 Unknown History oral suspension (Pepto-Bismol) sodium phosphates 19 gram-7 118 ml IA DAILY PRN Constipation 02/04/22 06/19/25 Unknown History gram/118 mL enema (Fleet Enema) citric ac 1980.6 mg-glucono 59.4 30 ml irrigation DAILY 06/19/25 06/19/25 06/18/25 10:35 History mg-mag carb 980.4 mg/30 mL irrig.soln (Renacidin) nitrofurantoin 100 mg PO BID 06/19/25 06/19/25 06/18/25 09:40 History monohydrate/macrocrystals 100 mg capsule sennosides 8.6 mg-docusate sodium 1 tab-cap PO DAILY 06/19/25 06/19/25 06/09/25 20:25 History 50 mg tablet (Stool Softener-Laxative) tramadol 50 mg tablet 100 mg PO BEDTIME 06/19/25 06/19/25 06/17/25 20:20 History Allergies Allergy/AdvReac Type Severity Reaction Status Date / Time vancomycin Allergy NA Verified 02/04/22 14:36 Current Medications Generic Name Dose Route Start Last Admin Trade Name Freq PRN Reason Stop Dose Admin Hydrocodone Bitart/Acetaminophen 1 tab 06/18/25 18:27 06/18/25 21:39 Hydrocodone-Acetaminophen 5-325 Mg Tablet PO 1 tab Q4H PRN Administration MODERATE PAIN Baclofen 10 mg 06/18/25 21:00 06/19/25 12:03 Baclofen 10 Mg Tablet PO 10 mg TID STEPHAN Administration Heparin Sodium (Porcine) 5,000 unit 06/18/25 18:30 06/19/25 17:26 Heparin 5,000 Unit/Ml Inj 1 Ml SUBCUT 5,000 unit Q12H STEPHAN Administration Piperacillin Sod/Tazobactam 50 mls @ 12.5 mls/hr 06/18/25 20:00 06/19/25 17:01 Sod 3.375 gm/ Sodium Chloride IV Infused Q8H STEPHAN Infusion Protocol Norepinephrine Bitartrate 4 mg in 250 mls @ 0 mls/hr 06/18/25 23:30 06/19/25 04:00 Levophed IV 0 mcg/min .Q0M STEPHAN 0 mls/hr Protocol Titration Per Protocol Vancomycin HCl 1,000 mg/ 250 mls @ 250 mls/hr 06/19/25 19:00 06/19/25 18:02 Sodium Chloride IV 250 mls/hr Q12H STEPHAN Administration Melatonin 3 mg 06/18/25 21:00 06/18/25 21:39 Melatonin 3 Mg Tablet PO 3 mg BEDTIME STEPHAN Administration Midodrine 10 mg 06/18/25 23:28 06/19/25 12:03 Midodrine 5 Mg Tablet PO 10 mg TID STEPHAN Administration Pantoprazole Sodium 40 mg 06/19/25 05:00 06/19/25 05:43 Pantoprazole 40 Mg Sdv IVP 40 mg DAILY STEPHAN Administration Senna 17.2 mg 06/18/25 21:00 06/18/25 20:21 Sennosides 8.6 Mg Tablet PO 17.2 mg BEDTIME STEPHAN Administration Sertraline HCl 50 mg 06/19/25 05:00 06/19/25 05:42 Sertraline 50 Mg Tablet PO 50 mg DAILY STEPHAN Administration PFSH Acute PFSH: Medical History History of chronic urinary tract infection Quadriplegia, unspecified Neurogenic bladder Bladder calculus Surgical History History of back surgery Family History Father , 86 CAD (coronary artery disease) Mother Diabetes Social History Smoking and tobacco/nicotine status: never used tobacco/nicotine Alcohol intake: never Substance/Drug Use: never Adopted: No Caregiver/support person: No Lives independently: No Marital status: Single Current occupational status: disabled Vitals/I&O/Wt Last Vital Signs Temp 98.6 F 06/19/25 16:30 Pulse 82 06/19/25 18:00 Resp 25 H 06/19/25 18:00 BP 117/97 06/19/25 18:00 Pulse Ox 91 06/19/25 15:15 O2 Del Method Room Air 06/19/25 08:13 06/19/25 06/19/25 06/19/25 06:59 14:59 22:59 Intake Total 1978.913 / 4812.413 1769 / 1769 540 / 2310 Balance 1978. / 3562.413 1769 540 / 2310 Weight last 48 hrs Weight 74 kg Weight 71.717 kg Weight 72 kg Weight 74.843 kg Physical Exam Narrative: Assessed via telehealth no acute distress, laying in bed, awake alert and oriented BP noted to be fluctuating betweent SBP 80s to 190s Ext: paraplegia at baseline EXT: Site of suprapubic cathter currently without discharge or signs of cellulitis. Urinary Catheter Management: Suprapubic: Cath Placed During This Visit: yes Reason for Continuing Indwelling Catheter: Accurate Measurement of Urinary Output in Critically Ill Patients Urinary Catheter Date of Insertion: 06/19/25 Urinary Catheter Time of Insertion: 00:45 Data 06/20/25 03:31 06/20/25 03:31 Micro: Microbiology 06/18/25 13:51 Blood Culture - Preliminary Blood NEGATIVE TO DATE 06/18/25 13:57 Blood Culture - Preliminary Blood NEGATIVE TO DATE 06/18/25 14:29 Urine Culture - Preliminary Urine,Clean Catch Gram Negative Rods Gram Negative Rods#2 Other data: Radiology Impressions Chest X-Ray 06/18/25 14:38 Impression: Atherosclerosis. Abdomen/Pelvis CT 06/18/25 15:38 IMPRESSION: 1. Urinary bladder decompressed around a suprapubic catheter balloon. There is thickening of the wall and intraluminal air likely related to the suprapubic catheter, however cystitis cannot be excluded. There are 3 large bladder calcifications which are new since July 31, 2019. 2. [id number] bilateral hydroureteronephrosis. Small bilateral renal stones are present. No obstructing ureteral stone is seen. 3. Copious amount of fecal material in the rectosigmoid region with a mild amount of fecal material throughout the remainder of the colon. 4. Bilateral decubitus ulcers extending to the ischial tuberosities bilaterally with increased sclerosis in the ischial tuberosities suspicious for chronic osteomyelitis. These findings have progressed since July 31, 2019. If clinically indicated, MRI may be helpful for further evaluation. 5. 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 COMMENTS: For patients with an IVC filter, recommend assessment for a management plan for the patient's IVC filter. If there is no established management plan, recommend referral to an interventional clinician on a nonemergent basis for evaluation. Laboratory Results WBC 22.48 10^3/uL (3.29-11.43) H 06/20/25 03:31 RBC 4.31 10^6/uL (3.85-5.65) 06/20/25 03:31 Hgb 11.10 g/dL (11.27-16.99) L 06/20/25 03:31 Hct 35.5 % (37-53) L 06/20/25 03:31 MCV 82.4 fl (82-101) 06/20/25 03:31 MCH 25.8 pg (27-33) L 06/20/25 03:31 MCHC 31.3 g/dL (30-55) 06/20/25 03:31 RDW 15.8 % (12.1-15.1) H 06/20/25 03:31 Plt Count 506 10^3/cmm (157-399) H 06/20/25 03:31 MPV 8.8 fL (7.4-10.4) 06/20/25 03:31 Neut % (Auto) 73.1 % 06/20/25 03:31 Lymph % (Auto) 14.4 % 06/20/25 03:31 Randall % (Auto) 6.5 % 06/20/25 03:31 Eos % (Auto) 0.7 % 06/20/25 03:31 Baso % (Auto) 0.4 % 06/20/25 03:31 Neut # (Auto) 16.42 10^3/uL (1.8-7.7) H 06/20/25 03:31 Lymph # (Auto) 3.2 10^3/uL (0.8-4.8) 06/20/25 03:31 Randall # (Auto) 1.5 10^3/uL (0.2-0.9) H 06/20/25 03:31 Eos # (Auto) 0.2 10^3/uL (0.0-0.8) 06/20/25 03:31 Baso # (Auto) 0.1 10^3/uL (0.0-0.1) 06/20/25 03:31 Nucleated RBC % (auto) 0 % 06/20/25 03:31 Nucleated RBCs # 0.0 /100WBC 06/20/25 03:31 ESR > 120 mm/hr (0-10) H 06/18/25 13:51 Sodium 144 mmol/L (136-145) 06/20/25 03:31 Potassium 3.5 mmol/L (3.5-5.1) 06/20/25 03:31 Chloride 107 mmol/L (98-107) 06/20/25 03:31 Carbon Dioxide 26 mmol/L (22-29) 06/20/25 03:31 Anion Gap 14.5 (5-19) 06/20/25 03:31 BUN 27 mg/dL (8-23) H 06/20/25 03:31 Creatinine 0.8 mg/dL (0.7-1.2) 06/20/25 03:31 GFR Calculation 96.1 mL/min (90-130) 06/20/25 03:31 Glucose 94 mg/dL (65-115) 06/20/25 03:31 Calculated Osmolality 303 mOsm/kg (285-295) H 06/20/25 03:31 Lactic Acid 1.5 mmol/L (0.5-2.2) 06/19/25 04:03 Calcium 8.9 mg/dL (8.5-10.5) 06/20/25 03:31 Phosphorus 1.5 mg/dL (2.5-4.5) L 06/20/25 03:31 Magnesium 2.0 mg/dL (1.7-2.3) 06/20/25 03:31 Total Bilirubin 0.4 mg/dL (0.15-1.2) 06/20/25 03:31 AST 16 U/L (0-40) 06/20/25 03:31 ALT 12 U/L (0-41) 06/20/25 03:31 Alkaline Phosphatase 98 U/L (40-130) 06/20/25 03:31 C-Reactive Protein 159.9 mg/L (0.0-4.9) H 06/18/25 13:51 Total Protein 7.5 g/dL (6.6-8.7) 06/20/25 03:31 Albumin 2.9 g/dL (3.5-5.2) L 06/20/25 03:31 Globulin 4.6 g/dL (1.3-4.6) 06/20/25 03:31 Urine Color Cancelled 06/18/25 14:29 Urine Color [place] (Yellow) A 06/18/25 14:29 Urine Appearance Cancelled 06/18/25 14:29 Urine Appearance Turbid (CLEAR) A 06/18/25 14: Urine pH 8.5 (5-7) A 06/18/25 14: Urine pH Cancelled 06/18/25 14:29 Ur Specific [place] 1.014 (1.005-1.030) 06/18/25 14:29 Ur Specific [place] Cancelled 06/18/25 14: Urine Protein 2+ (Negative) A 06/18/25 14: Urine Protein Cancelled 06/18/25 14:29 Urine Glucose (UA) Cancelled 06/18/25 14:29 Urine Glucose (UA) Negative (Normal) 06/18/25 14:29 Urine Ketones Cancelled 06/18/25 14: Urine Ketones Trace (Negative) 06/18/25 14: Urine Blood 3+ (Negative) A 06/18/25 14: Urine Blood Cancelled 06/18/25 14:29 Urine Nitrate Cancelled 06/18/25 14: Urine Nitrate Positive (Negative) A 06/18/25 14: Urine Bilirubin Cancelled 06/18/25 14: Urine Bilirubin Negative (Negative) 06/18/25 14:29 Prot Sulfosalicylic Acd Cancelled 06/18/25 14:29 Urine Urobilinogen 0.2 mg/dL (Negative) 06/18/25 14:29 Urine Urobilinogen Cancelled 06/18/25 14:29 Ur Leukocyte Esterase 3+ (Negative) A 06/18/25 14:29 Ur Leukocyte Esterase Cancelled 06/18/25 14:29 Urine RBC >100 /hpf (0-2) H 06/18/25 14:29 Urine RBC Cancelled 06/18/25 14:29 Urine WBC >100 /hpf (0-5) H 06/18/25 14:29 Urine WBC Cancelled 06/18/25 14:29 Ur Squamous Epith Cells 6-10 /hpf (0-5) 06/18/25 14:29 Ur Squamous Epith Cells Cancelled 06/18/25 14:29 Ur Transition Epith Cell Cancelled 06/18/25 14:29 Ur Renal Epithelial Cell Cancelled 06/18/25 14:29 Calcium Oxalate Crystal Cancelled 06/18/25 14:29 Uric Acid Crystals Cancelled 06/18/25 14:29 Triple Phos Crystals Cancelled 06/18/25 14:29 Other Crystals Cancelled 06/18/25 14:29 Amorphous Sediment 2+ /hpf 06/18/25 14:29 Amorphous Sediment Cancelled 06/18/25 14:29 Urine Bacteria 4+ /hpf (NONE) H 06/18/25 14:29 Urine Bacteria Cancelled 06/18/25 14:29 Hyaline Casts 73.42 /lpf 06/18/25 14:29 Hyaline Casts Cancelled 06/18/25 14:29 Fine Granular Casts Cancelled 06/18/25 14:29 Coarse Granular Casts Cancelled 06/18/25 14:29 RBC Casts Cancelled 06/18/25 14:29 Other Casts Cancelled 06/18/25 14:29 Urine Mucus Cancelled 06/18/25 14:29 Urine Trichomonas Cancelled 06/18/25 14:29 Urine Yeast Cancelled 06/18/25 14:29 Urine Sperm Cancelled 06/18/25 14:29 Ur Oval Fat Bodies Cancelled 06/18/25 14:29 Vancomycin Trough 15.3 ug/mL (10-15) H 06/20/25 05:40 Influenza A (PCR) Negative (Negative) 06/18/25 17:01 Influenza Type B (PCR) Negative (Negative) 06/18/25 17:01 RSV (PCR) Negative (Negative) 06/18/25 17:01 SARS-CoV-2 (PCR) Positive (Negative) A 06/18/25 17:01 Blood Type A Positive 06/18/25 14:56 Rho(D) Type Rh positive 06/18/25 14:56 Antibody Screen Negative 06/18/25 14:56 A&P Assessment and plan 1. Chronic osteomyelitis, pelvis: 2. UTI (urinary tract infection): 3. Suprapubic catheter dysfunction: 4. Bladder calculus: 5. Hydroureteronephrosis: Plan: 69 year old male with paraplegia, chronic sacral osteomyelitis, neurogenic bladder with h/o recurrent nephrolithiasis currently admitted with fever , chills, labile BP and h/o recent intermittent blockage of suprapubic catheter needing frequent flushing. Sacral wound assessed by genral surgery ,no current indication for debridement , continue wound care per [place] directions. Pelvic osteomyelitis dates back to at least 2019, he was most recently treated with iv abx 5 months ago per patient. There is no current inidcation for treating with iv abx. In patients with chronic pelvic osteomyelitis associated with decubitus ulcers, there is no additional benefit to repeat courses of iv abx. CT abdomen and pelvis with 3 bladdder calculi Noted b/L hydroureteronephrosis without obvious obstructing calculi URine cx shows 2 colonies of GNR, prior urine cx with ESBL Proteus mirabilis WBC noted worsening change zosyn to iv meropenem 1 g iv q8h given past susceptibilities Monitor for improvement in leukocytosis, clinical improvement If continues to have persistent leukocytosis in spite of appropriate coverage, will need urology assessment given hydronepnrosis blood cx negative thus far will follow PDMP PDMP Reviewed: Not Reviewed Coding Level of Care Code Acute Code for g Fwd Diagnoses Chronic osteomyelitis, pelvis M86.659 UTI (urinary tract infection) N39.0 Suprapubic catheter dysfunction T83.010A Bladder calculus N21.0 Hydroureteronephrosis N13.30
--- NOTE | 2025-06-19 18:39 | PC.NURSE ---
Addendum entered by Janneth Abarca RN 06/19/25 18:47: Order canceled. Fluids stopped. Original Note: Dr. Carreon rounding earlier in shift gave verbal orders to decrease fluids to 100mLs an hour, fluids decreased in room and on aug, still awaiting orders.
[2025-06-19] MEDS: MELATONIN 3 MG TABLET PO (20:34)
[2025-06-20] VITALS (96 sets, daily range): BP systolic 63–223; BP diastolic 38–158; PULSE 63–97; RESP 13–29; TEMP 37.1–37.7; O2SAT 91–100; BMI 21.4
[2025-06-20 03:52] LABS: Hematocrit 35.5 % (37-53); Hemoglobin 11.10 g/dL (11.27-16.99); Mean Corpuscular HGB Conc 31.3 g/dL (30-55); Mean Corpuscular Hemoglobin 25.8 pg (27-33); Mean Corpuscular Volume 82.4 fl (82-101); Nucleated Red Blood Cells % 0 %; Platelet Count 506 10^3/cmm (157-399); Red Blood Count 4.31 10^6/uL (3.85-5.65); White Blood Count 22.48 10^3/uL (3.29-11.43)
[2025-06-20] MEDS: piperacillin-tazobactam 3.375 GM in sodium chloride 0.9% (plus) 50 ML IV (03:59)
[2025-06-20 04:12] LABS: Alanine Aminotransferase 12 U/L (0-41); Albumin Level 2.9 g/dL (3.5-5.2); Alkaline Phosphatase 98 U/L (40-130); Anion Gap 14.5 (5-19); Aspartate Amino Transferase 16 U/L (0-40); Blood Urea Nitrogen 27 mg/dL (8-23); Calcium 8.9 mg/dL (8.5-10.5); Carbon Dioxide 26 mmol/L (22-29); Chloride 107 mmol/L (98-107); Globulin 4.6 g/dL (1.3-4.6); Glucose 94 mg/dL (65-115); Magnesium 2.0 mg/dL (1.7-2.3); Osmolality Calculated 303 mOsm/kg (285-295); Potassium 3.5 mmol/L (3.5-5.1); Sodium 144 mmol/L (136-145); Total Protein 7.5 g/dL (6.6-8.7)
[2025-06-20] MEDS: pantoprazole 40 mg SDV IVP (05:17)
[2025-06-20] MEDS: heparin 5,000 unit/mL INJ 1 mL 5000 UNIT SUBCUT ×2 (06:04→17:21)
[2025-06-20] MEDS: meropenem 1,000 mg SDV 1000 MG IVP ×3 (07:30→23:57)
--- NOTE | 2025-06-20 15:45 | PM.PN ---
Subjective Subjective: Patient was seen in the morning and his wounds as well which were being taken care of by the nurses., currently doing well. Did not voice any complaints and feels better. His blood pressure is quite labile due to dysautonomia and gets down with MAP of less than 65 and by itself gets above 75 or 80 as well without any intervention and the patient remains asymptomatic Patient does not want any blood products not sure if Restorationism? No surgical intervention for his decubitus ulcers ID consulted and appreciated the further recommendation Vitals/I&O/Wt Last Vital Signs Temp 98.8 F 06/20/25 14:00 Pulse 73 06/20/25 15:15 Resp 23 H 06/20/25 15:15 BP 113/79 06/20/25 15:15 Pulse Ox 96 06/20/25 15:15 O2 Del Method Room Air 06/20/25 12:00 06/20/25 06/20/25 06/20/25 06:59 14:59 22:59 Intake Total 50 / 3436.667 735 / 735 Output Total 650 / 650 Balance 50 / 3086.667 735 / 735 -650 / 85 Weight last 48 hrs Weight 73.709 kg Weight 74 kg Weight 71.717 kg Weight 72 kg Physical Exam Narrative: General: Alert and oriented, lying comfortably without any distress, HEENT: Normocephalic, atraumatic, grossly unremarkable exam Cardio: normal rate rhythm, normal S1-S2 without any murmurs, rubs, or gallops and JVD normal Respiratory: abdomino thoracic pattern of breathing, normal vascular breathing on auscultation without any wheezes, stridor, rhonchi GI: Abdomen soft, nontender, nondistended, normoactive bowel sounds present all 4 quadrants, supra pubic catheter in place and is clean (changed in this admission) Neuro: baseline quadriplegic, but alert and oriented Extremities: palpable pulses, mild trace edema Skin: multiple decubitus ulcers on the buttocks with stool soiling, seems chronic, tissue well-perfused and normal capillary refill, pressure sores on the feet as well mainly on the left foot Urinary Catheter Management: Suprapubic: Cath Placed During This Visit: yes Reason for Continuing Indwelling Catheter: Chronic Indwelling Urinary Catheter on Admission Urinary Catheter Date of Insertion: 06/19/25 Urinary Catheter Time of Insertion: 00:45 Data 06/20/25 03:31 06/20/25 03:31 Micro: Microbiology 06/18/25 14:29 Urine Culture - Preliminary Urine,Clean Catch Gram Negative Rods Gram Negative Rods#2 06/18/25 13:51 Blood Culture - Preliminary Blood NEGATIVE TO DATE 06/18/25 13:57 Blood Culture - Preliminary Blood NEGATIVE TO DATE A&P Assessment and plan 1. Septic shock: 2 sets of blood cultures prelim negative, urine cultures showing gram-negative rods and to follow final cultures and sensitivity Chest x-ray was unremarkable for any infiltrates Lactate series showed normal lactate Changed suprapubic catheter and continue catheter care Maintain 2 IV bore cannulas Broad-spectrum antibiotics coverage with meropenem and vancomycin as per ID recommendation ID further recommended that his wounds looks old and chronic and if his counts did not improve then consider renal ultrasound considering he has bilateral hydronephrosis which was not present in the previous scans and he may need further intervention/transfer in the urology services for better management of this acute condition that might be the cause of his presentation with sepsis? Continue IV fluids, Nor epi as needed and midodrine continue Maintain MAP above 65 2. Decubitus ulcer of left hip: CT scan abd pelvis done, showing possible cystitis, decubitus ulcers, for detailed report refer to the imaging section Surgery consult for multiple pressure sores with connecting paths on the buttocks, no intervention as of now and to continue with the wound care that was being delivered in the halfway chronic Osteomyelitis of the ischial tuberosities, ID consulted and to follow the plan of care 3. Neurogenic bladder: Maintain suprapubic catheter care 4. Acute kidney injury: Currently improving, adequate hydration to maintain I/O monitoring If the patient WBC counts are not improving considering patient having hydronephrosis may need escalation of care or transfer to a specialty with urology services as per ID recommendations dialy renal parameters 5. Dysautonomia: Patient hemodynamics are really labile including his blood pressure which at times goes up with MAP less than 65 and sometimes goes above 70-75 without any intervention It is high likely related to his underlying cardioplegic situation and lack of adequate muscular tone Continue to observe and manage accordingly Continue midodrine 10 mg 3 times daily Plan: VTE/heparin twice [facility] PD[facility] Reviewed: Not Reviewed Attestations Medical Necessity Statement*: Patient will stay over midnight for the management of sepsis secondary to complicated UTI/pyelonephritis versus decubitus ulcers Time Spent in Patient Care: 16 - 35 minutes (>than 50% of time spent in counselling and/or direct pt care on unit). Other Attestations: Patient condition has been discussed at length with the patient/family, I have independently reviewed the chart labs imaging/diagnostics/EKG. the goals of care and code status with the patient/family/NOK/legal publications sales representative, and documented accordingly. I have reconciled the medications after confirmation/comorbidities/current clinical condition. The management has been done according to the current clinical condition with respect to patient goals of care and based on recommendations/guidelines. The patient/family has been informed about the current condition and further plan of care. Agreed with the plan of care and understood without any language barrier. Every effort was made to ensure accuracy of hull outfit supervisor. Any obvious errors or omissions should be clarified with the author of the document. Coding Level of Care Code 45769 Diagnoses Septic shock A41.9; R65.21 Decubitus ulcer of left hip L89.229 Neurogenic bladder N31.9 Acute kidney injury N17.9 Dysautonomia G90.1
[2025-06-20] MEDS: MELATONIN 3 MG TABLET PO (20:08)
[2025-06-21] VITALS (32 sets, daily range): BP systolic 71–214; BP diastolic 42–114; PULSE 62–83; RESP 16–27; TEMP 36.6–37.3; O2SAT 91–98; BMI 22.8
[2025-06-21] MEDS: pantoprazole 40 mg SDV IVP (04:21)
[2025-06-21 04:49] LABS: Hematocrit 32.3 % (37-53); Hemoglobin 10.30 g/dL (11.27-16.99); Mean Corpuscular HGB Conc 31.9 g/dL (30-55); Mean Corpuscular Hemoglobin 26.3 pg (27-33); Mean Corpuscular Volume 82.6 fl (82-101); Nucleated Red Blood Cells % 0 %; Platelet Count 364 10^3/cmm (157-399); Red Blood Count 3.91 10^6/uL (3.85-5.65); White Blood Count 15.83 10^3/uL (3.29-11.43)
[2025-06-21 05:04] LABS: Alanine Aminotransferase 38 U/L (0-41); Albumin Level 2.8 g/dL (3.5-5.2); Alkaline Phosphatase 84 U/L (40-130); Anion Gap 13.9 (5-19); Aspartate Amino Transferase 40 U/L (0-40); Blood Urea Nitrogen 18 mg/dL (8-23); Calcium 8.4 mg/dL (8.5-10.5); Carbon Dioxide 26 mmol/L (22-29); Chloride 107 mmol/L (98-107); Globulin 4.0 g/dL (1.3-4.6); Glucose 85 mg/dL (65-115); Magnesium 1.6 mg/dL (1.7-2.3); Osmolality Calculated 299 mOsm/kg (285-295); Sodium 144 mmol/L (136-145); Total Protein 6.8 g/dL (6.6-8.7)
[2025-06-21 05:25] LABS: Potassium 2.9 mmol/L (3.5-5.1)
--- NOTE | 2025-06-21 06:21 | P.PN_ITS ---
Subjective 2 Subjective: ID progress note T max 99.8F [place] [id number] today Medications: Reviewed: Yes Vitals/I&O/Wt Last Vital Signs Temp 98.5 F 06/21/25 05:13 Pulse 66 06/21/25 05:57 Resp 23 H 06/21/25 05:00 BP 79/48 06/21/25 05:00 Pulse Ox 95 06/21/25 05:00 O2 Del Method Room Air 06/21/25 03:30 O2 Flow Rate 2 06/20/25 17:15 06/20/25 06/20/25 06/21/25 14:59 22:59 06:59 Intake Total 735 / 735 200 / 935 700 / 1635 Output Total 950 / 950 200 / 1150 Balance 735 / 735 -750 / -15 500 / 485 Weight last 48 hrs Weight 78.5 kg Weight 73.709 kg Physical Exam 2 Narrative: Assessed via telehealth no acute distress, laying in bed, awake alert and oriented BP noted to be fluctuating betweent SBP 80s to 190s Ext: paraplegia at baseline EXT: Site of suprapubic cathter currently without discharge or signs of cellulitis. Urinary Catheter Management: Suprapubic: Cath Placed During This Visit: yes Reason for Continuing Indwelling Catheter: Accurate Measurement of Urinary Output in Critically Ill Patients Urinary Catheter Date of Insertion: 06/19/25 Urinary Catheter Time of Insertion: 00:45 Data 06/21/25 04:40 06/21/25 04:40 Micro: Microbiology 06/18/25 14:29 Urine Culture - Preliminary Urine,Clean Catch Gram Negative Rods Gram Negative Rods#2 A&P Assessment and plan 1. Chronic osteomyelitis, pelvis: 2. UTI (urinary tract infection): 3. Suprapubic catheter dysfunction: 4. Bladder calculus: 5. Hydroureteronephrosis: 6. COVID-19: Plan: 69 year old male with paraplegia, chronic sacral osteomyelitis, neurogenic bladder with h/o recurrent nephrolithiasis currently admitted with fever , chills, labile BP and h/o recent intermittent blockage of suprapubic catheter needing frequent flushing. Sacral wound assessed by genral surgery ,no current indication for debridement , continue wound care per CT directions. Pelvic osteomyelitis dates back to at least 2019, he was most recently treated with iv abx 5 months ago per patient. There is no current inidcation for treating with iv abx. In patients with chronic pelvic osteomyelitis associated with decubitus ulcers, there is no additional benefit to repeat courses of iv abx. CT abdomen and pelvis with 3 bladdder calculi Noted b/L hydroureteronephrosis without obvious obstructing calculi URine cx shows 2 colonies of GNR, prior urine cx with ESBL Proteus mirabilis WBC noted worsening change zosyn to iv meropenem 1 g iv q8h given past susceptibilities Monitor for improvement in leukocytosis, clinical improvement If continues to have persistent leukocytosis in spite of appropriate coverage, will need urology assessment given hydronepnrosis blood cx negative thus far will follow 06/21/25: Leukocytosis improving today at 15K, t max 99.8. Low grade fever may also be contributed by current covid 19 infection. Start remdesivir, with ongoing ICU stay, patient may be at higher risk of progression. Holding off on steroids for now given patient has no infiltrates on CXR. Continue meropenem, await identification of GNR in urine. D/c vancomycin over next 24 hrs if remains clinically improving. Repeat repeat renal US to assess for improvemnet in hydronephrosis with suprapubic catheter change. Will follow PDMP PDMP Reviewed: Not Reviewed Attestations 2 Medical Necessity Statement*: per admitting note Coding Level of Care Code Acute Code for [facility] Fwd Diagnoses Chronic osteomyelitis, pelvis M86.659 UTI (urinary tract infection) N39.0 Suprapubic catheter dysfunction T83.010A Bladder calculus N21.0 Hydroureteronephrosis N13.30 COVID-19 U07.1
--- NOTE | 2025-06-21 06:27 | US_ITS ---
WS: [id number] RENAL ULTRASOUND HISTORY: assess hydronephrosis COMPARISON: CT 06/18/2025 TECHNIQUE: 2-D and color Doppler imaging of the kidney submitted. Right kidney: 9.9 cm x 5.1 cm x 5.6 cm. Cortex: 1.0 cm Normal echogenicity with no hydronephrosis or mass. Left kidney: 12.3 cm x 6.0 cm x 6.4 cm. Cortex: 1.2 cm Poorly visualized kidney. Small amount of residual hydronephrosis cannot be excluded. Aorta: Limited Urinary Bladder: Nondistended. Junior catheter in place. US/US renal BI* [id number] IMPRESSION: 1. Limited quality evaluation of the kidneys. 2. Small amount of residual hydronephrosis LEFT kidney cannot be excluded. 3. No hydronephrosis RIGHT kidney.
[2025-06-21] MEDS: magnesium sulfate premix 2 GM/50 ML PIGGYBACK IV (06:44)
[2025-06-21] MEDS: heparin 5,000 unit/mL INJ 1 mL 5000 UNIT SUBCUT ×2 (07:01→18:16)
[2025-06-21] MEDS: meropenem 1,000 mg SDV 1000 MG IVP ×3 (07:01→23:25)
[2025-06-21] MEDS: remdesivir 200 MG in sodium chloride 0.9% (100 ml) 60 ML 100 MG IV (07:38)
[2025-06-21] MEDS: magnesium sulfate premix 1 GM/100 ML PIGGYBACK IV (08:49)
--- NOTE | 2025-06-21 12:23 | PC.NURSE ---
Dr. Neal to bedside, patient states that he is ok receiving blood products and that he had misunderstood when he was asked that question during his admit.
--- NOTE | 2025-06-21 12:41 | PC.NURSE ---
Report called to URBANO Hall on med surg.
--- NOTE | 2025-06-21 13:14 | PC.SOCIAL ---
IMM Update pg 2 of IMM updated and reviewed w/ patient. Copy provided and copy dated, initialed and placed in chart.
--- NOTE | 2025-06-21 13:25 | PC.NURSE ---
Transferred to room 252-2 with mask on patients face via bed. Tolerated well.
[2025-06-21 17:16] LABS: Anion Gap 15.5 (5-19); Blood Urea Nitrogen 21 mg/dL (8-23); Calcium 8.6 mg/dL (8.5-10.5); Carbon Dioxide 25 mmol/L (22-29); Chloride 107 mmol/L (98-107); Glucose 104 mg/dL (65-115); Osmolality Calculated 301 mOsm/kg (285-295); Potassium 3.5 mmol/L (3.5-5.1); Sodium 144 mmol/L (136-145)
--- NOTE | 2025-06-21 20:42 | P.PN_ITS ---
Subjective 2 Subjective: Patient seen in the morning, He is currently doing well, still having labile blood pressure readings due to his dysautonomia, In the last 24 hours had a maximum temperature of 99.8. Temperature more or less getting stabilized. WBCs are also improving CRP trending now ID on board and appreciate the recommendations Medications: Reviewed: Yes Vitals/I&O/Wt Last Vital Signs Temp 98.3 F 06/21/25 20:39 Pulse 75 06/21/25 20:39 Resp 17 06/21/25 20:39 BP 149/88 06/21/25 20:39 Pulse Ox 95 06/21/25 20:39 O2 Del Method Room Air 06/21/25 20:00 O2 Flow Rate 2 06/20/25 17:15 06/21/25 06/21/25 06/21/25 06:59 14:59 22:59 Intake Total 700 / 1635 950 / 950 490 / 1440 Output Total 200 / 1150 750 / 750 Balance 500 / 485 950 / 950 -260 / 690 Weight last 48 hrs Weight 74 kg Weight 78.5 kg Weight 73.709 kg Physical Exam 2 Narrative: General: Alert and oriented, lying comfortably without any distress, HEENT: Normocephalic, atraumatic, grossly unremarkable exam Cardio: normal rate rhythm, normal S1-S2 without any murmurs, rubs, or gallops and JVD normal Respiratory: abdomino thoracic pattern of breathing, normal vascular breathing on auscultation without any wheezes, stridor, rhonchi GI: Abdomen soft, nontender, nondistended, normoactive bowel sounds present all 4 quadrants, supra pubic catheter in place and is clean (changed in this admission) Neuro: baseline quadriplegic, but alert and oriented without any further or acute neurological deficit Extremities: palpable pulses, mild trace edema, contractures and muscle wasting appreciated on upper and lower extremities Skin: multiple decubitus ulcers on the buttocks seems chronic, adequate wound care has been provided, tissue well-perfused and normal capillary refill, pressure sores on the feet as well mainly on the left foot Urinary Catheter Management: Suprapubic: Cath Placed During This Visit: yes Reason for Continuing Indwelling Catheter: Assist Healing of Perineal & Sacral Wounds- Incontinent Patients Urinary Catheter Date of Insertion: 06/19/25 Urinary Catheter Time of Insertion: 00:45 Data 06/21/25 04:40 06/21/25 16:25 Micro: Microbiology 06/18/25 14:29 Urine Culture - Final Urine,Clean Catch Proteus mirabilis esbl Klebsiella pneumonia esbl A&P Assessment and plan 1. Septic shock: Currently resolving, 2 sets of blood cultures prelim negative, urine culture showing gram-negative rods, Proteus mirabilis and Klebsiella ESBL species sensitive to carbapenems and Zosyn as well If the patient is currently improving as per ID to discontinue vancomycin Repeat ultrasound kidney showed improvement of hydronephrosis, status post change suprapubic catheter Continue IV fluids, Nor epi as needed and midodrine continue Maintain MAP above 65 2. Decubitus ulcer of left hip: CT scan abd pelvis done, showing possible cystitis, decubitus ulcers, for detailed report refer to the imaging section Surgery consult for multiple pressure sores with connecting paths on the buttocks, no intervention as of now and to continue with the wound care that was being delivered in the senior living chronic Osteomyelitis of the ischial tuberosities, as per ID this is chronic and less likely to be the source of infection. Urine ESBL, antibiotics tailored accordingly, ID on board and follow recommendations 3. Neurogenic bladder: Maintain suprapubic catheter care 4. Acute kidney injury: Currently resolved, continue adequate hydration I/O monitoring Improved hydronephrosis status post change suprapubic catheter and antibiotics Overall significant improvement 5. Dysautonomia: Patient hemodynamics are really labile including his blood pressure which at times goes up with MAP less than 65 and sometimes goes above 70-75 without any intervention It is high likely related to his underlying cardioplegic situation and lack of adequate muscular tone Continue to observe and manage accordingly Continue midodrine 10 mg 3 times daily 6. COVID-19: Patient found to have COVID-19, currently asymptomatic however based on patient's comorbidities and significant illness continue remdesivir as per COVID-19 management Plan: VTE/heparin twice daily Patient can be transferred to [facility] Patient informed that he is okay with the blood transfusions, and he is not [employer], and does not follow any specific judaism and would prefer anything that helps him with his treatment. PDMP PDMP Reviewed: Not Reviewed Attestations 2 Medical Necessity Statement*: Patient will stay over midnight for further management of his urine ESBL infection leading to sepsis, currently resolving, CIERRA currently resolved, electrolyte imbalance requiring IV therapy Time Spent in Patient Care: 16 - 35 minutes (>than 50% of time sp ent in counselling and/or direct pt care on unit) . Other Attestations: Patient condition has been discussed at length with the patient/family, I have independently reviewed the chart labs imaging/diagnostics/EKG. the goals of care and code status with the patient/family/NOK/legal community engagement representative, and documented accordingly. I have reconciled the medications after confirmation/comorbidities/current clinical condition. The management has been done according to the current clinical condition with respect to patient goals of care and based on recommendations/guidelines. The patient/family has been informed about the current condition and further plan of care. Agreed with the plan of care and understood without any language barrier. Every effort was made to ensure accuracy of speech therapy director. Any obvious errors or omissions should be clarified with the author of the document. Coding Level of Care Code 86055 Diagnoses Septic shock A41.9; R65.21 Decubitus ulcer of left hip L89.229 Neurogenic bladder N31.9 Acute kidney injury N17.9 Dysautonomia G90.1 COVID-19 U07.1
[2025-06-21] MEDS: MELATONIN 3 MG TABLET PO (23:25)
[2025-06-22] VITALS (11 sets, daily range): BP systolic 105–150; BP diastolic 57–82; PULSE 61–76; RESP 7–18; TEMP 36.4–36.7; O2SAT 95–99
[2025-06-22 03:51] LABS: Hematocrit 33.2 % (37-53); Hemoglobin 10.30 g/dL (11.27-16.99); Mean Corpuscular HGB Conc 31.0 g/dL (30-55); Mean Corpuscular Hemoglobin 25.7 pg (27-33); Mean Corpuscular Volume 82.8 fl (82-101); Nucleated Red Blood Cells % 0 %; Platelet Count 343 10^3/cmm (157-399); Red Blood Count 4.01 10^6/uL (3.85-5.65); White Blood Count 13.46 10^3/uL (3.29-11.43)
[2025-06-22 04:15] LABS: Alanine Aminotransferase 41 U/L (0-41); Albumin Level 2.9 g/dL (3.5-5.2); Alkaline Phosphatase 87 U/L (40-130); Anion Gap 12.4 (5-19); Aspartate Amino Transferase 36 U/L (0-40); Blood Urea Nitrogen 17 mg/dL (8-23); Calcium 8.6 mg/dL (8.5-10.5); Carbon Dioxide 26 mmol/L (22-29); Chloride 110 mmol/L (98-107); Globulin 4.0 g/dL (1.3-4.6); Glucose 91 mg/dL (65-115); Magnesium 2.2 mg/dL (1.7-2.3); Osmolality Calculated 301 mOsm/kg (285-295); Potassium 3.4 mmol/L (3.5-5.1); Sodium 145 mmol/L (136-145); Total Protein 6.9 g/dL (6.6-8.7)
[2025-06-22] MEDS: pantoprazole 40 mg SDV IVP (05:09)
[2025-06-22] MEDS: meropenem 1,000 mg SDV 1000 MG IVP ×3 (06:26→22:14)
[2025-06-22] MEDS: heparin 5,000 unit/mL INJ 1 mL 5000 UNIT SUBCUT ×2 (06:26→18:05)
--- NOTE | 2025-06-22 06:54 | P.PN_ITS ---
Subjective 2 Subjective: ID progress note Afebrile in last 24 hrs. WBC trending down. Medications: Reviewed: Yes Vitals/I&O/Wt Last Vital Signs Temp 98.1 F 06/22/25 04:00 Pulse 72 06/22/25 04:00 Resp 18 06/22/25 04:00 BP 150/82 06/22/25 04:00 Pulse Ox 99 06/22/25 04:00 O2 Del Method Room Air 06/21/25 20:00 O2 Flow Rate 2 06/20/25 17:15 06/21/25 06/21/25 06/22/25 14:59 22:59 06:59 Intake Total 950 / 950 610 / 1560 Output Total 750 / 750 600 / 1350 Balance 950 / 950 -140 / 810 -600 / 210 Weight last 48 hrs Weight 74 kg Weight 78.5 kg Weight 73.709 kg Physical Exam 2 Narrative: Assessed via telehealth no acute distress, laying in bed, awake alert and oriented BP noted to be fluctuating betweent SBP 80s to 190s Ext: paraplegia at baseline EXT: Site of suprapubic cathter currently without discharge or signs of cellulitis. Urinary Catheter Management: Suprapubic: Cath Placed During This Visit: yes Reason for Continuing Indwelling Catheter: Assist Healing of Perineal & Sacral Wounds- Incontinent Patients Urinary Catheter Date of Insertion: 06/19/25 Urinary Catheter Time of Insertion: 00:45 Data 06/23/25 05:51 06/23/25 05:51 Micro: Microbiology 06/18/25 14:29 Urine Culture - Final Urine,Clean Catch Proteus mirabilis esbl Klebsiella pneumonia esbl A&P Assessment and plan 1. Chronic osteomyelitis, pelvis: 2. UTI (urinary tract infection): 3. Suprapubic catheter dysfunction: 4. Bladder calculus: 5. Hydroureteronephrosis: 6. COVID-19: Plan: 69 year old male with paraplegia, chronic sacral osteomyelitis, neurogenic bladder with h/o recurrent nephrolithiasis currently admitted with fever , chills, labile BP and h/o recent intermittent blockage of suprapubic catheter needing frequent flushing. Sacral wound assessed by genral surgery ,no current indication for debridement , continue wound care per [place] directions. Pelvic osteomyelitis dates back to at least 2019, he was most recently treated with iv abx 5 months ago per patient. There is no current inidcation for treating with iv abx. In patients with chronic pelvic osteomyelitis associated with decubitus ulcers, there is no additional benefit to repeat courses of iv abx. CT abdomen and pelvis with 3 bladdder calculi Noted b/L hydroureteronephrosis without obvious obstructing calculi URine cx shows 2 colonies of GNR, prior urine cx with ESBL Proteus mirabilis WBC noted worsening change zosyn to iv meropenem 1 g iv q8h given past susceptibilities Monitor for improvement in leukocytosis, clinical improvement If continues to have persistent leukocytosis in spite of appropriate coverage, will need urology assessment given hydronepnrosis blood cx negative thus far will follow 06/21/25: Leukocytosis improving today at 15K, t max 99.8. Low grade fever may also be contributed by current covid 19 infection. Start remdesivir, with ongoing ICU stay, patient may be at higher risk of progression. Holding off on steroids for now given patient has no infiltrates on CXR. Continue meropenem, await identification of GNR in urine. D/c vancomycin over next 24 hrs if remains clinically improving. Repeat repeat renal US to assess for improvemnet in hydronephrosis with suprapubic catheter change. Will follow 06/22: WBC continues to trend down. Ucx growing ESBL isolates. C/w Meropenem for now with plan to transition to Ertapenem 1 gm IV daily on discharge for overall 10 day course ending on 06/29/25. Can D/c Vancomycin. PDMP PDMP Reviewed: Not Reviewed Attestations 2 Medical Necessity Statement*: per admitting note Diagnoses Chronic osteomyelitis, pelvis M86.659 UTI (urinary tract infection) N39.0 Suprapubic catheter dysfunction T83.010A Bladder calculus N21.0 Hydroureteronephrosis N13.30 COVID-19 U07.1
[2025-06-22] MEDS: remdesivir 100 MG in sodium chloride 0.9% (100 ml) 100 ML IV (07:55)
--- NOTE | 2025-06-22 20:00 | P.PN_ITS ---
Subjective 2 Subjective: The patient is doing well overall. the wbcs is improving. no febrile episodes Urine cultures showed ESBL Medications: Reviewed: Yes Vitals/I&O/Wt Last Vital Signs Temp 97.9 F 06/22/25 18:00 Pulse 70 06/22/25 18:00 Resp 17 06/22/25 18:00 BP 113/73 06/22/25 18:00 Pulse Ox 95 06/22/25 16:00 O2 Del Method Room Air 06/22/25 16:00 O2 Flow Rate 2 06/20/25 17:15 06/22/25 06/22/25 06/22/25 06:59 14:59 22:59 Intake Total 1190 / 1190 860 / 2050 Output Total 600 / 1350 400 / 400 1100 / 1500 Balance -600 / 210 790 / 790 -240 / 550 Weight last 48 hrs Weight 73.936 kg Weight 74 kg Weight 78.5 kg Physical Exam 2 Narrative: General: Alert and oriented, lying comfortably without any distress, HEENT: Normocephalic, atraumatic, grossly unremarkable exam Cardio: normal rate rhythm, normal S1-S2 without any murmurs, rubs, or gallops and JVD normal Respiratory: abdomino thoracic pattern of breathing, normal vascular breathing on auscultation without any wheezes, stridor, rhonchi GI: Abdomen soft, nontender, nondistended, normoactive bowel sounds present all 4 quadrants, supra pubic catheter in place and is clean (changed in this admission) Neuro: baseline quadriplegic, but alert and oriented without any further or acute neurological deficit Extremities: palpable pulses, mild trace edema, contractures and muscle wasting appreciated on upper and lower extremities Skin: multiple decubitus ulcers on the buttocks seems chronic, adequate wound care has been provided, tissue well-perfused and normal capillary refill, pressure sores on the feet as well mainly on the left foot Urinary Catheter Management: Suprapubic: Cath Placed During This Visit: yes Reason for Continuing Indwelling Catheter: Assist Healing of Perineal & Sacral Wounds- Incontinent Patients Urinary Catheter Date of Insertion: 06/19/25 Urinary Catheter Time of Insertion: 00:45 Data 06/22/25 02:47 06/22/25 02:47 Micro: Microbiology 06/18/25 14:29 Urine Culture - Final Urine,Clean Catch Proteus mirabilis esbl Klebsiella pneumonia esbl A&P Assessment and plan 1. Chronic osteomyelitis, pelvis: 2. UTI (urinary tract infection): 3. Suprapubic catheter dysfunction: 4. Bladder calculus: 5. Hydroureteronephrosis: 6. COVID-19: Plan: 69 year old male with paraplegia, chronic sacral osteomyelitis, neurogenic bladder with h/o recurrent nephrolithiasis currently admitted with fever , chills, labile BP and h/o recent intermittent blockage of suprapubic catheter needing frequent flushing. Sacral wound assessed by genral surgery ,no current indication for debridement , continue wound care per [place] directions. Pelvic osteomyelitis dates back to at least 2019, he was most recently treated with iv abx 5 months ago per patient. There is no current inidcation for treating with iv abx. In patients with chronic pelvic osteomyelitis associated with decubitus ulcers, there is no additional benefit to repeat courses of iv abx. CT abdomen and pelvis with 3 bladdder calculi Noted b/L hydroureteronephrosis without obvious obstructing calculi URine cx shows 2 colonies of GNR, prior urine cx with ESBL Proteus mirabilis WBC noted worsening change zosyn to iv meropenem 1 g iv q8h given past susceptibilities Monitor for improvement in leukocytosis, clinical improvement If continues to have persistent leukocytosis in spite of appropriate coverage, will need urology assessment given hydronepnrosis blood cx negative thus far will follow 06/21/25: Leukocytosis improving today at 15K, t max 99.8. Low grade fever may also be contributed by current covid 19 infection. Start remdesivir, with ongoing ICU stay, patient may be at higher risk of progression. Holding off on steroids for now given patient has no infiltrates on CXR. Continue meropenem, await identification of GNR in urine. D/c vancomycin over next 24 hrs if remains clinically improving. Repeat repeat renal US to assess for improvemnet in hydronephrosis with suprapubic catheter change. Will follow 06/22: WBC continues to trend down. Ucx growing ESBL isolates. C/w Meropenem for now with plan to transition to Ertapenem 1 gm IV daily on discharge for overall 10 day course ending on 06/29/25. Can D/c Vancomycin. Will follow. PDMP PDMP Reviewed: Not Reviewed Coding Level of Care Code Acute Code for [facility] Fwd Diagnoses Chronic osteomyelitis, pelvis M86.659 UTI (urinary tract infection) N39.0 Suprapubic catheter dysfunction T83.010A Bladder calculus N21.0 Hydroureteronephrosis N13.30 COVID-19 U07.1
--- NOTE | 2025-06-22 20:23 | P.PN_ITS ---
Subjective 2 Subjective: Patient was seen in the morning, doing well. Urine showed ESBL on meropenem COVID-19 positive on remdesivir ID on board. Medications: Reviewed: Yes Vitals/I&O/Wt Last Vital Signs Temp 97.9 F 06/22/25 18:00 Pulse 70 06/22/25 18:00 Resp 17 06/22/25 18:00 BP 113/73 06/22/25 18:00 Pulse Ox 95 06/22/25 16:00 O2 Del Method Room Air 06/22/25 16:00 O2 Flow Rate 2 06/20/25 17:15 06/22/25 06/22/25 06/22/25 06:59 14:59 22:59 Intake Total 1190 / 1190 860 / 2050 Output Total 600 / 1350 400 / 400 1100 / 1500 Balance -600 / 210 790 / 790 -240 / 550 Weight last 48 hrs Weight 73.936 kg Weight 74 kg Weight 78.5 kg Physical Exam 2 Narrative: General: Alert and oriented, lying comfortably without any distress, speaking in full sentence HEENT: Normocephalic, atraumatic, grossly unremarkable exam Cardio: normal rate rhythm, normal S1-S2 without any murmurs, rubs, or gallops and JVD normal Respiratory: abdomino thoracic pattern of breathing, normal vascular breathing on auscultation without any wheezes, stridor, rhonchi GI: Abdomen soft, nontender, nondistended, normoactive bowel sounds present all 4 quadrants, supra pubic catheter in place and is clean (changed in this admission) Neuro: baseline quadriplegic, but alert and oriented without any further or acute neurological deficit Extremities: palpable pulses, mild trace edema, contractures and muscle wasting appreciated on upper and lower extremities Skin: multiple decubitus ulcers on the buttocks seems chronic, adequate wound care has been provided, tissue well-perfused and normal capillary refill, pressure sores on the feet as well mainly on the left foot Urinary Catheter Management: Suprapubic: Cath Placed During This Visit: yes Reason for Continuing Indwelling Catheter: Assist Healing of Perineal & Sacral Wounds- Incontinent Patients Urinary Catheter Date of Insertion: 06/19/25 Urinary Catheter Time of Insertion: 00:45 Data 06/22/25 02:47 06/22/25 02:47 A&P Assessment and plan 1. Chronic osteomyelitis, pelvis: CT scan abd pelvis done, showing possible cystitis, decubitus ulcers, for detailed report refer to the imaging section Surgery consult for multiple pressure sores with connecting paths on the buttocks, no intervention as of now and to continue with the wound care that was being delivered in the skilled nursing chronic Osteomyelitis of the ischial tuberosities, as per ID this is chronic and less likely to be the source of infection. Urine ESBL, antibiotics tailored accordingly to continue with meropenem, ID on board and follow recommendations Patient to be discharged on ertapenem 1 g daily till June 29 to skilled nursing with midline that will be done on Tuesday 2. Suprapubic catheter dysfunction: Patient came with possible infection of the suprapubic catheter CT abdomen pelvis showed bilateral hydronephrosis that improved on repeat renal ultrasound by suprapubic catheter change Urine with ESBL and on meropenem Continue catheter care 3. Hydroureteronephrosis: Currently resolving Adequate urine output from the suprapubic catheter Continue monitor I&O 4. COVID-19: Patient on remdesivir, continue as per COVID-19 management protocol since patient is asymptomatic however having comorbidities and immunosuppressed situation makes him vulnerable with anticipation of worsening of symptoms 5. Dysautonomia: Patient hemodynamics are really labile It is high likely related to his underlying cardioplegic situation and lack of adequate muscular tone Continue to observe and manage accordingly Continue midodrine 10 mg 3 times daily PDMP PDMP Reviewed: Not Reviewed Attestations 2 Medical Necessity Statement*: Patient will stay over midnight for further management of his urine ESBL infection that needs midline and IV ertapenem 1 g daily arrangement before sending to skilled nursing Time Spent in Patient Care: 16 - 35 minutes (>than 50% of time sp ent in counselling and/or direct pt care on unit) . Other Attestations: Patient condition has been discussed at length with the patient/family, I have independently reviewed the chart labs imaging/diagnostics/EKG. the goals of care and code status with the patient/family/NOK/legal dairy supplies sales representative, and documented accordingly. I have reconciled the medications after confirmation/comorbidities/current clinical condition. The management has been done according to the current clinical condition with respect to patient goals of care and based on recommendations/guidelines. The patient/family has been informed about the current condition and further plan of care. Agreed with the plan of care and understood without any language barrier. Every effort was made to ensure accuracy of kraft digester operator. Any obvious errors or omissions should be clarified with the author of the document. Coding Level of Care Code 03743 Diagnoses Chronic osteomyelitis, pelvis M86.659 Suprapubic catheter dysfunction T83.010A Hydroureteronephrosis N13.30 COVID-19 U07.1 Dysautonomia G90.1
[2025-06-22] MEDS: MELATONIN 3 MG TABLET PO (22:15)
[2025-06-23] VITALS (11 sets, daily range): BP systolic 91–146; BP diastolic 55–87; PULSE 55–68; RESP 17–18; TEMP 36.4–36.7; O2SAT 95–98
[2025-06-23] MEDS: pantoprazole 40 mg SDV IVP (05:53)
[2025-06-23] MEDS: heparin 5,000 unit/mL INJ 1 mL 5000 UNIT SUBCUT ×2 (05:54→16:10)
[2025-06-23 06:07] LABS: Hematocrit 31.8 % (37-53); Hemoglobin 9.40 g/dL (11.27-16.99); Mean Corpuscular HGB Conc 29.6 g/dL (30-55); Mean Corpuscular Hemoglobin 25.3 pg (27-33); Mean Corpuscular Volume 85.7 fl (82-101); Nucleated Red Blood Cells % 0 %; Platelet Count 275 10^3/cmm (157-399); Red Blood Count 3.71 10^6/uL (3.85-5.65); White Blood Count 10.42 10^3/uL (3.29-11.43)
[2025-06-23] MEDS: meropenem 1,000 mg SDV 1000 MG IVP ×3 (06:10→23:13)
[2025-06-23 06:16] LABS: Alanine Aminotransferase 33 U/L (0-41); Albumin Level 2.4 g/dL (3.5-5.2); Alkaline Phosphatase 84 U/L (40-130); Anion Gap 16.3 (5-19); Aspartate Amino Transferase 27 U/L (0-40); Blood Urea Nitrogen 16 mg/dL (8-23); Calcium 8.2 mg/dL (8.5-10.5); Carbon Dioxide 21 mmol/L (22-29); Chloride 108 mmol/L (98-107); Globulin 3.8 g/dL (1.3-4.6); Glucose 83 mg/dL (65-115); Osmolality Calculated 294 mOsm/kg (285-295); Potassium 3.3 mmol/L (3.5-5.1); Sodium 142 mmol/L (136-145); Total Protein 6.2 g/dL (6.6-8.7)
[2025-06-23] MEDS: remdesivir 100 MG in sodium chloride 0.9% (100 ml) 100 ML IV (08:35)
--- NOTE | 2025-06-23 14:31 | P.PN_ITS ---
Subjective 2 Subjective: Patient was seen in the morning, doing well. Urine showed ESBL on meropenem COVID-19 positive on remdesivir wbc normal ID on board. Medications: Reviewed: Yes Vitals/I&O/Wt Last Vital Signs Temp 98.0 F 06/23/25 14:00 Pulse 59 L 06/23/25 14:00 Resp 18 06/23/25 14:00 BP 91/55 06/23/25 14:00 Pulse Ox 97 06/23/25 11:26 O2 Del Method Room Air 06/23/25 11:26 O2 Flow Rate 2 06/20/25 17:15 06/22/25 06/23/25 06/23/25 22:59 06:59 14:59 Intake Total 860 / 2050 240 / 2290 580 / 580 Output Total 1100 / 1500 600 / 2100 Balance -240 / 550 -360 / 190 580 / 580 Weight last 48 hrs Weight 73.936 kg Weight 73.936 kg Physical Exam 2 Narrative: General: Alert and oriented, lying comfortably without any distress, speaking in full sentence HEENT: Normocephalic, atraumatic, grossly unremarkable exam Cardio: normal rate rhythm, normal S1-S2 without any murmurs, rubs, or gallops and JVD normal Respiratory: abdomino thoracic pattern of breathing, normal vascular breathing on auscultation without any wheezes, stridor, rhonchi GI: Abdomen soft, nontender, nondistended, normoactive bowel sounds present all 4 quadrants, supra pubic catheter in place and is clean (changed in this admission) Neuro: baseline quadriplegic, but alert and oriented without any further or acute neurological deficit Extremities: palpable pulses, mild trace edema, contracture and muscle wasting appreciated on upper and lower extremities Skin: multiple decubitus ulcers on the buttocks seems chronic, adequate wound care has been provided, tissue well-perfused and normal capillary refill, pressure sores on the feet as well mainly on the left foot Urinary Catheter Management: Suprapubic: Cath Placed During This Visit: yes Reason for Continuing Indwelling Catheter: Assist Healing of Perineal & Sacral Wounds- Incontinent Patients Urinary Catheter Date of Insertion: 06/19/25 Urinary Catheter Time of Insertion: 00:45 Data 06/23/25 05:51 06/23/25 05:51 Micro: Microbiology 06/18/25 13:51 Blood Culture - Final Blood NO GROWTH AFTER 5 DAYS 06/18/25 13:57 Blood Culture - Final Blood NO GROWTH AFTER 5 DAYS A&P Assessment and plan 1. Chronic osteomyelitis, pelvis: CT scan abd pelvis done, showing possible cystitis, decubitus ulcers, for detailed report refer to the imaging section Surgery consult for multiple pressure sores with connecting paths on the buttocks, no intervention as of now and to continue with the wound care that was [facility] chronic Osteomyelitis of the ischial tuberosities, as per ID this is chronic and less likely to be the source of infection. Urine ESBL, antibiotics tailored accordingly to continue with meropenem, ID on board and follow recommendations Patient to be discharged on ertapenem 1 g daily till June 29 to [facility] with midline that will be done on Tuesday 2. Urinary tract infection associated with indwelling urethral catheter, initial encounter: Patient came with possible infection of the suprapubic catheter CT abdomen pelvis showed bilateral hydronephrosis that improved on repeat renal ultrasound by suprapubic catheter change Urine with ESBL and on meropenem transition to Ertapenem 1 gm IV daily on discharge for overall 10 day course ending on 06/29/25 as per ID recommendation Continue catheter care 3. Suprapubic catheter dysfunction: as mentioned above 4. Hydroureteronephrosis: Currently resolving Adequate urine output from the suprapubic catheter Continue monitor I&O 5. COVID-19: Patient on remdesivir, continue as per COVID-19 management protocol since patient is asymptomatic however having comorbidities and immunosuppressed situation makes him vulnerable with anticipation of worsening of symptoms 6. Dysautonomia: Patient hemodynamics are really labile It is high likely related to his underlying cardioplegic situation and lack of adequate muscular tone Continue to observe and manage accordingly Continue midodrine 10 mg 3 times daily PDMP PDMP Reviewed: Not Reviewed Attestations 2 Medical Necessity Statement*: Patient will stay over midnight for further management of his urine ESBL infection that needs midline and IV ertapenem 1 g daily arrangement before sending to [facility] Time Spent in Patient Care: 16 - 35 minutes (>than 50% of time sp ent in counselling and/or direct pt care on unit) . Other Attestations: Patient condition has been discussed at length with the patient/family, I have independently reviewed the chart labs imaging/diagnostics/EKG. the goals of care and code status with the patient/family/NOK/legal sales representative [employer], and documented accordingly. I have reconciled the medications after confirmation/comorbidities/current clinical condition. The management has been done according to the current clinical condition with respect to patient goals of care and based on recommendations/guidelines. The patient/family has been informed about the current condition and further plan of care. Agreed with the plan of care and understood without any language barrier. Every effort was made to ensure accuracy of performance architect. Any obvious errors or omissions should be clarified with the author of the document. Coding Level of Care Code 34514 Diagnoses Chronic osteomyelitis, pelvis M86.659 Urinary tract infection associated with indwelling urethral catheter, initial encounter T83.511A; N39.0 Urinary tract infection type: catheter-associated UTI Indwelling urinary catheter type: indwelling urethral catheter Encounter type: initial encounter Suprapubic catheter dysfunction T83.010A Hydroureteronephrosis N13.30 COVID-19 U07.1 Dysautonomia G90.1
--- NOTE | 2025-06-23 19:40 | PM.MISC ---
Miscellaneous Note Purpose of Documentation: WBC now trending down to 10,000. Afberile. Recommend discharge with iv ertapenem until 06/29/24. ID to sign off, please call with any further questions
[2025-06-23] MEDS: potassium chloride oral liq 20 mEq/15 mL UDC 40 MEQ PO (20:45)
[2025-06-23] MEDS: MELATONIN 3 MG TABLET PO (20:46)
[2025-06-24] VITALS (10 sets, daily range): BP systolic 76–165; BP diastolic 48–84; PULSE 0–69; RESP 16–18; TEMP 36.6–36.8; O2SAT 95–98
[2025-06-24 05:18] LABS: Hematocrit 30.8 % (37-53); Hemoglobin 9.50 g/dL (11.27-16.99); Mean Corpuscular HGB Conc 30.8 g/dL (30-55); Mean Corpuscular Hemoglobin 25.7 pg (27-33); Mean Corpuscular Volume 83.2 fl (82-101); Nucleated Red Blood Cells % 0 %; Platelet Count 253 10^3/cmm (157-399); Red Blood Count 3.70 10^6/uL (3.85-5.65); White Blood Count 9.67 10^3/uL (3.29-11.43)
[2025-06-24 05:40] LABS: Alanine Aminotransferase 36 U/L (0-41); Albumin Level 2.8 g/dL (3.5-5.2); Alkaline Phosphatase 92 U/L (40-130); Anion Gap 13.2 (5-19); Aspartate Amino Transferase 32 U/L (0-40); Blood Urea Nitrogen 17 mg/dL (8-23); Calcium 8.3 mg/dL (8.5-10.5); Carbon Dioxide 23 mmol/L (22-29); Chloride 111 mmol/L (98-107); Globulin 3.4 g/dL (1.3-4.6); Glucose 85 mg/dL (65-115); Osmolality Calculated 297 mOsm/kg (285-295); Potassium 4.2 mmol/L (3.5-5.1); Sodium 143 mmol/L (136-145); Total Protein 6.2 g/dL (6.6-8.7)
[2025-06-24] MEDS: pantoprazole 40 mg SDV IVP (05:54)
[2025-06-24] MEDS: heparin 5,000 unit/mL INJ 1 mL 5000 UNIT SUBCUT (05:54)
[2025-06-24] MEDS: meropenem 1,000 mg SDV 1000 MG IVP ×2 (06:23→13:42)
[2025-06-24 06:24] LABS: Slide Review Slide Review Perform
[2025-06-24] MEDS: remdesivir 100 MG in sodium chloride 0.9% (100 ml) 100 ML IV (09:42)
--- NOTE | 2025-06-24 10:11 | PICC.NOTE ---
Midline placed to left basilic vein. Referred to vascular access nurse for midline placement due to need for IV antibiotics x 5 days. Risks and benefits discussed and informed consent obtained from pt. Pt with history of paraplegia but able to make his laure and verbalized understanding of all risks and benefits. Left arm assessed with left basilic vein measuring 5.4 mm, straight, and apparent best choice for placement. Using sterile technique and MST, left basilic vein accessed x 1 stick. Mid-arm circumference measured 10 cm from left AC 31 cm. Trimmed cath 10 cm with 0 cm external length noted. Line secured with stat-lock. Insertion site covered with Biopatch and TSM. Report given to bedside nurse, URBANO Tan. Written educational material, including SASH mat and written instructions on how to flush midline, provided to patient. Pt to be discharged back to [facility]. Charge nurse notified that written instructions for midline care and maintenance are to be sent with patient chart to care facility.
--- NOTE | 2025-06-24 15:15 | P.DS_ITS ---
Discharge Providers Date of Admission: 06/18/25 18:26 Date of Discharge: June 24, 2025 Attending Provider at Admission: Ang Neal MD Attending Provider at Discharge: Ang Neal MD Primary Care Provider: Bereket Dickson DO Diagnoses at Discharge Discharge Diagnosis 1. Chronic osteomyelitis, pelvis: 2. Urinary tract infection associated with indwelling urethral catheter, initial encounter: 3. Suprapubic catheter dysfunction: 4. Bladder calculus: 5. Hydroureteronephrosis: 6. COVID-19: Reason for Visit Reason for Visit: not eating or drinking Brief History: History as per the previous notes and the patient: Curtis Carrera is a 69 year old male bedridden with past medical history of qu adriplegia since more than 30 yrs due to accident, bed ridden secondary to quadriplegia, decubitus ulcer of the left hip with multiple tracts and soiled with stools, chronic urinary tract infection, neurogenic bladder on suprapubic cath presented with decreased appetite and feeling of unwell. the patient is wide awake and alert and complained of having decrease appetite, with some feeling of chills but not high grade fever. he also reported mild nausea but not actively vomiting. no abd pain or any diarrhea. no lower leg swellings or any chest pain. he also informed having on and off mild shortness of breath but not distressed lately. In the ER the patient was having labile blood pressure and leukocytosis with high inflammatory markers. Due to his labile blood pressure that was responsive to fluids patient was admitted to ICU as a case of septic shock since there is high likely chance of having infectious source of his presentation. Hospital Course Hospital Course patient admitted as a case of sepsis and septic shock under initial ICU monitoring requiring NE and adequate hydration. Based on patient decubitus ulcers and CT scan showing possible chronic osteomyelitis of the pelvic region.surgery was also taken on board and there was no surgical intervention. Initially it was perceived that patient does not want blood transfusions and could be Zoroastrianism as he refused for blood transfusions. He was also not keen to have aggressive interventions initially therefore decided to be DNR. During the course of his hospital stay patient improved and further informed that he is okay with full resuscitation and also blood transfusion if it is improving him. And therefore his wishes were respected. ID was consulted and taken the patient was treated with broad-spectrum antibiotics. Sepsis workup was sent. He suprapubic catheter was also changed which seems to be infected and was having mild slough and pus around. His CT scan showed hydronephrosis initially and after changing the suprapubic catheter repeat renal ultrasound showed resolution of hydronephrosis. Blood cultures were negative however urine showed ESBL. He was started on meropenem. Later switched to ertapenem to complete the course till 29 June 2025 as per ID recommendations. The patient significantly improved during his hospital stay and remained stable. The patient was given adequate wound care to the decubitus ulcers which were cleaned and did not show any signs of active infection on clinical examination and assessment. He was also having labile blood pressures on and off and was started on midodrine. This was most likely related to dysautonomia. Further sepsis workup also revealed the patient has COVID-19 so therefore based upon his comorbidities and immunosuppressive duration he was started on remdesivir. All of his comorbid conditions were also managed accordingly as inpatient and optimized. After reviewing of the patient's labs diagnostics and evaluating for stability and patient status at baseline, discharge were proceeded. Patient was provided with medications that were were reconciled after confirmation and according to patient comorbidities and appropriate follow-ups and referrals were provided at the time of discharge/transfer. patient understanding/establishing the stability of the current condition was considered during discharge/Transfer with all the risk and benefits thoroughly explained. Patient condition has been discussed at length with the patient/family, I have independently reviewed the chart labs imaging/diagnostics/EKG. the goals of care and code status with the patient/family/NOK/legal account retention representative, and documented accordingly. The management has been done according to the current clinical condition with respect to patient goals of care and based on recommendations/guidelines. The patient/family has been informed about the current condition and further plan of care. Agreed with the plan of care and understood without any language barrier. Every effort was made to ensure accuracy of perioperative assistant. Any obvious errors or omissions should be clarified with the author of the document. Physical Exam Narrative: General: Alert and oriented, lying comfortably without any distress, speaking in full sentence, on room air HEENT: Normocephalic, atraumatic, grossly unremarkable exam Cardio: normal rate rhythm, normal S1-S2 without any murmurs, rubs, or gallops and JVD normal Respiratory: abdomino thoracic pattern of breathing, normal vascular breathing on auscultation without any wheezes, stridor, rhonchi GI: Abdomen soft, nontender, nondistended, normoactive bowel sounds present all 4 quadrants, supra pubic catheter in place and is clean (changed in this admission) Neuro: baseline quadriplegic, but alert and oriented without any further or acute neurological deficit Extremities: palpable pulses, mild trace edema, contracture and muscle wasting appreciated on upper and lower extremities Skin: multiple decubitus ulcers on the buttocks seems chronic, adequate wound care has been provided, tissue well-perfused and normal capillary refill, pressure sores on the feet as well mainly on the left foot Urinary Catheter Management: Suprapubic: Cath Placed During This Visit: yes Reason for Continuing Indwelling Catheter: Other Urinary Catheter Date of Insertion: 06/19/25 Urinary Catheter Time of Insertion: 00:45 Discharge Data Studies Completed and Pending Completed Studies During Hospitalization Category Date Time Status CT abdomen pelvis wo con [id number] Stat Cat Scan 06/18/25 15:38 Completed XR chest 1V portable [id number] Stat Exams 06/18/25 14:38 Completed US renal BI* [id number] Routine Ultrasound 06/21/25 06:27 Completed Pending at discharge Category Date Time Status CBC Auto Diff [Complete Blood Count w/Auto] AM LABS Lab 06/25/25 04:00 Ordered CMP [Comprehensive Metabolic Panel] AM LABS Lab 06/25/25 04:00 Ordered Radiology Impressions Chest X-Ray 06/18/25 14:38 Impression: Atherosclerosis. Abdomen/Pelvis CT 06/18/25 15:38 IMPRESSION: 1. Urinary bladder decompressed around a suprapubic catheter balloon. There is thickening of the wall and intraluminal air likely related to the suprapubic catheter, however cystitis cannot be excluded. There are 3 large bladder calcifications which are new since July 31, 2019. 2. Ucvc-yo-uleclqny bilateral hydroureteronephrosis. Small bilateral renal stones are present. No obstructing ureteral stone is seen. 3. Copious amount of fecal material in the rectosigmoid region with a mild amount of fecal material throughout the remainder of the colon. 4. Bilateral decubitus ulcers extending to the ischial tuberosities bilaterally with increased sclerosis in the ischial tuberosities suspicious for chronic osteomyelitis. These findings have progressed since July 31, 2019. If clinically indicated, MRI may be helpful for further evaluation. 5. 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 COMMENTS: For patients with an IVC filter, recommend assessment for a management plan for the patient's IVC filter. If there is no established management plan, recommend referral to an interventional clinician on a nonemergent basis for evaluation. Renal Ultrasound 06/21/25 06:27 IMPRESSION: 1. Limited quality evaluation of the kidneys. 2. Small amount of residual hydronephrosis LEFT kidney cannot be excluded. 3. No hydronephrosis RIGHT kidney. Laboratory Results WBC 9.67 10^3/uL (3.29-11.43) 06/24/25 04:47 RBC 3.70 10^6/uL (3.85-5.65) L 06/24/25 04:47 Hgb 9.50 g/dL (11.27-16.99) L 06/24/25 04:47 Hct 30.8 % (37-53) L 06/24/25 04:47 MCV 83.2 fl (82-101) 06/24/25 04:47 MCH 25.7 pg (27-33) L 06/24/25 04:47 MCHC 30.8 g/dL (30-55) 06/24/25 04:47 RDW 16.2 % (12.1-15.1) H 06/24/25 04:47 Plt Count 253 10^3/cmm (157-399) 06/24/25 04:47 MPV 9.1 fL (7.4-10.4) 06/24/25 04:47 Neut % (Auto) 65.0 % 06/24/25 04:47 Lymph % (Auto) 22.5 % 06/24/25 04:47 [place] % (Auto) 7.1 % 06/24/25 04:47 Eos % (Auto) 4.1 % 06/24/25 04:47 Baso % (Auto) 0.3 % 06/24/25 04:47 Neut # (Auto) 6.27 10^3/uL (1.8-7.7) 06/24/25 04:47 Lymph # (Auto) 2.2 10^3/uL (0.8-4.8) 06/24/25 04:47 [place] # (Auto) 0.7 10^3/uL (0.2-0.9) 06/24/25 04:47 Eos # (Auto) 0.4 10^3/uL (0.0-0.8) 06/24/25 04:47 Baso # (Auto) 0.0 10^3/uL (0.0-0.1) 06/24/25 04:47 Nucleated RBC % (auto) 0 % 06/24/25 04:47 Nucleated RBCs # 0.0 /100WBC 06/24/25 04:47 ESR > 120 mm/hr (0-10) H 06/18/25 13:51 Sodium 143 mmol/L (136-145) 06/24/25 04:47 Potassium 4.2 mmol/L (3.5-5.1) 06/24/25 04:47 Chloride 111 mmol/L (98-107) H 06/24/25 04:47 Carbon Dioxide 23 mmol/L (22-29) 06/24/25 04:47 Anion Gap 13.2 (5-19) 06/24/25 04:47 BUN 17 mg/dL (8-23) 06/24/25 04:47 Creatinine 0.6 mg/dL (0.7-1.2) L 06/24/25 04:47 GFR Calculation 134.0 mL/min (90-130) H 06/24/25 04:47 Glucose 85 mg/dL (65-115) 06/24/25 04:47 Calculated Osmolality 297 mOsm/kg (285-295) H 06/24/25 04:47 Lactic Acid 1.5 mmol/L (0.5-2.2) 06/19/25 04:03 Calcium 8.3 mg/dL (8.5-10.5) L 06/24/25 04:47 Phosphorus 2.2 mg/dL (2.5-4.5) L 06/22/25 02:47 Magnesium 2.2 mg/dL (1.7-2.3) 06/22/25 02:47 Total Bilirubin 0.4 mg/dL (0.15-1.2) 06/24/25 04:47 AST 32 U/L (0-40) 06/24/25 04:47 ALT 36 U/L (0-41) 06/24/25 04:47 Alkaline Phosphatase 92 U/L (40-130) 06/24/25 04:47 C-Reactive Protein 72.8 mg/L (0.0-4.9) H 06/21/25 04:40 Total Protein 6.2 g/dL (6.6-8.7) L 06/24/25 04:47 Albumin 2.8 g/dL (3.5-5.2) L 06/24/25 04:47 Globulin 3.4 g/dL (1.3-4.6) 06/24/25 04:47 Urine Color Cancelled 06/18/25 14:29 Urine Color [place] (Yellow) A 06/18/25 14: Urine Appearance Cancelled 06/18/25 14: Urine Appearance Turbid (CLEAR) A 06/18/25 14: Urine pH 8.5 (5-7) A 06/18/25 14: Urine pH Cancelled 06/18/25 14: Ur Specific [place] 1.014 (1.005-1.030) 06/18/25 14: Ur Specific [place] Cancelled 06/18/25 14: Urine Protein 2+ (Negative) A 06/18/25 14: Urine Protein Cancelled 06/18/25 14: Urine Glucose (UA) Cancelled 06/18/25 14: Urine Glucose (UA) Negative (Normal) 06/18/25 14: Urine Ketones Cancelled 06/18/25 14: Urine Ketones Trace (Negative) 06/18/25 14: Urine Blood 3+ (Negative) A 06/18/25 14: Urine Blood Cancelled 06/18/25 14: Urine Nitrate Cancelled 06/18/25 14: Urine Nitrate Positive (Negative) A 06/18/25 14: Urine Bilirubin Cancelled 06/18/25 14: Urine Bilirubin Negative (Negative) 06/18/25 14: Prot Sulfosalicylic Acd Cancelled 06/18/25 14: Urine Urobilinogen 0.2 mg/dL (Negative) 06/18/25 14: Urine Urobilinogen Cancelled 06/18/25 14: Ur Leukocyte Esterase 3+ (Negative) A 06/18/25 14: Ur Leukocyte Esterase Cancelled 06/18/25 14:29 Urine RBC >100 /hpf (0-2) H 06/18/25 14:29 Urine RBC Cancelled 06/18/25 14:29 Urine WBC >100 /hpf (0-5) H 06/18/25 14:29 Urine WBC Cancelled 06/18/25 14:29 Ur Squamous Epith Cells 6-10 /hpf (0-5) 06/18/25 14:29 Ur Squamous Epith Cells Cancelled 06/18/25 14:29 Ur Transition Epith Cell Cancelled 06/18/25 14:29 Ur Renal Epithelial Cell Cancelled 06/18/25 14:29 Calcium Oxalate Crystal Cancelled 06/18/25 14:29 Uric Acid Crystals Cancelled 06/18/25 14:29 Triple Phos Crystals Cancelled 06/18/25 14:29 Other Crystals Cancelled 06/18/25 14:29 Amorphous Sediment 2+ /hpf 06/18/25 14:29 Amorphous Sediment Cancelled 06/18/25 14:29 Urine Bacteria 4+ /hpf (NONE) H 06/18/25 14:29 Urine Bacteria Cancelled 06/18/25 14:29 Hyaline Casts 73.42 /lpf 06/18/25 14:29 Hyaline Casts Cancelled 06/18/25 14:29 Fine Granular Casts Cancelled 06/18/25 14:29 Coarse Granular Casts Cancelled 06/18/25 14:29 RBC Casts Cancelled 06/18/25 14:29 Other Casts Cancelled 06/18/25 14:29 Urine Mucus Cancelled 06/18/25 14:29 Urine Trichomonas Cancelled 06/18/25 14:29 Urine Yeast Cancelled 06/18/25 14:29 Urine Sperm Cancelled 06/18/25 14:29 Ur Oval Fat Bodies Cancelled 06/18/25 14:29 Vancomycin Trough 15.3 ug/mL (10-15) H 06/20/25 05:40 Influenza A (PCR) Negative (Negative) 06/18/25 17:01 Influenza Type B (PCR) Negative (Negative) 06/18/25 17:01 RSV (PCR) Negative (Negative) 06/18/25 17:01 SARS-CoV-2 (PCR) Positive (Negative) A 06/18/25 17:01 Blood Type A Positive 06/18/25 14:56 Rho(D) Type Rh positive 06/18/25 14:56 Antibody Screen Negative 06/18/25 14:56 Vitals Last Vital Signs Temp 98.0 F 06/24/25 12:00 Pulse 66 06/24/25 12:00 Resp 18 06/24/25 12:00 BP 148/83 06/24/25 12:00 Pulse Ox 98 06/24/25 12:00 O2 Del Method Room Air 06/24/25 12:00 O2 Flow Rate 2 06/20/25 17:15 Discharge Plan Discharge Patient Disposition: Xfer SNF Condition: Stable Prescriptions: New midodrine 5 mg Tablet 10 mg PO TID 60 Days Qty: 360 0RF Phospha 250 Neutral 250 mg Tablet 1 tab PO BID 3 Days Qty: 6 0RF gabapentin 100 mg Capsule 100 mg PO BID 60 Days Qty: 120 0RF ertapenem 1 gram recon soln 1 g IV DAILY 6 Days remdesivir 100 mg recon soln 100 mg IV Q24H 3 Days Rx Instructions: start on day 2 of therapy Continued polyethylene glycol 3350 [Miralax] 17 gram/dose powder 17 g PO DAILY PRN (Reason: Constipation) Fleet Enema 19-7 gram/118 mL enema 118 ml HI DAILY PRN (Reason: Constipation) bismuth subsalicylate [Pepto-Bismol] 262 mg/15 mL suspension 524 mg PO Q1H PRN (Reason: UPSET STOMACH ) Rx Instructions: do not exceed 8 doses in a 24 hour period baclofen 10 mg tablet 10 mg PO TID tramadol 50 mg tablet 50 mg PO Q8H PRN (Reason: Pain) bisacodyl [Dulcolax (bisacodyl)] 10 mg suppository 10 mg HI QDAY PRN (Reason: Constipation) magnesium hydroxide [Milk of Magnesia] 400 mg/5 mL suspension 5 ml PO QDAY PRN (Reason: Constipation) acetaminophen [Tylenol] 325 mg tablet 650 mg PO Q6H PRN (Reason: Pain) multivitamin with iron Tablet 1 tab PO QDAY melatonin 5 mg capsule 5 mg PO DAILY sennosides-docusate sodium [Stool Softener-Laxative] 8.6-50 mg Tablet 1 tab-cap PO DAILY tramadol 50 mg tablet 100 mg PO BEDTIME Renacidin 1,980.6 mg-59.4 mg-980.4mg/30mL solution 30 ml irrigation DAILY Discontinued nitrofurantoin monohyd/m-cryst 100 mg capsule 100 mg PO BID [facility] Therapist OK for DC: Infectious Disease Discharge Order = DC NOW: Discharge Order (Routine); Ordered 06/24/25 Ordered By: Ang Neal Referrals: [facility] [Outside] Bereket Dickson DO [Primary Care Provider, Internal Medicine] Discharge Diet: Advance as tolerated Discharge Activity: Resume usual activity Patient Instructions: Ertapenem (By injection), Midline Catheter (GEN), Opioid Safety, Patient Portal & Barbara Instructions Discharge Attestations Time Spent in Discharge Care*: greater than 30 min Specific Discharge Activities: educating patient, educating and/or supporting family/caregiver, discussing with pcp/other providers, discussing with casey saw operator/social workers/dc planners, documenting/other paperwork and evaluating patient/reviewing data Status at Discharge: Cognitive status at discharge: cognitively intact , Behavioral status at discharge: cooperative , Functional status at discharge: bed bound , Overall status at discharge: patient is back to baseline Quality Metrics Clinical Quality Measures [ No reported AMI, CVA or VTE this stay] Coding Level of Care Code 96483 Diagnoses Chronic osteomyelitis, pelvis M86.659 Urinary tract infection associated with indwelling urethral catheter, initial encounter T83.511A; N39.0 Encounter type: initial encounter Indwelling urinary catheter type: indwelling urethral catheter Urinary tract infection type: catheter-associated UTI Suprapubic catheter dysfunction T83.010A Bladder calculus N21.0 Hydroureteronephrosis N13.30 COVID-19 U07.1
== END 2025-06-24 16:30 | disposition skilled nursing facility (03) | DRG 871 ==
LOC: ER 18:44 → ICU 20:21 → MEDSURG 06-21 13:32
PROVIDERS: Emergency Medicine; Student in an Organized Health Care Education/Training Program; Admitting Provider Student in an Organized Health Care Education/Training Program; Emergency Provider Family Medicine; PCP Internal Medicine; Visit Provider Student in an Organized Health Care Education/Training Program
DX: A41.9 Sepsis, unspecified organism (principal); G82.50 Quadriplegia, unspecified; R65.21 Severe sepsis with septic shock; U07.1 COVID-19; M86.68 Other chronic osteomyelitis, other site; N39.0 Urinary tract infection, site not specified; T83.592A Infection and inflammatory reaction due to indwelling ureteral stent, initial encounter; N13.30 Unspecified hydronephrosis; N17.9 Acute kidney failure, unspecified; G82.20 Paraplegia, unspecified; Z16.12 Extended spectrum beta lactamase (ESBL) resistance; N21.0 Calculus in bladder; L89.229 Pressure ulcer of left hip, unspecified stage; N31.2 Flaccid neuropathic bladder, not elsewhere classified; L89.309 Pressure ulcer of unspecified buttock, unspecified stage; Y92.9 Unspecified place or not applicable; G90.1 Familial dysautonomia [Riley-Day]
CPT/HCPCS: 36415; 36569; 51702; 71045; 74176; 76770; 80048; 80053; 80202; 81001; 83605; 83735; 84100; 85025; 85651; 86140; 86850; 86900; 87040; 87077; 87086; 87186; 87637; 93005; 96365; 96367; 96372; 96375; 99285; C1751; J0248; J1644; J2185; J2470; J2543; J3373; J3475; J7030; J7050; J7120; J9999; Q3014